=== PATIENT | female | born 1955 | race Caucasian/White ===

== ENCOUNTER → 2020-07-02 08:18 | Outpatient (BNVA) | payer OTHER, SELFPAY | PROVIDERS: PCP Internal Medicine; Referring Provider Internal Medicine; Visit Provider Orthopaedic Surgery | DX: R26.81 Unsteadiness on feet (principal); R53.1 Weakness; M23.91 Unspecified internal derangement of right knee | CPT/HCPCS: 99214 ==

== ENCOUNTER 2020-07-06 12:00 | Outpatient (RCR) | payer OTHER, SELFPAY ==
--- NOTE | 2020-07-06 12:49 | MHC.PT.DC ---
[facility] [place] Office [place] Office [place] Office [address] Tim Sharpe [address] [phone] F: [phone] F: [phone] F: [phone] F: [phone] Physical Therapy Discharge Report Diagnosis: Internal derangement of R knee Date of Surgery: NA Date of Evaluation: 06/09/20 Date of Discharge: 07/06/20 Treatments to Date: 8 Cancellations to Date: 0 No Shows to Date: 0 Discharge Status: Achieved Goals Independent with HEP Discharge Summary: 07/06/20- Pt arrived without her walker today. Per pt she has been walking around without her walker. She only gets nervous if someone bumps into her. She was continued with B LE strengthening exercises. She had no knee pain today. She however stated she had low back pain yesterday. She has been performing lumbar stabs and this has been helping her with the pain.She has been walking without an AD however continues to demonstrate toe heel pattern. When cued to perform heel toe pattern pt gets very unsteady. Unsure if pt has had this gait pattern prior to the onset of knee pain. Her toe heel gait pattern does not coincide with muscle strength assessment. Pt was initially sent her for knee pain and is currently pain free. She has achieved all goals set for her. Pt has h/o chronic back pain and has occasional flare ups however she is able to manage her pain with exercises. Pt d/c from therapy today and was advised to continue performing all her HEPs. Electronically signed by: Emily Moreland DPT Please sign and return to therapist. Thank you for your referral.
== END 2020-07-06 12:49 | disposition other institution (70) ==
LOC: HO.PT 12:00
PROVIDERS: PCP Internal Medicine; Visit Provider Orthopaedic Surgery
DX: M23.91 Unspecified internal derangement of right knee (principal)
CPT/HCPCS: 97110; 97140; 97530

== ENCOUNTER → 2020-08-19 10:10 | Outpatient (BNVA) | payer OTHER, SELFPAY | PROVIDERS: PCP Internal Medicine; Visit Provider Anesthesiology | DX: M47.817 Spondylosis without myelopathy or radiculopathy, lumbosacral region (principal) | CPT/HCPCS: 99202 ==

== ENCOUNTER → 2020-09-22 08:44 | Outpatient (BNVA) | payer OTHER, SELFPAY | PROVIDERS: PCP Internal Medicine; Visit Provider Internal Medicine Pulmonary Disease | DX: J44.9 Chronic obstructive pulmonary disease, unspecified (principal); J20.9 Acute bronchitis, unspecified; Z91.09 Other allergy status, other than to drugs and biological substances; Z87.891 Personal history of nicotine dependence | CPT/HCPCS: 99212 ==

== ENCOUNTER 2020-10-20 07:03 | Outpatient (REF) | payer OTHER, SELFPAY ==
--- NOTE | ~2020-10-20 | FL_ITS ---
EXAMINATION: XR FLUOROSCOPY WITH IMAGES CLINICAL INFORMATION: Spondylosis without myelopathy or radiculopathy lumbar sacral region. COMPARISON: None. TECHNIQUE: Fluoroscopy performed by Mariluz Shah NP. Fluoroscopy time: 0.9 minutes. DAP: 6 Gycm2. Images: 6. FINDINGS: Images demonstrate needle placement and contrast injection adjacent to the bilateral lateral L3, L4 and L5 vertebral bodies near the neuroforamen. FL/FL guidance in treatment room IMPRESSION: Fluoroscopy guidance for spinal injection.
== END 2020-10-20 07:04 | disposition home or self-care (01) ==
LOC: HO.RADIR 07:03
PROVIDERS: Visit Provider Anesthesiology
DX: M47.817 Spondylosis without myelopathy or radiculopathy, lumbosacral region (principal)
CPT/HCPCS: 64493; 64494; Q9967

== ENCOUNTER → 2020-10-29 11:32 | Outpatient (BNVA) | payer OTHER, SELFPAY | PROVIDERS: PCP Internal Medicine; Visit Provider Anesthesiology ==

== ENCOUNTER → 2020-11-11 14:59 | Outpatient (BNVA) | payer OTHER, SELFPAY | PROVIDERS: PCP Internal Medicine; Visit Provider Anesthesiology ==

== ENCOUNTER 2020-12-15 06:13 | Outpatient (REF) | payer OTHER, SELFPAY ==
--- NOTE | ~2020-12-15 | FL_ITS ---
EXAMINATION: Intraoperative fluoroscopy CLINICAL INFORMATION: Spondylosis COMPARISON: Intraoperative fluoroscopy October 20, 2020 TECHNIQUE: Intraoperative fluoroscopy was provided for use by Dr. Shah. A total of 3 images were saved to PACS. A radiologist was not present during imaging. Today's dictation is only for administrative purposes to document intraoperative fluoroscopic usage. TOTAL FLUOROSCOPIC TIME: 0.9 minutes FL/FL guidance in treatment room FINDINGS~\^^ Intraoperative fluoroscopy provided for use by Dr. Shah. Please see operative note for detailed findings.
== END 2020-12-15 06:14 | disposition home or self-care (01) ==
LOC: HO.RADIR 06:13
PROVIDERS: Visit Provider Anesthesiology
DX: M47.817 Spondylosis without myelopathy or radiculopathy, lumbosacral region (principal); M54.16 Radiculopathy, lumbar region; M23.91 Unspecified internal derangement of right knee; R53.1 Weakness
CPT/HCPCS: 64635; 64636; J3300

== ENCOUNTER → 2021-01-20 13:11 | Outpatient (BNVA) | payer OTHER, SELFPAY | PROVIDERS: PCP Internal Medicine; Visit Provider Anesthesiology | DX: M47.817 Spondylosis without myelopathy or radiculopathy, lumbosacral region (principal); M17.11 Unilateral primary osteoarthritis, right knee; S83.206A Unspecified tear of unspecified meniscus, current injury, right knee, initial encounter | CPT/HCPCS: 99212 ==

== ENCOUNTER → 2021-01-26 08:40 | Outpatient (BNVA) | payer OTHER, SELFPAY | PROVIDERS: PCP Internal Medicine; Visit Provider Internal Medicine Pulmonary Disease | DX: J44.9 Chronic obstructive pulmonary disease, unspecified (principal); Z91.09 Other allergy status, other than to drugs and biological substances | CPT/HCPCS: 99212 ==

== ENCOUNTER 2021-03-02 06:29 | Outpatient (REF) | payer OTHER, SELFPAY ==
--- NOTE | ~2021-03-02 | FL_ITS ---
EXAMINATION: XR FLUOROSCOPY WITH IMAGES CLINICAL INFORMATION: Right knee primary osteoarthritis. COMPARISON: None. TECHNIQUE: Fluoroscopy performed by Mariluz Shah NP. Fluoroscopy time: 0.1 minutes DAP: 1.52 Gycm2 Images: 2 FINDINGS: There are needles positioned, lateral and medial cortex distal femur and proximal medial tibial cortex for pain management. The joint space is maintained normal. FL/FL guidance in treatment room IMPRESSION: Fluoroscopy guidance was provided to Mariluz Shah for pain management.
== END 2021-03-02 06:30 | disposition home or self-care (01) ==
LOC: HO.RADIR 06:29
PROVIDERS: Visit Provider Anesthesiology
DX: M17.11 Unilateral primary osteoarthritis, right knee (principal); S83.206A Unspecified tear of unspecified meniscus, current injury, right knee, initial encounter; M47.817 Spondylosis without myelopathy or radiculopathy, lumbosacral region
CPT/HCPCS: 64454

== ENCOUNTER → 2021-03-08 09:54 | Outpatient (BNVA) | payer OTHER, SELFPAY | PROVIDERS: PCP Internal Medicine; Visit Provider Anesthesiology ==

== ENCOUNTER → 2021-08-26 10:52 | Outpatient (BNVA) | payer OTHER, SELFPAY | PROVIDERS: PCP Internal Medicine; Visit Provider Internal Medicine Pulmonary Disease | DX: J44.9 Chronic obstructive pulmonary disease, unspecified (principal); Z91.09 Other allergy status, other than to drugs and biological substances | CPT/HCPCS: 99212 ==

== ENCOUNTER 2021-10-19 09:01 | Outpatient (REF) | payer OTHER, SELFPAY ==
--- NOTE | ~2021-10-19 | MM_ITS ---
EXAMINATION: MM SCREENING DIGITAL BREAST TOMOSYNTHESIS, BILATERAL CLINICAL INFORMATION: Screening. Asymptomatic. The lifetime risk of breast cancer based on the Tyrer-Cuzick Model is 17%. COMPARISON: Outside mammography: 02/18/2021, 08/09/2019 TECHNIQUE: Digital breast tomosynthesis is performed in both the craniocaudal and mediolateral oblique views along with computer-aided detection (CAD). Synthesized 2D images are generated from the tomosynthesis. FINDINGS: There are scattered areas of fibroglandular density (ACR BI-RADS breast composition Category b). There are no significant masses, abnormal calcifications, or other abnormalities. There are scattered bilateral minor parenchymal asymmetries similar to prior studies outside exams. There are some shifting fibroglandular densities from year to year related to positioning and compression. No developing density. The axilla and skin contours are unremarkable. MM/MM tomosynthesis screening BI IMPRESSION: No significant changes from prior outside exams. ASSESSMENT: BI-RADS 2: Benign RECOMMENDATION: Routine annual mammography screening. This patient's information was entered into a reminder system with a target due date for their next mammogram.
== END 2021-10-19 09:02 | disposition home or self-care (01) ==
LOC: HO.MAMMO 09:01
PROVIDERS: PCP Internal Medicine; Visit Provider Internal Medicine
DX: Z12.31 Encounter for screening mammogram for malignant neoplasm of breast (principal)
CPT/HCPCS: 77063; 77067

== ENCOUNTER 2021-11-18 07:31 | Outpatient (REF) | payer OTHER, SELFPAY ==
--- NOTE | ~2021-11-18 | CT_ITS ---
EXAMINATION: CT CHEST SCREENING CLINICAL INFORMATION: Smoking history COMPARISON: Previous chest CT April 2020 TECHNIQUE: Multidetector volumetric CT imaging of the chest is performed without contrast using low dose technique. Additional 2D coronal and sagittal reformatted images and axial 3D maximum intensity projection (MIP) images are generated on the CT workstation. This CT examination was performed using dose optimization techniques as appropriate, variously including the following: *Automated exposure control *Adjustment of mA and/or kV according to patient size (this includes techniques or standardized protocols for targeted exams where dose is matched to indication/reason for exam; i.e. extremities or head) *Use of iterative reconstruction technique DLP: 65 mGy-cm FINDINGS: LUNGS: The small bilateral pulmonary nodules are stable. Largest pulmonary nodule measures 4 mm. No new pulmonary nodule is seen. There is mild scarring or subsegmental atelectasis in the posterior right upper lobe. There is a small cyst in the left upper lobe. No endobronchial or endotracheal lesion is seen. MEDIASTINUM: The mediastinum is normal. PLEURA: There is no pleural effusion. No pleural mass or thickening. AXILLA: No adenopathy. UPPER ABDOMEN: Unremarkable OSSEOUS STRUCTURES: There are old left posterior rib fractures. CT/CT lung screening IMPRESSION: Stable small pulmonary nodules or micronodules. ASSESSMENT: Lung-RADS category 2: Benign RECOMMENDATION: Annual low-dose chest CT follow-up recommended.
== END 2021-11-18 07:32 | disposition home or self-care (01) ==
LOC: HO.CT 07:31
PROVIDERS: Visit Provider Physician Assistant Medical
DX: Z87.891 Personal history of nicotine dependence (principal)
CPT/HCPCS: 71271

== ENCOUNTER → 2021-12-28 10:09 | Outpatient (BNVA) | payer OTHER, SELFPAY | PROVIDERS: PCP Internal Medicine; Visit Provider Internal Medicine Pulmonary Disease | DX: J44.9 Chronic obstructive pulmonary disease, unspecified (principal); Z91.09 Other allergy status, other than to drugs and biological substances | CPT/HCPCS: 99212 ==

== ENCOUNTER → 2022-05-09 09:20 | Outpatient (BNVA) | payer OTHER, SELFPAY | PROVIDERS: PCP Internal Medicine; Visit Provider Internal Medicine Pulmonary Disease | DX: J44.9 Chronic obstructive pulmonary disease, unspecified (principal); Z91.09 Other allergy status, other than to drugs and biological substances; Z87.891 Personal history of nicotine dependence; Z79.899 Other long term (current) drug therapy | CPT/HCPCS: 99212 ==

== ENCOUNTER 2022-05-20 09:48 | Outpatient (REF) | payer OTHER, SELFPAY ==
[2022-05-20 10:04] LABS: MANUAL DIFF FLAG NO
[2022-05-20 10:51] LABS: Basophils Percent Auto 0.5 % (0-2); Eosinophils Absolute Auto 0.1 X10*3/uL (0.0-0.4); Eosinophils Percent Auto 1.6 % (0-4); Hematocrit 45.5 % (37.0-47.0); Hemoglobin 14.6 g/dl (12.0-16.0); Imm Gran Abs Auto 0.03 X10*3/uL (0.00-0.03); Imm Gran Pct Auto 0.3 % (0.0-0.4); Lymphocytes Percent Auto 22.5 % (20-40); Mean Corpuscular HGB Conc 32.1 g/dl (31.0-35.0); Mean Corpuscular Hemoglobin 30.2 pg (27.0-33.0); Mean Corpuscular Volume 94.2 fL (80.0-98.0); Mean Platelet Volume 11.2 fL (9.4-12.3); Monocytes Absolute Auto 0.7 X10*3/uL (0.1-1.2); Monocytes Percent Auto 7.5 % (2-11); Neutrophils Percent Auto 67.6 % (45-73); Platelet Count 286 X10*3/uL (160-400); Red Blood Count 4.83 X10*6/uL (4.20-5.50); Red Cell Distribution Width 13.4 % (11.0-16.0); White Blood Count 8.8 X10*3/uL (4.8-10.8)
[2022-05-20 11:38] LABS: Alanine Aminotransferase 44 U/L (0-31); Albumin Level 4.2 g/dL (3.5-5.0); Alkaline Phosphatase 104 U/L (39-117); Anion Gap 18 (12-20); Aspartate Amino Transferase 31 U/L (5-31); Bilirubin Total 0.4 mg/dL (0.0-1.0); Blood Urea Nitrogen 21 mg/dL (9-16); Carbon Dioxide 24 mmol/L (22-29); Chloride 100 mmol/L (96-108); Cholesterol 235 mg/dL; Estimated Glomerular Filt Rate 56; Glucose Fasting 109 mg/dL (60-99); HDL Cholesterol 50 mg/dL; LDL Cholesterol Calculated 157 mg/dl; Potassium 5.5 mmol/L (3.3-5.1); Sodium 136 mmol/L (135-145); Total Protein 6.7 g/dL (6.5-8.0); Triglycerides 140 mg/dL
[2022-05-20 11:39] LABS: Thyroid Stimulating Hormone 1.03 uIU/mL (0.32-4.0)
== END 2022-05-20 09:49 | disposition home or self-care (01) ==
LOC: HO.LAB 09:48
PROVIDERS: PCP Internal Medicine; Visit Provider Internal Medicine Pulmonary Disease
DX: Z00.00 Encounter for general adult medical examination without abnormal findings (principal); E03.9 Hypothyroidism, unspecified; E11.9 Type 2 diabetes mellitus without complications
CPT/HCPCS: 36415; 80053; 80061; 84443; 85025

== ENCOUNTER → 2022-06-07 14:18 | Outpatient (BNVA) | payer OTHER, SELFPAY | PROVIDERS: PCP Internal Medicine; Visit Provider Internal Medicine Pulmonary Disease | DX: J45.909 Unspecified asthma, uncomplicated (principal); Z71.89 Other specified counseling | CPT/HCPCS: 99211 ==

== ENCOUNTER 2022-08-19 10:16 | Outpatient (REF) | payer OTHER, SELFPAY ==
[2022-08-19 11:23] LABS: Influenza A PCR NEGATIVE (Negative); Influenza B PCR NEGATIVE (Negative); Resp Syncy Virus RNA Qual PCR NEGATIVE (Negative); SARS COV2 PCR INHOUSE POSITIVE (Negative)
== END 2022-08-19 10:17 | disposition home or self-care (01) ==
LOC: HO.LAB 10:16
PROVIDERS: Internal Medicine Pulmonary Disease; Visit Provider Internal Medicine
DX: Z20.822 Contact with and (suspected) exposure to COVID-19 (principal); R05.9 Cough, unspecified
CPT/HCPCS: 0241U

== ENCOUNTER 2022-11-01 09:26 | Outpatient (REF) | payer OTHER, SELFPAY ==
--- NOTE | ~2022-11-01 | MM_ITS ---
EXAMINATION: MM SCREENING DIGITAL BREAST TOMOSYNTHESIS, BILATERAL CLINICAL INFORMATION: Screening. Asymptomatic. The lifetime risk of breast cancer based on the Tyrer-Cuzick Model is 13.6%. COMPARISON: Mammography: 10/19/2021 and studies dating back to 01/21/2019. TECHNIQUE: Digital breast tomosynthesis is performed in both the craniocaudal and mediolateral oblique views along with computer-aided detection (CAD). Synthesized 2D images are generated from the tomosynthesis. FINDINGS: There are scattered areas of fibroglandular density (ACR BI-RADS breast composition Category b). There is a stable parenchymal pattern of the left breast. Within the medial aspect of the right breast, there is an increasing density measuring approximately 1.2 x 0.9 cm in size lying approximately 5.5 cm from the nipple. Spot compression film in craniocaudal projection and rolled craniocaudal views are recommended. No definite correlate is seen and mediolateral oblique projection. MM/MM tomosynthesis screening BI IMPRESSION: Right breast density for further evaluation as described. ASSESSMENT: BI-RADS 0: Incomplete - Need Additional Imaging Evaluation RECOMMENDATION: 1. Additional views of the right breast. 2. Targeted ultrasound if warranted after review of the additional views. 3. Radiology department staff will contact the patient for additional imaging. This patient's information was entered into a reminder system with a target due date for their next mammogram.
== END 2022-11-01 09:27 | disposition home or self-care (01) ==
LOC: HO.MAMMO 09:26
PROVIDERS: PCP Internal Medicine; Visit Provider Internal Medicine
DX: Z12.31 Encounter for screening mammogram for malignant neoplasm of breast (principal)
CPT/HCPCS: 77063; 77067

== ENCOUNTER 2022-11-07 09:21 | Outpatient (REF) | payer OTHER, SELFPAY ==
--- NOTE | ~2022-11-07 | MM_ITS ---
EXAMINATION: MM DIAGNOSTIC DIGITAL BREAST TOMOSYNTHESIS, RIGHT CLINICAL INFORMATION: Recall from screening for asymmetric density mid medial right breast on CC view, possibly summation artifact. Family history breast cancer. TC score 14%. COMPARISON: Mammography: 11/01/2022, 10/19/2021; outside mammography 02/18/2021, 03/12/2020, 08/15/2019, 08/09/2019 ([facility]). TECHNIQUE: Digital breast tomosynthesis is performed. 2D images are generated from the tomosynthesis. The following views are obtained: Rolled CC x2, spot CC x2 FINDINGS: There are scattered areas of fibroglandular density (ACR BI-RADS breast composition Category b). There are scattered minor parenchymal asymmetries similar to prior exams. The additional views show no developing density or interval mass or architectural abnormality. No significant changes. Results are discussed with the patient at time of visit. MM/MM tomosynthesis added views R IMPRESSION: Additional views show no significant changes from prior studies. ASSESSMENT: BI-RADS 2: Benign RECOMMENDATION: Routine annual mammography screening. This patient's information was entered into a reminder system with a target due date for their next mammogram.
== END 2022-11-07 09:22 | disposition home or self-care (01) ==
LOC: HO.MAMMO 09:21
PROVIDERS: Visit Provider Internal Medicine
DX: R92.2 Inconclusive mammogram (principal)
CPT/HCPCS: 77061; 77065

== ENCOUNTER → 2022-12-06 13:12 | Outpatient (BNVA) | payer OTHER, SELFPAY | PROVIDERS: PCP Internal Medicine; Visit Provider Internal Medicine Pulmonary Disease | DX: J44.9 Chronic obstructive pulmonary disease, unspecified (principal); Z91.09 Other allergy status, other than to drugs and biological substances | CPT/HCPCS: 99212 ==

== ENCOUNTER 2023-04-15 09:27 | Outpatient (AMB) | payer OTHER, SELFPAY ==
--- NOTE | 2023-04-15 09:30 | AM.OFFWIN_ITS ---
Intake Vital Signs 04/15/23 09:35 BP 122/72 Blood Pressure Location Lt brachial Position Sitting Pulse 85 Pulse Source Pulse Oximeter Temp 98.8 F Temp Source Oral Pulse Oximetry (%) 97 Oxygen Delivery Method Room Air Intake Visit Reasons: Bi knee pain & swollen Intake Note: Pt is here today c/o bilateral knee pain and swollen x4mo.on and off Patient Tobacco Use Status: Never used Tobacco Allergies amoxicillin [AMOXICILLIN] Allergy (Intermediate, Verified 04/15/23 10:01) RASH cefaclor [From CECLOR] Allergy (Intermediate, Verified 04/15/23 10:01) RASH tolmetin [From TOLECTIN] Allergy (Intermediate, Verified 04/15/23 10:01) RASH Sulfa (Sulfonamide Antibiotics) Allergy (Unknown, Verified 04/15/23 10:) hives Medication List - Last Reconciled 04/15/23 by Catina Alonso CNP albuterol sulfate 90 mcg/actuation inhalation citalopram 40 mg PO DAILY Dupixent Pen (dupilumab) 300 mg (2 mL) subcut Q2W NS esomeprazole magnesium 40 mg PO DAILY HPI HPI Comments History of Present Illness Details 67-year-old female presents today for complaint of bilateral knee pain x4-6 months. Past medical history significant for torn meniscus right knee, and osteoarthritis of right knee. Patient reports progressive worsening pain of right knee, and new onset left knee pain with increased swelling over the last 4-6 months. Pain worse with weight bearing, and going upstairs, occasional knee's give out. Previously she was seeing Orthopedics for right knee pain, Dr. Rondon, last visit in June,. She does endorse taking acetaminophen and Ibuprofen for pain w/ little to no relief. She denies trauma, or injury associated w/ knee pain, denies fever, chills, CP, SOB, abdominal pain, changes in bowels or bladder. [facility] Medical History Asthma Asthma-COPD overlap syndrome Gait disturbance History of ectopic History of gangrene Internal derangement of right knee Leg weakness Lumbar radiculopathy Morbidly obese Osteoarthritis of right knee Right knee meniscal tear Spondylosis of lumbosacral spine without myelopathy Surgical History History of appendectomy History of colonoscopy History of repair of hiatal hernia History of tonsillectomy Family History Father Mini stroke Vascular dementia Mother Breast cancer Sister Breast cancer Brother No problems noted. Brother No problems noted. Brother No problems noted. Sister No problems noted. Sister No problems noted. Sister No problems noted. 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 Cognitive needs: No Hearing needs: No Vision needs: No Review of Systems Const All systems reviewed & are unremarkable except as noted in HPI and below Physical Exam Vital Signs: Last Vital Signs Temp 98.8 F 04/15/23 09:35 Pulse 85 04/15/23 09:35 BP 122/72 04/15/23 09:35 Pulse Ox 97 04/15/23 09:35 Oxygen Delivery Method Room Air 04/15/23 09:35 Const General: healthy appearing and no acute distress Nutritional Appearance: overweight Orientation/consciousness: patient oriented x3 Limitations: no limitations HEENT Head: Yes normocephalic and Yes atraumatic Ears: hearing grossly normal bilaterally Chest Chest palpation & inspection: normal inspection of the chest Resp Effort & Inspection: normal respiratory effort, no cough, no respiratory distress and not tachypneic Auscultation: clear to auscultation bilaterally Cardio Rate: regular rate Rhythm: regular rhythm Heart sounds: S1 normal heart sound present and S2 normal heart sound present Peripheral pulses: Peripheral pulses 2+ throughout GI Palpation (GI): Soft to palpation and nontender Auscultation: normal bowel sounds General: Yes no CVA tenderness Back/Spine/Pelvis Back: no CVA tenderness Skin General skin exam: no rashes or lesions noted and turgor normal Neuro General: patient oriented x3 and moves all extremities Extrem Right upper extremity: normal to inspection and normal capillary refill; no cyanosis and no edema Left upper extremity: normal to inspection and normal capillary refill; no cyanosis and no edema Right lower extremity: knee Details: tenderness and abnormal ROM Details: pain with active ROM during and pain with passive ROM during; no swelling, no crepitus and no unusual warmth Left lower extremity: knee Details: tenderness, swelling Location: of the patella, abnormal ROM Details: pain with active ROM and pain with passive ROM and knee ligament exam normal; no crepitus and no unusual warmth Psych Appearance: well kempt Mental Status: mental status grossly normal Speech and movement: Normal speech and movement present Affect: normal affect Attitude: cooperative Assessment & Plan Assessment & Plan (1) Osteoarthritis of patellofemoral joints of both knees: Code(s): M17.0 - Bilateral primary osteoarthritis of knee Plan: 67-year-old female presents today for complaint of chronic bilateral knee pain with progression Bilateral knee x-ray reveal osteoarthritis, previous right meniscus tear. Will send referral for orthopedic for Dr. Obregon who was previously involved in her care. Will provide short 5 day RX of prednisone 20 mg po bid for inflammation and pain; will also send Rx for diclofenac gel to apply to bilateral knee pain. Encouraged to follow up w/ PCP for possible referral to pain clinic, or physical therapy. Will return to office for worsening pain Orders: Referrals Orthopedics Referral M17.0 - Bilateral primary osteoarthritis of knee Medications: New prednisone 20 mg PO DAILY 5 tabs 0RF G89.29 - Other chronic pain, M17.0 - Bilateral primary osteoarthritis of knee, M25.561 - Pain in right knee, M25.562 - Pain in left knee diclofenac sodium 1% (Arthritis Pain (diclofenac)) apply to single knee, ankle, foot; for foot includes sole/toes/top of foot 4 grams topical QID 100 grams 0RF M17.0 - Bilateral primary osteoarthritis of knee diclofenac sodium 1% (Arthritis Pain (diclofenac)) apply to single knee, ankle, foot; for foot includes sole/toes/top of foot 4 grams topical QID 100 grams 0RF M17.0 - Bilateral primary osteoarthritis of knee prednisone 20 mg PO BID 10 tabs 0RF G89.29 - Other chronic pain, M17.0 - Bilateral primary osteoarthritis of knee, M25.561 - Pain in right knee, M25.562 - Pain in left knee Coding Level of Care Code Est Pt Level 4 (45319) Diagnoses Osteoarthritis of patellofemoral joints of both knees M17.0
[2023-04-15 09:35] VITALS: BP 122/72; PULSE 85; TEMP 37.1; O2SAT 97
== END 2023-04-15 10:48 | disposition home or self-care (01) ==
PROVIDERS: PCP Internal Medicine; Visit Provider Nurse Practitioner Acute Care
DX: M17.0 Bilateral primary osteoarthritis of knee (principal)
CPT/HCPCS: 99051; 99214

== ENCOUNTER 2023-04-15 10:15 | Outpatient (REF) | payer OTHER, SELFPAY ==
--- NOTE | ~2023-04-15 | XR_ITS ---
EXAMINATION: XR KNEE, RIGHT CLINICAL INFORMATION: Right knee pain. COMPARISON: None available. TECHNIQUE: Four views of the right knee. FINDINGS: No fracture or joint effusion. Alignment is anatomic. Joint spaces are maintained. No abnormal soft tissue calcification. XR/XR knee RT 4V IMPRESSION: Unremarkable right knee.
--- NOTE | ~2023-04-15 | XR_ITS ---
EXAMINATION: XR KNEE, LEFT CLINICAL INFORMATION: Left knee pain. COMPARISON: None available. TECHNIQUE: Four views of the left knee. FINDINGS: No fracture or joint effusion. Alignment is anatomic. Joint spaces are maintained. No abnormal soft tissue calcification. XR/XR knee LT 4V IMPRESSION: Unremarkable left knee.
== END 2023-04-15 10:16 | disposition home or self-care (01) ==
LOC: HO.HMGCX 10:15
PROVIDERS: PCP Internal Medicine; Visit Provider Nurse Practitioner Acute Care
DX: M25.561 Pain in right knee (principal); M25.562 Pain in left knee; G89.29 Other chronic pain
CPT/HCPCS: 73564

== ENCOUNTER 2023-06-22 12:30 | Outpatient (AMB) | payer OTHER, SELFPAY ==
--- NOTE | 2023-06-22 12:37 | A.OFFVIS_ITS ---
Intake Intake Visit Reasons: ov- Bilateral primary osteoarthritis of knee Intake Note: Kaley is a 67 year old female who presents today for a follow up of her bilateral knee OA, Last injection was done 05/25/2020 in the right knee. Patient reports that she is having pain in the left glute and radiates down the left leg. Injections in the past were not helpful Allergies amoxicillin [AMOXICILLIN] Allergy (Intermediate, Verified 04/15/23 10:01) RASH cefaclor [From CECLOR] Allergy (Intermediate, Verified 04/15/23 10:01) RASH tolmetin [From TOLECTIN] Allergy (Intermediate, Verified 04/15/23 10:01) RASH Sulfa (Sulfonamide Antibiotics) Allergy (Unknown, Verified 04/15/23 10:01) hives HPI ov- Bilateral primary osteoarthritis of knee HPI Details Kaley is a 67 year old woman who presents primarily with complaints of LBP. She complains of pain in her left buttocks which radiates down the posterior thigh and into her knee. She also complains of right knee pain, and has been seen for a meniscus tear in the past Concerning her right knee she says she has pain with daily activity, and at night. She is unable to lay on her right side without pain and has to sleep with a pillow between her legs. She says stairs are very difficult for her and she has pain with prolonged standing. She also reports feeling unsteady on her feet at times. She has known LBP and has been seen by Pain Management in the past. She reports feeling burning in her leg at times, and reports having previous procedures performed on her LB. [facility] Medical History Asthma Asthma-COPD overlap syndrome Gait disturbance History of ectopic History of gangrene Internal derangement of right knee Leg weakness Lumbar radiculopathy Morbidly obese Osteoarthritis of right knee Right knee meniscal tear Spondylosis of lumbosacral spine without myelopathy Surgical History History of appendectomy History of colonoscopy History of repair of hiatal hernia History of tonsillectomy Family History Father Mini stroke Vascular dementia Mother Breast cancer Sister Breast cancer Brother No problems noted. Brother No problems noted. Brother No problems noted. Sister No problems noted. Sister No problems noted. Sister No problems noted. 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 Cognitive needs: No Hearing needs: No Vision needs: No Review of Systems Const All systems reviewed & are unremarkable except as noted in HPI and below Physical Exam Const General: no acute distress, alert and awake Orientation/consciousness: patient oriented x3 HEENT Head: Yes normocephalic and Yes atraumatic Eyes EOM: EOMs intact bilaterally Resp Effort & Inspection: normal respiratory effort and able to speak in complete sentences Cardio Jugular venous distension: no JVD Skin General skin exam: turgor normal Rashes: no rashes Neuro General: patient oriented x3 Extrem Other: Left Leg: neg Stinchfield and neg impringement Right Knee: TTP over pes bursas Otherwsie unremarkable exam Psych Appearance: grossly normal Affect: normal affect Attitude: cooperative Office Procedures Joint Injection/Drain Joint Injection/Drain Details: Injected 1 mL of Decadron and 3 mL 1% lidocaine and 3 mL of 0.25% Marcaine. Site was prepped using aseptic technique. Patient tolerated the procedure well. Primary Site: right knee (pes bursa) Approach Used: anterolateral Coding 75531 - Large joint Procedure code (CPT) selection complete Results Reviewed Results Reviewed: 06/22/23 12:45 BUPivacaine MPF 0.25 % [Sensorcaine-MPF 0.25% 10 ML] 10 ml .ROUTE .STK-MED ONE Lidocaine HCl 2 % MPF [Xylocaine 2 % MPF] 5 ml .ROUTE .STK-MED ONE dexAMETHasone sod phosphate [Decadron] 4 mg .ROUTE .STK-MED ONE I personally reviewed relevant radiographs. Assessment & Plan Assessment & Plan (1) Spondylosis of lumbosacral spine without myelopathy: Code(s): M47.817 - Spondylosis without myelopathy or radiculopathy, lumbosacral region Plan: This is a 67 year old woman with symptoms of Sciatica. She has burning pain in her left gluteal which radiates down her posterior thigh and into her knee. She denies any numbness or tingling. I referred her to Dr. Mejia in Pain Management to discuss this. (2) Pes anserinus bursitis of right knee: Code(s): M70.51 - Other bursitis of knee, right knee Plan: Right pes anserine bursitis. Pain in her right knee with daily activity, worse with using stairs or at night when lying on her side. She has a hx of falls and feels unsteady with ambulation. I recommend NSAIDs and ice. I injected her pes anserine bursa today, which she tolerated well. She can follow up prn. She was given a note for jury duty with restrictions due to her difficulty using stairs. (3) Lumbar radiculopathy: Code(s): M54.16 - Radiculopathy, lumbar region Plan Scribed for Joey Obregon MD by Edwin Carter, coroner/medical examiner, on 06/22/23 at 12:50 PM, EST. Orders: Referrals Pain Management Referral M54.16 - Radiculopathy, lumbar region Coding Level of Care Code Est Pt Level 4 (54332) Diagnoses Spondylosis of lumbosacral spine without myelopathy M47.817 Pes anserinus bursitis of right knee M70.51 Lumbar radiculopathy M54.16 CPT Codes Coding - 68549 Large joint: 05128 - Large joint ([id number])
== END 2023-06-22 13:07 | disposition home or self-care (01) ==
PROVIDERS: PCP Internal Medicine; Visit Provider Orthopaedic Surgery
DX: M70.51 Other bursitis of knee, right knee (principal); M47.817 Spondylosis without myelopathy or radiculopathy, lumbosacral region; M54.16 Radiculopathy, lumbar region
CPT/HCPCS: 20610; 99214

== ENCOUNTER → 2023-06-22 12:30 | Outpatient (BNVA) | payer OTHER, SELFPAY | PROVIDERS: PCP Internal Medicine; Visit Provider Orthopaedic Surgery | DX: M70.51 Other bursitis of knee, right knee (principal); M47.817 Spondylosis without myelopathy or radiculopathy, lumbosacral region; M54.16 Radiculopathy, lumbar region | CPT/HCPCS: 20610; 99212; J1100 ==

== ENCOUNTER 2023-07-06 10:32 | Outpatient (AMB) | payer OTHER, SELFPAY ==
--- NOTE | 2023-07-06 10:43 | A.OFFVIS_ITS ---
Intake Vital Signs 07/06/23 10:54 Height 5 ft 1 in Weight 202 lb 4 oz BMI 38.2 BP 131/66 Blood Pressure Location Lt brachial Position Sitting Respiration 80 H Pulse 80 Pulse Source Pulse Oximeter Pulse Oximetry (%) 98 Oxygen Delivery Method Room Air Intake Visit Reasons: Radiculopathy, Lumbar Region/Confirmed Allergies amoxicillin [AMOXICILLIN] Allergy (Intermediate, Verified 07/06/23 10:41) RASH cefaclor [From CECLOR] Allergy (Intermediate, Verified 07/06/23 10:41) RASH tolmetin [From TOLECTIN] Allergy (Intermediate, Verified 07/06/23 10:41) RASH Sulfa (Sulfonamide Antibiotics) Allergy (Unknown, Verified 07/06/23 10:41) hives HPI HPI Comments History of Present Illness Details Kaley presents back to the office today for follow up lower back pain with radiation down left leg. Patient reports she has been suffering with this for a couple years but recently developed pain down the left leg. The pain down her left leg started after she had increased her activity while moving to a new apartment. She reports pain posteriorly starting in the buttocks and radiating down the left leg into the thigh. At times the pain will go down to the ankle. She denies shooting, tingling, numbness or pins/needles. She states the pain is worse with standing and when using stairs. She has not been to PT for many years. Currently taking naproxyn as needed for the pain with some improvement. Pain today is rated as 5/10, aching, cramping and throbbing. Pain is negatively impacting patients general activity, sleep, walking and standing. She has received injections in the past with L3 L4 DR L5 RFA that resulted in about 8 months of pain relief. Her pain at that time did not radiate down the left leg. She denies red flag symptoms including new loss of bowel, bladder or saddle a nesthesia. Prior: Kaley is on the phone today to discuss the results of right diagnostic genicular nerve block. She reported 24 hours of complete pain relief 100% no pain. She reported some discomfort on the needle insertion sites but her regular chronic knee pain was gone. She is very reluctant to go for knee replacement. She was offered 2 options radiofrequency ablation of the right genicular nerves. Versus peripheral nerve stimulation. She somehow became very concerned about psychological evaluation in the conjunction of peripheral nerve stimulation. She decided to go for cooled radiofrequency ablation. I will schedule her procedure accordingly. She does need sedation for this procedure. prior: History of knee pain and axial lower back pain. She is under care for the knee pain with Dr. Obregon. She was diagnosed with marginal meniscal tear. She was also complaining on lower back pain. On diagnostic medial branch block she reported 100% pain relief for 24 hours after the injection. She reported better mobility for this 24 hours better social interactions for this 24 hours better activity of daily living. I performed L3-L4 dorsal ramus L5 bilateral radiofrequency ablation she reports great pain relief for her back pain with minor aches on the left side. On the background of reduced lower back pain she complains more on pain in the knee. She has marginal meniscal tear. She was not recommended to have surgery. She had extensive physical therapy. [facility] Medical History Asthma Asthma-COPD overlap syndrome Gait disturbance History of ectopic History of gangrene Internal derangement of right knee Leg weakness Lumbar radiculopathy Morbidly obese Osteoarthritis of right knee Right knee meniscal tear Spondylosis of lumbosacral spine without myelopathy Surgical History History of appendectomy History of colonoscopy History of repair of hiatal hernia History of tonsillectomy Family History Father Mini stroke Vascular dementia Mother Breast cancer Sister Breast cancer Brother No problems noted. Brother No problems noted. Brother No problems noted. Sister No problems noted. Sister No problems noted. Sister No problems noted. 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 Answers questions appropriately. Fully engaged in examination. Skin: warm, dry, intact HEENT: Normocephalic. Hearing intact. Cardiac: External chest normal in appearance. Respiratory: No cough, audible wheezing or stridor. Abdomen: without gross distension. Neurological: Oriented to person, place, time and situation. Thought process intact. Psychiatric: Appropriate mood and affect. Good judgment and insight. Back/Spine/Pelvis Other: Lumbar exam: Able to stand on bilateral tiptoes and bilateral heels. Able to transition from sit to stand unassisted. Ambulates with bilaterally normal heel strike and toe off Visual inspection without gross abnormality Tender to palpation over PSIS, left worse than right Nontender to palpation over midline lumbar vertebrae ROM: limited secondary to pain with extension to 10 degrees. flexion to 60 degrees Strength: 5/5 BLE Sensation: intact and symmetric BLE DTR: intact and symmetric SLR negative Thigh thrust positive bilaterally Gaenslens positive bilaterally Shonna postive bilaterally Assessment & Plan Assessment & Plan (1) Sacroiliac joint dysfunction of both sides: Code(s): M53.3 - Sacrococcygeal disorders, not elsewhere classified (2) Spondylosis of lumbosacral spine without myelopathy: Code(s): M47.817 - Spondylosis without myelopathy or radiculopathy, lumbosacral region Sivakumar Roche is a very pleasant 67 year old female who presented to the office today for evaluation and management of her chronic lower back pain. History, physical exam and provocative testing consistent with bilateral sacroiliac joint dysfunction and lumbar spondylosis. Order placed for PT eval and treat Cyclobenzaprine 5 mg p.o. b.i.d. as needed for muscle spasm. Patient instructed on cautions for use. Discussed options for treatment including diagnostic interventional testing, epidural steroid injections, peripheral nerve stimulation with Sprint, RFA and more permanent neuromodulation. Patient will follow up here after completion of several weeks of physical therapy. If pain is unchanged will plan for fluoroscopy guided diagnostic bilateral sacroiliac joint injections with local anesthetic. All questions and concerns have been answered and patient agrees with the plan. Follow up after injections and sooner if needed. Orders: Orders PT Evaluation and Treatment Today M53.3 - Sacrococcygeal disorders, not elsewhere classified, M54.16 - Radiculopathy, lumbar region Medications: New cyclobenzaprine may cause drowsiness, no driving while taking this medication. Do not combine with alcohol or other [employer]ING [employer] depressants 5 mg PO BID PRN 30 tabs 0RF muscle spasm Coding Level of Care Code Est Pt Level 4 (37083) Diagnoses Sacroiliac joint dysfunction of both sides M53.3 Spondylosis of lumbosacral spine without myelopathy M47.817
[2023-07-06 10:54] VITALS: BP 131/66; PULSE 80; RESP 80; O2SAT 98; BMI 38.2
== END 2023-07-06 11:25 | disposition home or self-care (01) ==
PROVIDERS: PCP Internal Medicine; Referring Provider Orthopaedic Surgery; Visit Provider Registered Nurse Emergency
DX: M53.3 Sacrococcygeal disorders, not elsewhere classified (principal); M47.817 Spondylosis without myelopathy or radiculopathy, lumbosacral region
CPT/HCPCS: 99214

== ENCOUNTER → 2023-07-06 10:32 | Outpatient (BNVA) | payer OTHER, SELFPAY | PROVIDERS: PCP Internal Medicine; Referring Provider Orthopaedic Surgery; Visit Provider Registered Nurse Emergency | DX: M47.817 Spondylosis without myelopathy or radiculopathy, lumbosacral region (principal); M53.3 Sacrococcygeal disorders, not elsewhere classified | CPT/HCPCS: 99212 ==

== ENCOUNTER 2023-08-02 08:20 | Outpatient (REF) | payer OTHER, SELFPAY ==
--- NOTE | ~2023-08-02 | CT_ITS ---
EXAMINATION: CT CHEST SCREENING CLINICAL INFORMATION: Former smoker, quit 3 years ago, 1 pack per day smoking history COMPARISON: 11/18/2021 and 04/29/2024. TECHNIQUE: Multidetector volumetric CT imaging of the chest is performed without contrast using low dose technique. Additional 2D coronal and sagittal reformatted images and axial 3D maximum intensity projection (MIP) images are generated on the CT workstation. This CT examination was performed using dose optimization techniques as appropriate, variously including the following: *Automated exposure control *Adjustment of mA and/or kV according to patient size (this includes techniques or standardized protocols for targeted exams where dose is matched to indication/reason for exam; i.e. extremities or head) *Use of iterative reconstruction technique DLP: 67 mGy-cm FINDINGS: LAMP SHADE SEWER: Elevated right hemidiaphragm. LUNGS: Trachea and bronchi are patent. Mild centrilobular emphysema. Scattered atelectasis. Stable 2 mm right upper lobe nodule, 6:155 and 3 mm left upper lobe nodule, 6:305. MEDIASTINUM: No thyroid pathology. Small hiatal hernia. No pathologic mediastinal lymphadenopathy. Heart size within normal limits. No pericardial effusion. Nonaneurysmal aorta with atherosclerotic calcifications. Nonenlarged pulmonary arteries. CORONARY ARTERY CALCIFICATION: None visualized on this study. PLEURA: There is no pleural effusion. No pleural mass or thickening. AXILLA: No lymphadenopathy. UPPER ABDOMEN: Unremarkable OSSEOUS STRUCTURES: Multiple old left rib fractures. Mild kyphosis. Mild mid thoracic vertebral body compression deformities. No suspicious osseous lesions. CT/CT lung screening IMPRESSION: Stable pulmonary nodules, none larger than 3 mm ASSESSMENT: Lung-RADS category 2: Benign RECOMMENDATION: Routine annual low-dose CT screening in 12 months.
== END 2023-08-02 08:21 | disposition home or self-care (01) ==
LOC: HO.CT 08:20
PROVIDERS: PCP Internal Medicine; Visit Provider Physician Assistant Medical
DX: Z12.2 Encounter for screening for malignant neoplasm of respiratory organs (principal); Z87.891 Personal history of nicotine dependence
CPT/HCPCS: 71271

== ENCOUNTER 2023-08-11 09:11 | Outpatient (AMB) | payer OTHER, SELFPAY ==
[2023-08-11 09:24] VITALS: BP 122/64; PULSE 85; O2SAT 96; BMI 37.9
--- NOTE | 2023-08-11 09:24 | MHC.OFFVIS ---
Intake Vital Signs 08/11/23 09:24 Height 5 ft 1 in Weight 200 lb 9.93 oz BMI 37.9 BP 122/64 Blood Pressure Location Rt brachial Position Sitting Pulse 85 Pulse Source Doppler Pulse Oximetry (%) 96 Oxygen Delivery Method Room Air Intake Visit Reasons: copd Allergies amoxicillin [AMOXICILLIN] Allergy (Intermediate, Verified 07/06/23 10:41) RASH cefaclor [From CECLOR] Allergy (Intermediate, Verified 07/06/23 10:41) RASH tolmetin [From TOLECTIN] Allergy (Intermediate, Verified 07/06/23 10:41) RASH Sulfa (Sulfonamide Antibiotics) Allergy (Unknown, Verified 07/06/23 10:41) hives HPI copd HPI Details 68-year-old lady, former approximately 30 pack-year smoker, quit 2014 followed for severe persistent asthma/COPD overlap syndrome and environmental allergies.? She has been using Dupixent with excellent control of her symptoms. She rarely requires to use her albuterol MDI or Spiriva. She denies any recent exacerbations. [facility] Medical History Asthma Asthma-COPD overlap syndrome Gait disturbance History of ectopic History of gangrene Internal derangement of right knee Leg weakness Lumbar radiculopathy Morbidly obese Osteoarthritis of right knee Right knee meniscal tear Spondylosis of lumbosacral spine without myelopathy Surgical History History of appendectomy History of colonoscopy History of repair of hiatal hernia History of tonsillectomy Family History Father Mini stroke Vascular dementia Mother Breast cancer Sister Breast cancer Brother No problems noted. Brother No problems noted. Brother No problems noted. Sister No problems noted. Sister No problems noted. Sister No problems noted. 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 Cognitive needs: No Hearing needs: No Vision needs: No Review of Systems Const Denies daytime sleepiness, Denies excessive sweating, Denies fatigue, Denies fever(s), Denies lethargy, Denies malaise, Denies night sweats, Denies snoring and Denies weight loss Eyes Denies blurry vision and Denies itchy eyes ENT Denies nasal congestion, Denies post nasal drip, Denies sinus pain, Denies sinus pressure and Denies other ( Thrush) Card Denies chest pain, Denies pedal edema, Denies dyspnea, Denies orthopnea and Denies paroxysmal nocturnal dyspnea Resp Denies cough, Denies hemoptysis, Denies excessive phlegm production, Denies dyspnea, Denies snoring and Denies wheezing GI Denies abdominal pain and Denies heartburn Musc Denies myalgias, Denies arthralgias and Denies joint swelling Skin/Breast Denies rash Neuro Denies memory loss and Denies seizure-like activity Psych Denies abnormal sleep pattern, Denies anxiety and Denies memory loss Endo Denies excessive sweating, Denies fatigue and Denies heat intolerance Abhishek/Lymph Denies easy bruising Aller/Immun Denies itchy eyes, Denies seasonal rhinorrhea and Denies wheezing Physical Exam Vital Signs: Last Vital Signs Pulse 85 08/11/23 09:24 BP 122/64 08/11/23 09:24 Pulse Ox 96 08/11/23 09:24 Oxygen Delivery Method Room Air 08/11/23 09:24 BMI result Body Mass Index 37.9 Const General: no acute distress and alert Nutritional Appearance: not obese Orientation/consciousness: Other orientation findings ( oriented) HEENT Head: Yes atraumatic Eyes General: appearance normal, both eyes and all related structures Sclerae: sclerae normal EOM: EOMs intact bilaterally Neck Neck: Yes supple Lymphatic: no lymphadenopathy noted Resp Effort & Inspection: normal respiratory effort and no use of accessory muscles Auscultation: clear to auscultation bilaterally Cardio Rate: regular rate Rhythm: regular rhythm Heart sounds: no gallops, no murmurs and no rubs Skin General skin exam: other ( warm) Extrem General: No clubbing, No cyanosis and No edema Assessment & Plan Assessment & Plan (1) Asthma-COPD overlap syndrome: Code(s): J44.9 - Chronic obstructive pulmonary disease, unspecified Plan: Well controlled on Dupixent, Spiriva, and albuterol MDI. Continue current regimen. (2) Environmental allergies: Code(s): Z91.09 - Other allergy status, other than to drugs and biological substances Plan: Well controlled on Dupixent. Continue current regimen. Coding Level of Care Code Est Pt Level 4 (14986) Diagnoses Asthma-COPD overlap syndrome J44.9 Environmental allergies Z91.09
== END 2023-08-11 09:39 | disposition home or self-care (01) ==
PROVIDERS: PCP Internal Medicine; Visit Provider Internal Medicine Pulmonary Disease
DX: J44.9 Chronic obstructive pulmonary disease, unspecified (principal); Z91.09 Other allergy status, other than to drugs and biological substances
CPT/HCPCS: 99214

== ENCOUNTER → 2023-08-11 09:11 | Outpatient (BNVA) | payer OTHER, SELFPAY | PROVIDERS: PCP Internal Medicine; Visit Provider Internal Medicine Pulmonary Disease | DX: J44.9 Chronic obstructive pulmonary disease, unspecified (principal); Z91.09 Other allergy status, other than to drugs and biological substances | CPT/HCPCS: 99212 ==

== ENCOUNTER 2023-08-28 10:00 | Outpatient (RCR) | payer OTHER, SELFPAY ==
--- NOTE | 2023-07-27 13:53 | MHC.PT.EP ---
[facility] [place] Office [place] Office [place] Office [address] Tim Sharpe [address] [phone] F: [phone] F: [phone] F: [phone] F: [phone] Physical Therapy Plan of Care Date of Evaluation: 07/27/23 Date of Surgery: N/A Diagnosis: sciatica left side (RL) Assessment: pt is a 67 y/o female presenting to physical therapy w/ referring diagnosis of low back pain radiating down right leg. Impairments include pain, decreased range of motion, decreased strength, impaired functional mobility, impaired postural awareness, and altered ambulation mechanics. pt is a good candidate for skilled PT due to age, potential remediation of impairments, typical disease/condition progression and prognosis, comorbidities, and motivation. pt would benefit from skilled PT intervention to provide a tailored strengthening and stretching exercise program, functional training, gait training, postural re-training, neuromuscular re-education, modalities as needed for pain, equipment safety demonstration. Frequency and Duration: The patient will be seen 2x/wk for 4 wks Short Term Goals: pt will be I w/ HEP to promote self-management of condition. pt will demo proper sitting w/ lumbar roll to promote neutral spine w/ seated ADLs. Nursing Home Goals: pt will improve B quad strength by at least 1 MMT grade to promote ease in stair navigation. pt will report a statistically significant improvement in self-reported outcome measure, Selene, to promote return to PLOF. Treatment Plan: Modalities to reduce pain, spasms and effusion. Manual therapy to restore motion and function. Therapeutic exercise to improve strength and flexibility. Neuromuscular re-education for posture and balance. Therapeutic activities to return to functional activities of daily living. Electronically signed by: Nancy Dalton PT, DPT Please sign and return to therapist. Thank you for your referral.
--- NOTE | 2023-08-28 13:39 | MHC.PT.DC ---
[facility] [place] Office [place] Office [place] Office [address] Tim Sharpe [address] [phone] F: [phone] F: [phone] F: [phone] F: [phone] Physical Therapy Discharge Report Diagnosis: sciatica left side (RL) Date of Surgery: N/A Date of Evaluation: 07/27/23 Date of Discharge: 08/28/23 Treatments to Date: 8 Cancellations to Date: 1 No Shows to Date: 0 Discharge Status: Improved Function Independent with HEP Discharge Summary: Per treatment note written on 08/28/23: Kaley arrived stating her R shoulder is sore from sleeping wrong. She however reports of feeling good in B LE. She has completed 8 PT visits and has made significant improvements. She is independent with all her HEP as well. She is therefore being d/c from PT today. I reviewed all exercises with her. No adverse response noted to any exercise. Electronically signed by: Nancy Dalton PT, DPT Please sign and return to therapist. Thank you for your referral.
== END 2023-08-28 13:39 | disposition home or self-care (01) ==
LOC: HO.PT 10:00
PROVIDERS: PCP Internal Medicine; Visit Provider Registered Nurse Emergency
DX: M53.3 Sacrococcygeal disorders, not elsewhere classified (principal); M54.16 Radiculopathy, lumbar region
CPT/HCPCS: 97110; 97140; 97162

== ENCOUNTER 2023-10-25 09:32 | Outpatient (REF) | payer OTHER, SELFPAY ==
--- NOTE | ~2023-10-25 | XR_ITS ---
EXAMINATION: XR CHEST CLINICAL INFORMATION: Cough COMPARISON: 12/05/2018 TECHNIQUE: 2 views of the chest were obtained. FINDINGS: There is questionable right upper lobe nodule projecting over posterior aspect of ribs #7, not seen on the prior study. Cardiomediastinal silhouette is normal. There is no pleural effusion. Osseous structures unremarkable. XR/XR chest 2V IMPRESSION: Questionable right upper lobe nodule new since previous study, correlate with CT scan.
== END 2023-10-25 09:33 | disposition home or self-care (01) ==
LOC: HO.XRAY 09:32
PROVIDERS: PCP Internal Medicine; Visit Provider Nurse Practitioner Family
DX: J44.89 Other specified chronic obstructive pulmonary disease (principal); Z91.09 Other allergy status, other than to drugs and biological substances; Z87.891 Personal history of nicotine dependence; Z79.899 Other long term (current) drug therapy
CPT/HCPCS: 71046; 99212

== ENCOUNTER 2023-10-25 09:32 | Outpatient (AMB) | payer OTHER, SELFPAY ==
[2023-10-25 09:40] VITALS: BP 126/72; PULSE 85; O2SAT 98; BMI 36.8
--- NOTE | 2023-10-25 09:40 | A.OFFVIS_ITS ---
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 Required: No Color Maker Formulator: Color Maker Formulator offered & declined Accompanied by: Self / Same As Patient Allergies amoxicillin [AMOXICILLIN] Allergy (Intermediate, Verified 10/25/23 09:44) RASH cefaclor [From CECLOR] Allergy (Intermediate, Verified 10/25/23 09:44) RASH tolmetin [From TOLECTIN] Allergy (Intermediate, Verified 10/25/23 09:44) RASH Sulfa (Sulfonamide Antibiotics) Allergy (Unknown, Verified 10/25/23 09:44) hives Medication List - Last Reconciled 10/25/23 by Wanda Panchal LPN acetaminophen (Tylenol) 650 mg PO QID PRN albuterol sulfate 90 mcg/actuation 2 puffs inhalation Q4-6H PRN citalopram 40 mg PO DAILY cyclobenzaprine 5 mg PO BID PRN Dupixent Pen (dupilumab) 300 mg (2 mL) subcut Q2W NS esomeprazole magnesium 40 mg PO DAILY ibuprofen 600 mg PO Q8H PRN sennosides (senna) 8.6 mg PO BID PRN HPI Cough, congestion x 1 month HPI Details Kaley is a pleasant 68 year old female, former approximately 30 pack- year smoker, quit 2014 followed for severe persistent asthma/COPD overlap syndrome and environmental allergies.? She has been using Dupixent with excellent control of her symptoms. She was previously prescribed albuterol MDI or Spiriva but rarely uses. Today she presents for an acute visit. She reports ongoing symptoms of productive cough, initially clear, and increased dyspnea for the past month. She denies wheezing, fever or chills. She did report her was sick with a strep infection, however she tested negative for strep as well as COVID and influenza. She was seen at urgent care on 10/02, prescribed doxycycline and reported minimal improvement. Over the last 3-4 days reports increased sputum production and now yellow to green in color as well as chest congestion. She has used her nebulizer and albuterol with relief, however does not use frequently as she develops tremors. [facility] Medical History Asthma Asthma-COPD overlap syndrome Gait disturbance History of ectopic History of gangrene Internal derangement of right knee Leg weakness Lumbar radiculopathy Morbidly obese Osteoarthritis of right knee Right knee meniscal tear Spondylosis of lumbosacral spine without myelopathy Surgical History History of appendectomy History of colonoscopy History of repair of hiatal hernia History of tonsillectomy Family History Father Mini stroke Vascular dementia Mother Breast cancer Sister Breast cancer Brother No problems noted. Brother No problems noted. Brother No problems noted. Sister No problems noted. Sister No problems noted. Sister No problems noted. 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 Cognitive needs: No Hearing needs: No Vision needs: No Review of Systems Const Denies excessive sweating, Denies fever(s), Denies headache(s) and Denies night sweats Eyes Denies dry eyes, Denies irritation and Denies itchy eyes ENT Reports Normal hearing present, Denies headache(s), Denies nasal congestion, Denies post nasal drip and Denies sore throat Card Denies chest pain, Denies chest pain at rest, Denies chest pain with activity, Denies claudication, Denies leg edema, Reports dyspnea on exertion, Denies orthopnea and Denies paroxysmal nocturnal dyspnea Resp Reports cough, Denies excessive phlegm production, Denies pain on inspiration, Denies pain with cough, Reports dyspnea on exertion, Denies stridor and Denies wheezing Musc Denies myalgias Neuro Reports Normal hearing present and Denies headache(s) Endo Denies excessive sweating Abhishek/Lymph Denies lymphadenopathy Aller/Immun Denies itchy eyes, Denies seasonal rhinorrhea and Denies wheezing Physical Exam Vital Signs: Last Vital Signs Pulse 85 10/25/23 09:40 BP 126/72 10/25/23 09:40 Pulse Ox 98 10/25/23 09:40 Oxygen Delivery Method Room Air 10/25/23 09:40 BMI result Body Mass Index 36.8 Const General: cooperative, healthy appearing, comfortable, no acute distress, well developed and alert Nutritional Appearance: obese Orientation/consciousness: patient oriented x3 Limitations: no limitations HEENT Head: Yes normal to inspection, Yes normocephalic and Yes atraumatic Ears: hearing grossly normal bilaterally and external ears normal Eyes General: appearance normal, both eyes and all related structures Eyelids: Yes eyelids normal Sclerae: sclerae normal EOM: EOMs intact bilaterally Neck Neck: Yes normal visual inspection and Yes no lymphadenopathy Lymphatic: no lymphadenopathy noted Chest Chest palpation & inspection: normal inspection of the chest Resp Effort & Inspection: normal respiratory effort, able to speak in complete sentences, no audible wheezes, Actively coughing Quality: wet, no stridor, not tachypneic, no tripod positioning and no use of accessory muscles Auscultation: rhonchi and wheezes (faint) expiratory wheezes Cardio Jugular venous distension: no JVD Rate: regular rate Rhythm: regular rhythm Skin Other: warm, dry General skin exam: no rashes or lesions noted Neuro General: patient oriented x3 Cranial nerves: Yes Normal hearing present Cognition (Neuro): normal cognition Gait exam (Neuro): Normal gait present Extrem General: Yes normal to inspection, Yes capillary refill normal, Yes no clubbing, cyanosis or edema and Yes no pedal edema Psych Appearance: grossly normal and well kempt Speech and movement: Normal speech and movement present and Clear speech present Affect: normal affect Attitude: cooperative Thought process: Normal thought process present Thought content: Normal thought content present Insight: Good insight present (Psych) Judgement: Good judgement present (Psych) Assessment & Plan Assessment & Plan (1) Asthma-COPD overlap syndrome: Code(s): J44.9 - Chronic obstructive pulmonary disease, unspecified (2) Environmental allergies: Code(s): Z91.09 - Other allergy status, other than to drugs and biological substances Plan Kaley presents with worsening productive cough for the past month despite doxycyline. Since patient with symptoms for 1 month, will send for CXR. Will treat bronchitic symptoms with levaquin, she reports allergies to amoxicillin and sulfa.She is aware if symptoms do not improve to call the office and if worsen seek emergent care. All questions were answered and patient is in agreement of plan. Will follow up with Dr. Turner for regularly scheduled appointment. Orders: Orders XR chest 2V Today R05.9 - Cough, unspecified Medications: New levofloxacin 750 mg PO DAILY 7 tabs 0RF prednisone 40 mg (2 x 20 mg) PO DAILY 10 tabs 0RF Refilled tiotropium bromide 2.5 mcg/actuation (Spiriva Respimat) 2 puffs PO DAILY 30 days 12 grams 3RF Coding Level of Care Code Est Pt Level 3 (88843) Diagnoses Asthma-COPD overlap syndrome J44.9 Environmental allergies Z91.09
== END 2023-10-25 10:20 | disposition home or self-care (01) ==
PROVIDERS: PCP Internal Medicine; Visit Provider Nurse Practitioner Family
DX: J44.9 Chronic obstructive pulmonary disease, unspecified (principal); Z91.09 Other allergy status, other than to drugs and biological substances
CPT/HCPCS: 99213

== ENCOUNTER 2023-11-07 09:13 | Outpatient (REF) | payer OTHER, SELFPAY | END 2023-11-07 09:14 | disposition home or self-care (01) | LOC: HO.MAMMO 09:13 | PROVIDERS: PCP Internal Medicine; Visit Provider Internal Medicine | DX: Z12.31 Encounter for screening mammogram for malignant neoplasm of breast (principal) | CPT/HCPCS: 77063; 77067 ==

== ENCOUNTER → 2023-11-07 09:30 | Outpatient (BNV) | payer OTHER, SELFPAY | PROVIDERS: PCP Internal Medicine; Visit Provider Radiology Diagnostic Radiology | DX: Z12.31 Encounter for screening mammogram for malignant neoplasm of breast (principal) | CPT/HCPCS: 77063; 77067 ==

== ENCOUNTER 2023-12-20 09:29 | Outpatient (REF) | payer OTHER, SELFPAY ==
--- NOTE | ~2023-12-20 | CT_ITS ---
EXAMINATION: CT CHEST WITHOUT CONTRAST CLINICAL INFORMATION: Follow-up pulmonary nodule COMPARISON: CT scan of chest on 08/02/2023 TECHNIQUE: Multidetector volumetric CT imaging of the chest was done. Axial MIP volume rendering provided. Sagittal and coronal reformatted images were obtained. This CT examination was performed using dose optimization techniques as appropriate, variously including the following: *Automated exposure control *Adjustment of mA and/or kV according to patient size (this includes techniques or standardized protocols for targeted exams where dose is matched to indication/reason for exam; i.e. extremities or head) *Use of iterative reconstruction technique DLP: 145.05 mGy-cm FINDINGS: LUNGS: The visualized lung parenchyma is clear. Stable 2.5 mm calcified granuloma is seen at the medial pleural border of right upper lobe apical segment, series 7 image #98. Stable 4.2 mm calcified granuloma is seen at the lateral pleural border of left lingular lobe superior segment, series 7 image #253. -Nodule #1 (Series 7, image 164): 2.9 mm solid nodule, posterior border of right upper lobe posterior segment, previously 3 mm. PLEURA: No pleural effusion or pneumothorax is seen. PERICARDIUM: No pericardial effusion is seen. MEDIASTINUM AND [place]: Inadequate evaluation of the mediastinal and hilar lymph nodes due to absence of IV contrast filling the surrounding blood vessels. TRACHEOBRONCHIAL TREE: Trachea and bilateral mainstem bronchi are patent. THORACIC AORTA: The thoracic aorta is normal in size and smoothly patent. CORONARY ARTERY CALCIFICATIONS: None PULMONARY ARTERIES: The main pulmonary arteries appear to be normal in size. CHEST WALL AND LOWER NECK: The subcutaneous and muscular chest wall are intact with no focal lesion. No abnormal mass lesion could be seen in the visualized lower neck. 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 No focal bone lesion diagnostic of metastatic disease could be seen in the thorax. VISUALIZED UPPER ABDOMEN: Bilateral adrenal glands are not enlarged. CT/CT chest wo IV con IMPRESSION: 1. Stable calcified granulomas in the right upper lobe and left lingular lobe. 2. Unchanged right upper lobe posterior segment micronodule, stable since earlier CT scan of chest on 03/08/2019. 3. 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 According to the UPDATED 2017 Fleischner Society recommendations, the advised follow-up imaging for nodules <6mm in the upper lobes is not necessarily required in low-risk patients. In high-risk patients with a nodule in the upper lobe and/or demonstrating suspicious morphology, an optional CT follow-up at 12 months may be obtained. If stable at 12 months, no further follow-up is recommended. The right upper lobe micronodule has been stable for almost 5 years. Fleischner guidelines were followed.
== END 2023-12-20 09:30 | disposition home or self-care (01) ==
LOC: HO.CT 09:29
PROVIDERS: PCP Internal Medicine; Visit Provider Nurse Practitioner Family
DX: R91.1 Solitary pulmonary nodule (principal)
CPT/HCPCS: 71250

== ENCOUNTER 2024-02-16 09:06 | Outpatient (AMB) | payer OTHER, SELFPAY ==
[2024-02-16 09:11] VITALS: BP 112/67; PULSE 80; O2SAT 96; BMI 36.4
--- NOTE | 2024-02-16 09:11 | MHC.OFFVIS ---
Vital Signs 02/16/24 09:11 Height 5 ft 1 in Weight 192 lb 14.472 oz BMI 36.4 BP 112/67 Blood Pressure Location Rt brachial Position Sitting Pulse 80 Pulse Source Doppler Pulse Oximetry (%) 96 Oxygen Delivery Method Room Air Intake Visit Reasons: copd Allergies amoxicillin [AMOXICILLIN] Allergy (Intermediate, Verified 02/16/24 09:16) RASH cefaclor [From CECLOR] Allergy (Intermediate, Verified 02/16/24 09:16) RASH tolmetin [From TOLECTIN] Allergy (Intermediate, Verified 02/16/24 09:16) RASH Sulfa (Sulfonamide Antibiotics) Allergy (Unknown, Verified 02/16/24 09:16) hives HPI HPI copd: Details: 68-year-old lady, former approximately 30 pack-year smoker, quit 2014 followed for severe persistent asthma/COPD overlap syndrome and environmental allergies.? She has been using Dupixent with excellent control of her symptoms. She rarely requires to use her albuterol MDI or Spiriva. She denies any recent exacerbations. Her follow-up CT scan from December of 2023 showed no worrisome pulmonary nodules. [facility] Medical History Asthma Asthma-COPD overlap syndrome Gait disturbance History of ectopic History of gangrene Internal derangement of right knee Leg weakness Lumbar radiculopathy Morbidly obese Osteoarthritis of right knee Right knee meniscal tear Spondylosis of lumbosacral spine without myelopathy Surgical History History of appendectomy History of colonoscopy History of repair of hiatal hernia History of tonsillectomy Family History Father Mini stroke Vascular dementia Mother Breast cancer Sister Breast cancer Brother No problems noted. Brother No problems noted. Brother No problems noted. Sister No problems noted. Sister No problems noted. Sister No problems noted. 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 Cognitive needs: No Hearing needs: No Vision needs: No Review of Systems Const Denies daytime sleepiness, Denies excessive sweating, Denies fatigue, Denies fever(s), Denies lethargy, Denies malaise, Denies night sweats, Denies snoring and Denies weight loss Eyes Denies blurry vision and Denies itchy eyes ENT Denies nasal congestion, Denies post nasal drip, Denies sinus pain, Denies sinus pressure and Denies other ( Thrush) Card Denies chest pain, Denies pedal edema, Denies dyspnea, Denies orthopnea and Denies paroxysmal nocturnal dyspnea Resp Denies cough, Denies hemoptysis, Denies excessive phlegm production, Denies dyspnea, Denies snoring and Denies wheezing GI Denies abdominal pain and Denies heartburn Musc Denies myalgias, Denies arthralgias and Denies joint swelling Skin/Breast Denies rash Neuro Denies memory loss and Denies seizure-like activity Psych Denies abnormal sleep pattern, Denies anxiety and Denies memory loss Endo Denies excessive sweating, Denies fatigue and Denies heat intolerance Abhishek/Lymph Denies easy bruising Aller/Immun Denies itchy eyes, Denies seasonal rhinorrhea and Denies wheezing Physical Exam Vital Signs: Last Vital Signs Pulse 80 02/16/24 09:11 BP 112/67 02/16/24 09:11 Pulse Ox 96 02/16/24 09:11 Oxygen Delivery Method Room Air 02/16/24 09:11 BMI result Body Mass Index 36.4 Const General: no acute distress and alert Nutritional Appearance: obese Orientation/consciousness: Other orientation findings ( oriented) HEENT Head: Yes atraumatic Eyes General: appearance normal, both eyes and all related structures Sclerae: sclerae normal EOM: EOMs intact bilaterally Neck Neck: Yes supple Lymphatic: no lymphadenopathy noted Resp Effort & Inspection: normal respiratory effort and no use of accessory muscles Auscultation: clear to auscultation bilaterally Cardio Rate: regular rate Rhythm: regular rhythm Heart sounds: no gallops, no murmurs and no rubs Skin General skin exam: other ( warm) Extrem General: No clubbing, No cyanosis and No edema Assessment & Plan Assessment & Plan (1) Asthma-COPD overlap syndrome: Code(s): Nova44.9 - Chronic obstructive pulmonary disease, unspecified Category: Medical Plan: well controlled on current regimen of Dupixent, Spiriva, and albuterol MDI. Continue current regimen. (2) Environmental allergies: Code(s): Z91.09 - Other allergy status, other than to drugs and biological substances Category: Medical Plan: Well controlled on Dupixent. Continue current regimen. (3) Personal history of nicotine dependence: Code(s): Z87.891 - Personal history of nicotine dependence Category: Medical Plan: Results of CT chest from December of 2023 reviewed, no worrisome pulmonary nodules. Continue yearly screening, next in December of 2024. Ordered. Orders: Orders CT lung screening 12/17/23 Z87.891 - Personal history of nicotine dependence Coding Level of Care Code Est Pt Level 4 (51574) Diagnoses Asthma-COPD overlap syndrome J44.9 Environmental allergies Z91.09 Personal history of nicotine dependence Z87.891
== END 2024-02-16 09:27 | disposition home or self-care (01) ==
PROVIDERS: PCP Internal Medicine; Visit Provider Internal Medicine Pulmonary Disease
DX: J44.9 Chronic obstructive pulmonary disease, unspecified (principal); Z91.09 Other allergy status, other than to drugs and biological substances; Z87.891 Personal history of nicotine dependence
CPT/HCPCS: 99214

== ENCOUNTER → 2024-02-16 09:06 | Outpatient (BNVA) | payer OTHER, SELFPAY | PROVIDERS: PCP Internal Medicine; Visit Provider Internal Medicine Pulmonary Disease | DX: J44.9 Chronic obstructive pulmonary disease, unspecified (principal); Z91.09 Other allergy status, other than to drugs and biological substances; Z87.891 Personal history of nicotine dependence | CPT/HCPCS: 99212 ==

== ENCOUNTER 2024-08-06 12:37 | Outpatient (REF) | payer OTHER, SELFPAY | END 2024-08-06 12:38 | disposition home or self-care (01) | LOC: HO.CT 12:37 | PROVIDERS: PCP Internal Medicine; Visit Provider Internal Medicine Pulmonary Disease | DX: Z12.2 Encounter for screening for malignant neoplasm of respiratory organs (principal); Z87.891 Personal history of nicotine dependence | CPT/HCPCS: 71271 ==

== ENCOUNTER → 2024-08-06 12:39 | Outpatient (BNV) | payer OTHER, SELFPAY | PROVIDERS: PCP Internal Medicine; Visit Provider Radiology Diagnostic Radiology | DX: Z87.891 Personal history of nicotine dependence (principal) | CPT/HCPCS: 71271 ==

== ENCOUNTER 2024-08-22 09:16 | Outpatient (AMB) | payer OTHER, SELFPAY ==
[2024-08-22 09:25] VITALS: BP 108/62; PULSE 81; O2SAT 96; BMI 36.1
--- NOTE | 2024-08-22 09:25 | A.OFFVIS_ITS ---
Vital Signs 08/22/24 09:25 Height 5 ft 1 in Weight 191 lb BMI 36.1 BP 108/62 Blood Pressure Location Rt brachial Position Sitting Pulse 81 Pulse Source Doppler Pulse Oximetry (%) 96 Oxygen Delivery Method Room Air Intake Visit Reasons: COPD Allergies amoxicillin [AMOXICILLIN] Allergy (Intermediate, Verified 08/22/24 09:27) RASH cefaclor [From CECLOR] Allergy (Intermediate, Verified 08/22/24 09:27) RASH tolmetin [From TOLECTIN] Allergy (Intermediate, Verified 08/22/24 09:27) RASH Sulfa (Sulfonamide Antibiotics) Allergy (Unknown, Verified 08/22/24 09:27) hives HPI HPI COPD: Details: 69-year-old lady, former approximately 30 pack-year smoker, quit 2014 followed for severe persistent asthma/COPD overlap syndrome and environmental allergies.? She has been using Dupixent with excellent control of her symptoms. She rarely requires to use her albuterol MDI or Spiriva. She denies any recent exacerbations. She denies recent exacerbations. She does have mild nonproductive seasonal cough. [facility] Medical History Asthma Asthma-COPD overlap syndrome Gait disturbance History of ectopic History of gangrene Internal derangement of right knee Leg weakness Lumbar radiculopathy Morbidly obese Osteoarthritis of right knee Right knee meniscal tear Spondylosis of lumbosacral spine without myelopathy Surgical History History of appendectomy History of colonoscopy History of repair of hiatal hernia History of tonsillectomy Family History Father Mini stroke Vascular dementia Mother Breast cancer Sister Breast cancer Brother No problems noted. Brother No problems noted. Brother No problems noted. Sister No problems noted. Sister No problems noted. Sister No problems noted. 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 Cognitive needs: No Hearing needs: No Vision needs: No Review of Systems Const Denies daytime sleepiness, Denies excessive sweating, Denies fatigue, Denies fever(s), Denies lethargy, Denies malaise, Denies night sweats, Denies snoring and Denies weight loss Eyes Denies blurry vision and Denies itchy eyes ENT Denies nasal congestion, Denies post nasal drip, Denies sinus pain, Denies sinus pressure and Denies other ( Thrush) Card Denies chest pain, Denies pedal edema, Denies dyspnea, Denies orthopnea and Denies paroxysmal nocturnal dyspnea Resp Denies cough, Denies hemoptysis, Denies excessive phlegm production, Denies dyspnea, Denies snoring and Denies wheezing GI Denies abdominal pain and Denies heartburn Musc Denies myalgias, Denies arthralgias and Denies joint swelling Skin/Breast Denies rash Neuro Denies memory loss and Denies seizure-like activity Psych Denies abnormal sleep pattern, Denies anxiety and Denies memory loss Endo Denies excessive sweating, Denies fatigue and Denies heat intolerance Abhishek/Lymph Denies easy bruising Aller/Immun Denies itchy eyes, Denies seasonal rhinorrhea and Denies wheezing Physical Exam Vital Signs: Last Vital Signs Pulse 81 08/22/24 09:25 BP 108/62 08/22/24 09:25 Pulse Ox 96 08/22/24 09:25 Oxygen Delivery Method Room Air 08/22/24 09:25 BMI result Body Mass Index 36.1 Const General: no acute distress and alert Nutritional Appearance: not obese Orientation/consciousness: Other orientation findings ( oriented) HEENT Head: Yes atraumatic Eyes General: appearance normal, both eyes and all related structures Sclerae: sclerae normal EOM: EOMs intact bilaterally Neck Neck: Yes supple Lymphatic: no lymphadenopathy noted Resp Effort & Inspection: normal respiratory effort and no use of accessory muscles Auscultation: clear to auscultation bilaterally Cardio Rate: regular rate Rhythm: regular rhythm Heart sounds: no gallops, no murmurs and no rubs Skin General skin exam: other ( warm) Extrem General: No clubbing, No cyanosis and No edema Assessment & Plan Assessment & Plan (1) Asthma-COPD overlap syndrome: Code(s): J44.9 - Chronic obstructive pulmonary disease, unspecified Category: Medical Plan: Well controlled on Dupixent and albuterol MDI. Continue current regimen. (2) Environmental allergies: Code(s): Z91.09 - Other allergy status, other than to drugs and biological substances Category: Medical Plan: Well controlled on Dupixent. Continue current regimen. (3) Personal history of nicotine dependence: Code(s): Z87.891 - Personal history of nicotine dependence Category: Medical Plan: Lung cancer screening CT chest is pending. Orders: Orders CT lung screening 07/23/25 Z87.891 - Personal history of nicotine dependence Coding Level of Care Code Est Pt Level 4 (96536) Diagnoses Asthma-COPD overlap syndrome J44.9 Environmental allergies Z91.09 Personal history of nicotine dependence Z87.891
== END 2024-08-22 09:39 | disposition home or self-care (01) ==
PROVIDERS: PCP Internal Medicine; Visit Provider Internal Medicine Pulmonary Disease
DX: J44.9 Chronic obstructive pulmonary disease, unspecified (principal); Z91.09 Other allergy status, other than to drugs and biological substances; Z87.891 Personal history of nicotine dependence
CPT/HCPCS: 99214

== ENCOUNTER → 2024-08-22 09:16 | Outpatient (BNVA) | payer OTHER, SELFPAY | PROVIDERS: PCP Internal Medicine; Visit Provider Internal Medicine Pulmonary Disease | DX: J44.9 Chronic obstructive pulmonary disease, unspecified (principal); Z91.09 Other allergy status, other than to drugs and biological substances; Z87.891 Personal history of nicotine dependence | CPT/HCPCS: 99212 ==

== ENCOUNTER 2024-11-12 09:04 | Outpatient (REF) | payer OTHER, SELFPAY ==
--- NOTE | ~2024-11-12 | MM_ITS ---
EXAMINATION: MM SCREENING DIGITAL BREAST TOMOSYNTHESIS, BILATERAL CLINICAL INFORMATION: Screening. Asymptomatic. COMPARISON: Mammography: Comparison is made with available priors TECHNIQUE: Digital breast mammography with tomosynthesis is performed in both the craniocaudal and mediolateral oblique views along with computer-aided detection (CAD). FINDINGS: The breasts are heterogeneously dense, which may obscure small masses (ACR BI-RADS breast composition Category c). Right: Developing focal asymmetry upper outer breast posterior depth. No suspicious calcifications or other abnormal findings. Focal asymmetry lower inner breast middle depth. Left: There are no significant masses, abnormal calcifications, or other abnormalities. MM/MM tomosynthesis screening BI IMPRESSION: Additional imaging is recommended ASSESSMENT: BI-RADS BI-RADS 0 - Incomplete: Needs additional Imaging. RECOMMENDATION: 1. Additional views of the right breast. 2. Targeted ultrasound if warranted after review of the additional views. 3. Radiology department staff will contact the patient for additional imaging. Additional Imaging required This examination should not preclude the clinical evaluation of a suspicious palpable abnormality. This patient's information was entered into a reminder system with a target due date for their next mammogram. Electronically signed by: Carrie Landis DO 11/14/2024 11:39 AM MARY
--- OUTSIDE RECORDS SUMMARY | 2024-11-12 10:01 | XMS_ITS | Continuity of Care Document ---
Author Name [facility] Organization [facility] Care Team Providers Care Assembler Unit Name Role Phone 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 It does not include entries that were removed or entered in error. 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 Nov 15, 1999 Entered By: SABINE BURTON MD Comment: since late 1998, pigmented-> green, carroll, blackNov 15, 1999 Entered By: SABINE BURTON MD Comment: normal prolactin DOROTHY HYPERLIPIDEMIA NEC/NOS Active Condition DOROTHY Infertility, Female Active Condition Nov 15, 1999 Entered By: SABINE BURTON MD Comment: History of ectopic x 2M1999 Entered By: SABINE BURTON MD Comment: salpingectomy, tubal reconstructive surg DOROTHY Ingrown toenail Active Condition [place] [facility] Rectal Bleeding Active Condition Nov 15, 1999 Entered By: SABINE BURTON MD Comment: GI consult pendingNov 25, 2002 Entered By: LURDES ANTHONY RN Comment: consult for flex-sig pending DOROTHY Allergies, Adverse Reactions, Alerts Combined list of allergies from Department of Defense and Veterans Affairs facilities. It does not include entries that were removed or entered in error. Substance Category Reaction Severity Reaction type Status Date Reported Comments Source AMOXICILLIN Propensity to adverse reactions to drug (finding) active 11/15/1999 [facility] CECLOR Propensity to adverse reactions to drug (finding) active 11/15/1999 [facility] TOLECTIN Propensity to adverse reactions to drug (finding) active 11/15/1999 [facility] Immunizations Combined list of available immunizations from the Department of Defense and Veterans Affairs facilities. Immunization Series Date Given Administered By Site Reaction Lot Number CVX Code Drug Public Relations Specialist Status Comments Source PNEUMOCOCCAL, UNSPECIFIED FORMULATION 2001 109 complet ed Site: Right Deltoid [facility] FLU,3 YRS (HISTORICAL) 2000 88 complet ed [facility] Social History Combined list of available smoking, tobacco, and other social history from Department of Defense and Veterans Affairs facilities. Social History Type Response Date Comment Sourc e Tobacco smoking status GAIS HISTORY OF SMOKING 05/21/2002 quit mid 1980s [place] History of tobacco use QUIT TOBACCO USE > 7 YEARS AGO 11/20/2001 quit 1985 [place] History of tobacco use NON-TOBACCO USER 05/03/2001 QUIT 1985 [place] History of tobacco use HISTORY OF SMOKING 11/29/2000 QUIT APPROXIMATELY 1 5-20 YEARS AGO [place] This section is an empty social history section. DoD
== END 2024-11-12 09:05 | disposition home or self-care (01) ==
LOC: HO.MAMMO 09:04
PROVIDERS: PCP Internal Medicine; Visit Provider Internal Medicine
DX: Z12.31 Encounter for screening mammogram for malignant neoplasm of breast (principal)
CPT/HCPCS: 77063; 77067

== ENCOUNTER → 2024-11-12 09:30 | Outpatient (BNV) | payer OTHER, SELFPAY | PROVIDERS: PCP Internal Medicine; Visit Provider Internal Medicine | DX: Z12.31 Encounter for screening mammogram for malignant neoplasm of breast (principal) | CPT/HCPCS: 77063; 77067 ==

== ENCOUNTER 2024-12-11 10:44 | Outpatient (REF) | payer OTHER, SELFPAY ==
--- NOTE | ~2024-12-11 | US_ITS ---
EXAMINATION: MM DIAGNOSTIC DIGITAL BREAST TOMOSYNTHESIS, RIGHT Limited right breast ultrasound. CLINICAL INFORMATION: Call back from screening for 2 focal asymmetries in the right breast. COMPARISON: Mammography: Priors on PACS. TECHNIQUE: Digital breast tomosynthesis is performed in both the craniocaudal and mediolateral oblique views along with computer-aided detection (CAD). Synthesized 2D images are generated from the tomosynthesis. FINDINGS: The breasts are heterogeneously dense, which may obscure small masses (ACR BI-RADS breast composition Category c). There is a developing focal asymmetry in the upper outer breast posterior depth which persists on additional imaging projections. There is a developing focal asymmetry in the lower inner breast middle depth which persists on additional imaging projections. No suspicious calcifications or other abnormal findings. Targeted color Doppler ultrasound at 11:00 8 cm from nipple demonstrates a hypoechoic irregular taller than wide solid mass measuring 5 x 5 x 5 mm which correlates with the upper outer breast focal asymmetry on mammography. Targeted color Doppler ultrasound scanning from 3-8 o'clock demonstrates normal fibronodular breast tissue there is an area at 6:00 3 cm from the nipple of multiple simple to minimally complicated adjacent cysts with intervening normal breast tissue is a possible correlate for the focal asymmetry in the lower inner breast. US/US breast RT limited mamm only IMPRESSION: 1. Developing focal asymmetry in the upper-outer breast with a ultrasound correlate solid mass at 11:00 8 cm from the nipple. Recommend ultrasound-guided core needle biopsy at this time. The findings and recommendations were discussed with the patient the procedure will be scheduled. 2. Developing focal asymmetry in the lower inner breast with questionable correlate on ultrasound area of multiple simple to minimally complicated adjacent cysts with normal intervening breast tissue at 6:00 3 cm from nipple. Management for this area will be pending biopsy of the above mass to include at least a six-month follow-up mammogram and ultrasound. ASSESSMENT: BI-RADS BI-RADS 4 - Suspicious finding RECOMMENDATION: Biopsy recommended Results were provided to the patient at time of visit by the technologist. This patient's information was entered into a reminder system with a target due date for their next mammogram. Electronically signed by: Carrie Landis DO 12/11/2024 12:40 PM EDT
--- OUTSIDE RECORDS SUMMARY | 2024-12-11 12:48 | XMS_ITS | Continuity of Care Document ---
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 Nov 15, 1999 Entered By: SABINE BURTON MD Comment: since late 1998, pigmented-> green, carroll, blackNov 15, 1999 Entered By: SABINE BRUTON MD Comment: normal prolactin DOROTHY HYPERLIPIDEMIA NEC/NOS [...] adverse reactions to drug (finding) active 11/15/1999 [facility] CECLOR Propensity to adverse reactions to drug (finding) active 11/15/1999 [facility] TOLECTIN Propensity to adverse reactions to drug (finding) active 11/15/1999 [facility] Immunizations Combined list of available immunizations from the Department of Defense and Veterans Affairs facilities. 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 Social History Type Response Date Comment Sourc e Tobacco smoking status MEIS HISTORY OF SMOKING 05/21/2002 quit mid 1980s [place] History of tobacco use QUIT TOBACCO USE > 7 YEARS AGO 11/20/2001 quit 1985 [place] History of tobacco use NON-TOBACCO USER 05/03/2001 QUIT 1985 [place] History of tobacco use HISTORY OF SMOKING 11/29/2000 QUIT APPROXIMATELY 1 5-20 YEARS AGO [place]
== END 2024-12-11 10:45 | disposition home or self-care (01) ==
LOC: HO.MAMMO 10:44
PROVIDERS: PCP Internal Medicine; Visit Provider Internal Medicine
DX: R92.8 Other abnormal and inconclusive findings on diagnostic imaging of breast (principal)
CPT/HCPCS: 76642; 77061; 77065

== ENCOUNTER → 2024-12-11 11:00 | Outpatient (BNV) | payer OTHER, SELFPAY | PROVIDERS: PCP Internal Medicine; Visit Provider Internal Medicine | DX: R92.8 Other abnormal and inconclusive findings on diagnostic imaging of breast (principal) | CPT/HCPCS: 76642; 77061; 77065 ==

== ENCOUNTER 2025-01-15 08:02 | Outpatient (AMB) | payer OTHER, SELFPAY ==
--- OUTSIDE RECORDS SUMMARY | 2025-01-15 08:08 | XMS_ITS | Continuity of Care Document ---
Author Name [facility] Organization [facility] Care Team Providers Care Binder Stripper Machine Name Role Phone [facility] Unavailable Unavailable Problems Combined list of problems [...] Comment: Mo diagnosed in her 60s, age 71Mar 1999 Entered By: SABINE BURTON MD Comment: [facility] 09/15/99 [employer] Entered By: SABINE BURTON MD [...] adverse reactions to drug (finding) active 11/15/1999 [facility] CECLOR Propensity to adverse reactions to drug (finding) active 11/15/1999 [facility] TOLECTIN Propensity to adverse reactions to drug (finding) active 11/15/1999 [facility] Immunizations Combined list of available immunizations from the Department of Defense and Veterans Affairs facilities. 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 Social History Type Response Date Comment Sourc e Tobacco smoking status NDIS HISTORY OF SMOKING 05/21/2002 quit mid 1980s [place] History of tobacco use QUIT TOBACCO USE > 7 YEARS AGO 11/20/2001 quit 1985 [place] History of tobacco use NON-TOBACCO USER 05/03/2001 QUIT 1985 [place] History of tobacco use HISTORY OF SMOKING 11/29/2000 QUIT APPROXIMATELY 1 5-20 YEARS AGO [place] This section is an empty social history section. DoD
--- NOTE | 2025-01-15 08:19 | A.OFFVIS_ITS ---
Vital Signs 01/15/25 08:29 Height 5 ft 1 in Weight 196 lb BMI 37.0 BP 121/59 L Blood Pressure Location Rt brachial Position Sitting Pulse 66 Intake Visit Reasons: Lt B usbx 11 o'clock Intake Note: Patient here Rt br US guided bx 11o'clock mass. Patient c/o: sometimes feels lump and pain on Rt br. Reports mother, maternal aunt and sister w/ hx of breast CA. RT US and Mammogram: 12-11-2024 Computer Networking Instructor Adjunct Required: No Accompanied by: Self / Same As Patient Allergies amoxicillin [AMOXICILLIN] Allergy (Intermediate, Verified 01/15/25 08:26) RASH cefaclor [From CECLOR] Allergy (Intermediate, Verified 01/15/25 08:26) RASH tolmetin [From TOLECTIN] Allergy (Intermediate, Verified 01/15/25 08:26) RASH Sulfa (Sulfonamide Antibiotics) Allergy (Unknown, Verified 01/15/25 08:26) hives Medication List - Last Reconciled 01/15/25 by Jake Weiss MD acetaminophen (Tylenol) 650 mg PO QID PRN albuterol sulfate 90 mcg/actuation 2 puffs inhalation Q4-6H PRN citalopram 40 mg PO DAILY cyclobenzaprine 5 mg PO BID PRN Dupixent Pen (dupilumab) 300 mg (2 mL) subcut Q2W NS esomeprazole magnesium 40 mg PO DAILY ibuprofen 600 mg PO Q8H PRN sennosides (senna) 8.6 mg PO BID PRN tiotropium bromide 2.5 mcg/actuation (Spiriva Respimat) 2 puffs PO DAILY 30 days HPI HPI Lt B usbx 11 o'clock: Details: 69-year-old female 69 year female referred for a right breast mass appeared she had undergone screening mammogram last month showing a developing focal asymmetry in the lower inner breast. She therefore had he had ultrasound showing this 5 x 5 x 5 mm solid mass, irregular, at the 11 o'clock position of the right breast. There was another area at the 6 o'clock position with complicated adjacent cysts An ultrasound biopsy was recommended for the mass at 11 o'clock position. It was recommended to wait for the results of this biopsy prior to deciding on management of this lesion at the 6 o'clock position The patient denies any palpable mass Her menarche was at the age of 11. She had 2 pregnancies but she says these were both tubal. She never had any uterine therefore. She says that her 1st tubal was in her 20s She had menopause in her mid 40s She does describe. She says her mother had breast cancer in her 60s. A sister had breast cancer in her 50s. She says her sister had genetic testing which was negative for mutations. She says she used to smoke heavily but quit many years ago. [facility] Medical History (Updated 01/15/25 @ 08:54 by Jake Weiss MD) Family history of breast cancer Breast mass, right Left breast mass Morbidly obese Osteoarthritis of right knee Right knee meniscal tear Spondylosis of lumbosacral spine without myelopathy Asthma Internal derangement of right knee Asthma-COPD overlap syndrome Gait disturbance Leg weakness Lumbar radiculopathy History of gangrene History of ectopic Surgical History History of repair of hiatal hernia History of colonoscopy History of appendectomy History of tonsillectomy Family History (Updated 01/15/25 @ 08:31 by WAGNER Cazares) Father Mini stroke Vascular dementia Mother Breast cancer Sister Breast cancer Brother No problems noted. Brother No problems noted. Brother No problems noted. Sister No problems noted. Sister No problems noted. Sister No problems noted. 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 Cognitive needs: No Hearing needs: No Vision needs: No Review of Systems Const Denies chills and Denies fever(s) Card Denies chest pain, Denies dyspnea and Reports dyspnea on exertion Resp Denies cough, Denies dyspnea and Reports dyspnea on exertion GI Denies hematochezia and Denies change in bowel habits Denies hematuria Musc Denies back pain and Denies limited range of motion Neuro Denies focal weakness and Denies convulsions Psych Denies depression and Denies mood swings Physical Exam Vital Signs: Last Vital Signs Pulse 66 01/15/25 08:29 BP 121/59 L 01/15/25 08:29 BMI result Body Mass Index 37.0 Const Other: Morbidly obese General: comfortable and no acute distress Orientation/consciousness: patient oriented x3 Neck Neck: Yes no lymphadenopathy Chest Other: Large pendulous breasts, no palpable breast masses, no axillary lymphadenopathy, no nipple or skin changes Resp Auscultation: clear to auscultation bilaterally Cardio Rhythm: regular rhythm GI Palpation (GI): Soft to palpation, nontender and no guarding Neuro General: patient oriented x3 Assessment & Plan Assessment & Plan (1) Breast mass, right: Code(s): N63.10 - Unspecified lump in the right breast, unspecified quadrant Category: Medical Plan: She has this right breast mass at the 11 o'clock position as described above. An ultrasound biopsy had been recommended. I explained to her the technique of this procedure. I will see her again in the office next week to discuss the path report Had another area with focal asymmetry at the 3 o'clock position. As per the radiologist, further management of this will depend on this report for the lesion at the 11 o'clock position. (2) Family history of breast cancer: Code(s): Z80.3 - Family history of malignant neoplasm of breast Category: Medical Plan: She has multiple family members breast cancer. She says that her maternal grandmother, her mother as well as a sister all had breast cancers. She we will qualify for genetic testing and I offered this to her. I explained to her the implications of this test to herself and her family She says she is inserted so we will schedule her for genetic counseling and genetic testing in the office. Orders: Orders US breast ndl core biopsy RT 01/14/25 N63.10 - Unspecified lump in the right breast, unspecified quadrant Coding Level of Care Code New Pt Level 4 (37973) Diagnoses Breast mass, right N63.10 Family history of breast cancer Z80.3
[2025-01-15 08:29] VITALS: BP 121/59; PULSE 66; BMI 37.0
== END 2025-01-15 09:00 | disposition home or self-care (01) ==
LOC: HO.HGS 08:03
PROVIDERS: PCP Internal Medicine; Visit Provider Surgery
DX: N63.10 Unspecified lump in the right breast, unspecified quadrant (principal); Z80.3 Family history of malignant neoplasm of breast
CPT/HCPCS: 99204

== ENCOUNTER → 2025-01-15 09:00 | Outpatient (BNV) | payer OTHER, SELFPAY | PROVIDERS: PCP Internal Medicine; Visit Provider Internal Medicine | DX: N63.11 Unspecified lump in the right breast, upper outer quadrant (principal) | CPT/HCPCS: 19083; 77065 ==

== ENCOUNTER 2025-01-15 09:01 | Outpatient (REF) | payer OTHER, SELFPAY ==
--- NOTE | ~2025-01-15 | MM_ITS ---
PROCEDURE: ULTRASOUND-GUIDED RIGHT BREAST BIOPSY CLINICAL INFORMATION: Solid mass at 11:00 in the right breast. Patient also has a recommendation for a six-month follow-up right breast mammogram and ultrasound. COMPARISON: Priors on PACS. TECHNIQUE: The details of the procedure, as well as the risks, benefits, and alternatives to the procedure were explained to the patient in detail and all of her questions were answered, after which, written informed consent was obtained. PROCEDURE: Prior to the procedure, sonography revealed a solid mass at 11:00 8 cm from the nipple. A time-out was performed, the lesion intended for biopsy was targeted and the skin of the right breast was then prepped and draped in the usual sterile fashion. Using sonographic guidance, sterile technique, and 1% lidocaine without epinephrine for local anesthesia, a total of 6 cores were obtained through the targeted area with a 14-gauge biopsy device. At the completion of tissue sampling, a single butterfly metallic clip was deposited at the biopsy site. An appropriate sample was obtained. The postprocedure 2-view direct digital mammogram reveals satisfactory positioning of the biopsy clip. The patient tolerated the procedure well and, after assuring adequate hemostasis, was discharged in good condition after reviewing postbiopsy breast care instructions. Final pathology results are pending. MM/MM tomosynthesis diagnostic RT IMPRESSION: 1. Uncomplicated sonographically-guided core biopsy of the right breast. The 2-view direct digital postprocedure mammogram reveals satisfactory positioning of the biopsy clip. 2. Final pathology results are pending. A separate report with final recommendations will be issued once these results are made available. Electronically signed by: Carrie Landis DO 01/15/2025 11:37 AM EDT
--- OUTSIDE RECORDS SUMMARY | 2025-01-15 09:29 | XMS_ITS | Continuity of Care Document ---
Author Name [facility] Organization [facility] Care Team Providers Care String Laster Name Role Phone [facility] Unavailable Unavailable Problems Combined list of problems [...] By: SABINE BURTON MD Comment: [facility] 09/[facility] [employer] Entered By: SABINE BURTON MD [...] adverse reactions to drug (finding) active 11/15/1999 [facility] CECLOR Propensity to adverse reactions to drug (finding) active 11/15/1999 [facility] TOLECTIN Propensity to adverse reactions to drug (finding) active 11/15/1999 [facility] Immunizations Combined list of available immunizations from the Department of Defense and Veterans Affairs facilities. Immunization Series Date Given Administered By Site Reaction Lot Number CVX Code Drug Shooting Gallery Operator Status Comments Source PNEUMOCOCCAL, UNSPECIFIED FORMULATION 2001 109 complet ed Site: Right Deltoid [facility] FLU,3 YRS (HISTORICAL) 2000 88 complet ed [facility] Social History Combined list of available smoking, tobacco, and other social history from Department of Defense and Veterans Affairs facilities. Social History Type Response Date Comment Sourc e Tobacco smoking status PAIS HISTORY OF SMOKING 05/21/2002 quit mid 1980s [place] History of tobacco use QUIT TOBACCO USE > 7 YEARS AGO 11/20/2001 quit 1985 [place] History of tobacco use NON-TOBACCO USER 05/03/2001 QUIT 1985 [place] History of tobacco use HISTORY OF SMOKING 11/29/2000 QUIT APPROXIMATELY 1 5-20 YEARS AGO [place] This section is an empty social history section. DoD
[2025-01-15] MEDS: Sodium Bicarbonate 8.4% 50 MEQ/50 ML VIAL SUBCUT (10:08)
[2025-01-15] MEDS: Lidocaine HCl 1 % 20 ML VIAL 9 ML SUBCUT (10:09)
== END 2025-01-15 09:02 | disposition home or self-care (01) ==
LOC: HO.MAMMO 09:01
PROVIDERS: PCP Internal Medicine; Visit Provider Surgery
DX: N63.11 Unspecified lump in the right breast, upper outer quadrant (principal); D05.11 Intraductal carcinoma in situ of right breast; N64.89 Other specified disorders of breast; Z80.3 Family history of malignant neoplasm of breast
CPT/HCPCS: 19083; 77061; 77065; 88305; 88341; 88342; 88360; 99202; A4648; J2003

== ENCOUNTER 2025-01-22 14:23 | Outpatient (AMB) | payer OTHER, SELFPAY ==
--- NOTE | 2025-01-22 14:27 | MHC.OFFVIS ---
Vital Signs 01/22/25 14:35 Height 5 ft 1 in Weight 194 lb BMI 36.7 BP 165/70 H Blood Pressure Location Lt brachial Position Sitting Pulse 74 Intake Visit Reasons: s/p Lt B usbx 11 o'clock Intake Note: Patient is seen in office for ultrasound biopsy results, left breast mass. 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 Accompanied by: Self / Same As Patient Allergies amoxicillin [AMOXICILLIN] Allergy (Intermediate, Verified 01/22/25 14:35) RASH cefaclor [From CECLOR] Allergy (Intermediate, Verified 01/22/25 14:35) RASH tolmetin [From TOLECTIN] Allergy (Intermediate, Verified 01/22/25 14:35) RASH Sulfa (Sulfonamide Antibiotics) Allergy (Unknown, Verified 01/22/25 14:35) hives Medication List - Last Reconciled 01/22/25 by Jake Weiss MD acetaminophen (Tylenol) 650 mg PO QID PRN albuterol sulfate 90 mcg/actuation 2 puffs inhalation Q4-6H PRN citalopram 40 mg PO DAILY cyclobenzaprine 5 mg PO BID PRN Dupixent Pen (dupilumab) 300 mg (2 mL) subcut Q2W NS esomeprazole magnesium 40 mg PO DAILY ibuprofen 600 mg PO Q8H PRN sennosides (senna) 8.6 mg PO BID PRN tiotropium bromide 2.5 mcg/actuation (Spiriva Respimat) 2 puffs PO DAILY 30 days HPI HPI s/p Lt B usbx 11 o'clock: Details: She had an ultrasound biopsy of a right breast mass last January 15, 2025. She says she tolerated procedure well. She says she did not develop any hematoma in the area. [facility] Medical History Family history of breast cancer Breast mass, right Left breast mass Morbidly obese Osteoarthritis of right knee Right knee meniscal tear Spondylosis of lumbosacral spine without myelopathy Asthma Internal derangement of right knee Asthma-COPD overlap syndrome Gait disturbance Leg weakness Lumbar radiculopathy History of gangrene History of ectopic Surgical History History of repair of hiatal hernia History of colonoscopy History of appendectomy History of tonsillectomy Family History Father Mini stroke Vascular dementia Mother Breast cancer Sister Breast cancer Brother No problems noted. Brother No problems noted. Brother No problems noted. Sister No problems noted. Sister No problems noted. Sister No problems noted. 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 Cognitive needs: No Hearing needs: No Vision needs: No Review of Systems Const Denies chills and Denies fever(s) Card Denies chest pain, Denies dyspnea and Denies dyspnea on exertion Resp Denies cough, Denies dyspnea and Denies dyspnea on exertion GI Denies hematochezia and Denies change in bowel habits Denies hematuria Musc Denies back pain and Denies limited range of motion Neuro Denies focal weakness and Denies convulsions Psych Denies depression and Denies mood swings Physical Exam Vital Signs: Last Vital Signs Pulse 74 01/22/25 14:35 BP 165/70 H 01/22/25 14:35 BMI result Body Mass Index 36.7 Const General: comfortable and no acute distress Chest Other: Large pendulous breasts, no hematoma on the biopsy site on the right Resp Effort & Inspection: normal respiratory effort Assessment & Plan Assessment & Plan (1) Breast mass, right: Code(s): N63.10 - Unspecified lump in the right breast, unspecified quadrant Category: Medical Plan: Unfortunately, her biopsy of the lesion at the 11:00 position of the right breast shows an invasive ductal carcinoma, ERPR negative, HER2 negative. She therefore has a triple negative tumor. There was another area on the inferior aspect of the right breast that she feels should be biopsied. This will be done as a stereotactic biopsy. I have ordered this for the patient and I will see her in the office after the biopsy is done for the 2nd lesion. I had a long discussion with the patient and her Vinay with regards to the above. Her Vinay is undergoing meant with a an oncologist in [place] for his polycythemia and they stated that they would like to be referred to the same oncology practice down the line for Kaley. Orders: Orders MM stereotactic biopsy RT Today N63.10 - Unspecified lump in the right breast, unspecified quadrant Coding Level of Care Code Est Pt Level 3 (53934) Diagnoses Breast mass, right N63.10
--- OUTSIDE RECORDS SUMMARY | 2025-01-22 14:28 | XMS_ITS | Continuity of Care Document ---
Author Name [facility] Organization [facility] Care Team Providers Care Cigarette Lighter Repairer Name Role Phone [facility] Unavailable Unavailable Problems Combined list of problems [...] By: SABINE BURTON MD Comment: [facility] 09/15/99 [employer] Entered By: SABINE BURTON MD [...] adverse reactions to drug (finding) active 11/15/1999 [facility] CECLOR Propensity to adverse reactions to drug (finding) active 11/15/1999 [facility] TOLECTIN Propensity to adverse reactions to drug (finding) active 11/15/1999 [facility] Immunizations Combined list of available immunizations from the Department of Defense and Veterans Affairs facilities. Immunization Series Date Given Administered By Site Reaction Lot Number CVX Code Drug Guardian Family Member Status Comments Source PNEUMOCOCCAL, UNSPECIFIED FORMULATION 2001 109 complet ed Site: Right Deltoid [facility] FLU,3 YRS (HISTORICAL) 2000 88 complet ed [facility] Social History Combined list of available smoking, tobacco, and other social history from Department of Defense and Veterans Affairs facilities. Social History Type Response Date Comment Sourc e Tobacco smoking status PRIS HISTORY OF SMOKING 05/21/2002 quit mid 1980s [place] History of tobacco use QUIT TOBACCO USE > 7 YEARS AGO 11/20/2001 quit 1985 [place] History of tobacco use NON-TOBACCO USER 05/03/2001 QUIT 1985 [place] History of tobacco use HISTORY OF SMOKING 11/29/2000 QUIT APPROXIMATELY 1 5-20 YEARS AGO [place] This section is an empty social history section. DoD
[2025-01-22 14:35] VITALS: BP 165/70; PULSE 74; BMI 36.7
== END 2025-01-22 15:07 | disposition home or self-care (01) ==
LOC: HO.HGS 14:23
PROVIDERS: PCP Internal Medicine; Visit Provider Surgery
DX: N63.10 Unspecified lump in the right breast, unspecified quadrant (principal)
CPT/HCPCS: 99213

== ENCOUNTER → 2025-01-22 14:23 | Outpatient (BNVA) | payer OTHER, SELFPAY | PROVIDERS: PCP Internal Medicine; Visit Provider Surgery | DX: C50.411 Malignant neoplasm of upper-outer quadrant of right female breast (principal); Z17.1 Estrogen receptor negative status [ER-]; Z17.32 Human epidermal growth factor receptor 2 negative status | CPT/HCPCS: 99212 ==

== ENCOUNTER 2025-01-29 08:44 | Outpatient (REF) | payer OTHER, SELFPAY ==
--- NOTE | ~2025-01-29 | US_ITS ---
EXAMINATION: US DIAGNOSTIC ULTRASOUND BREAST, BILATERAL CLINICAL INFORMATION: Patient describes bilateral reddish brownish-black nipple discharge.. Recently diagnosed right breast invasive ductal carcinoma. COMPARISON: Comparison is made with relevant prior imaging. TECHNIQUE: Ultrasound of the breast is performed with real-time jiménez scale imaging and color Doppler. FINDINGS: Targeted color Doppler ultrasound scanning bilateral retroareolar regions demonstrates normal fibroglandular breast tissue. There is no sonographic abnormality. There is no focal suspicious finding. There is no solid mass, architectural abnormality, duct ectasia, or edema in the soft tissue planes. Results are discussed with the patient at time of visit. US/US breast BI limited mamm only IMPRESSION: No sonographic abnormality bilateral retroareolar regions to account for the patient's bilateral nipple discharge reddish brownish-black. Recent mammography in the retroareolar regions was without abnormality. Recommend breast MRI for further evaluation. Breast MRI needs to be ordered by the patient's providing clinician. ASSESSMENT: BI-RADS 1: Negative RECOMMENDATION: breast surgical consultation for excision and further management known right breast malignancy. Recommend breast MRI for bilateral bloody nipple discharge. This patient's information was entered into a reminder system with a target due date for their next mammogram. Electronically signed by: Carrie Landis DO 01/29/2025 11:30 AM EDT
--- NOTE | ~2025-01-29 | MM_ITS ---
EXAMINATION: STEREOTACTICALLY-GUIDED RIGHT BREAST BIOPSY CLINICAL INFORMATION: Recent biopsy proven invasive ductal carcinoma and ductal carcinoma in situ of the right breast. Here for stereotactic core needle biopsy of a focal asymmetry which was developing in the lower inner right breast. Additionally to the patient describes bilateral ground glass and blood-tinged retroareolar nipple discharge. Ultrasound performed today bilateral retroareolar regions was benign therefore breast MRI should be considered for further evaluation. COMPARISON: Priors on PACS. INFORMED CONSENT: After the details of the procedure, as well as the risks (including, but not limited to, bleeding, hematoma formation, and infection), benefits and alternatives (including doing nothing, short-interval follow up, and surgery) to the procedure were explained to the patient in detail and all of her questions were answered, informed written consent was obtained. TECHNIQUE/FINDINGS: A timeout was performed. The lesion intended for biopsy was identified stereotactically and targeted. The skin of the right breast was then cleansed with sterile solution. Using stereotactic guidance, aseptic technique, and 1% lidocaine with and without epinephrine for local anesthesia, a total of 12 cores were obtained through the targeted area with a 9-gauge vacuum-assisted Eviva core biopsy device from a inferior approach. At the completion of tissue sampling, a single top hat-shaped metallic clip was deposited at the biopsy site. Adequate sampling was achieved. The postprocedure 2-view direct digital mammogram reveals satisfactory positioning of the biopsy clip. The patient tolerated the procedure well and, after assuring adequate hemostasis, was discharged in good condition after reviewing postbiopsy breast care instructions. Final pathology results are pending. MM/MM stereotactic biopsy RT IMPRESSION: 1. Uncomplicated stereotactically-guided core biopsy of the right breast. The 2-view direct digital postprocedure mammogram reveals satisfactory positioning of the biopsy clip. 2. Final pathology results are pending. A separate report with final recommendations will be issued once these results are made available. Electronically signed by: Carrie Landis DO 01/29/2025 11:30 AM EDT
--- OUTSIDE RECORDS SUMMARY | 2025-01-29 09:59 | XMS_ITS | Continuity of Care Document ---
Author Name [facility] Organization [facility] Care Team Providers Care Eye Care Professional Name Role Phone [facility] Unavailable Unavailable Problems Combined list of problems [...] By: SABINE BURTON MD Comment: [facility] [email or web address] Entered By: SABINE BURTON MD Comment: [...] adverse reactions to drug (finding) active 11/15/1999 [facility] CECLOR Propensity to adverse reactions to drug (finding) active 11/15/1999 [facility] TOLECTIN Propensity to adverse reactions to drug (finding) active 11/15/1999 [facility] Immunizations Combined list of available immunizations from the Department of Defense and Veterans Affairs facilities. Immunization Series Date Given Administered By Site Reaction Lot Number CVX Code Drug Personal Counselor Status Comments Source PNEUMOCOCCAL, UNSPECIFIED FORMULATION 2001 109 complet ed Site: Right Deltoid [facility] FLU,3 YRS (HISTORICAL) 2000 88 complet ed [facility] Social History Combined list of available smoking, tobacco, and other social history from Department of Defense and Veterans Affairs facilities. Social History Type Response Date Comment Sourc e Tobacco smoking status [facility] HISTORY OF SMOKING 05/21/2002 quit mid 1980s [place] History of tobacco use QUIT TOBACCO USE > 7 YEARS AGO 11/20/2001 quit 1985 [place] History of tobacco use NON-TOBACCO USER 05/03/2001 QUIT 1985 [place] History of tobacco use HISTORY OF SMOKING 11/29/2000 QUIT APPROXIMATELY 1 5-20 YEARS AGO [place] This section is an empty social history section. DoD
[2025-01-29] MEDS: Sodium Bicarbonate 8.4% 50 MEQ/50 ML VIAL SUBCUT (10:24)
[2025-01-29] MEDS: Lidocaine HCl 1 % 20 ML VIAL 5 ML SUBCUT (10:25)
[2025-01-29] MEDS: Lidocaine HCl 1%/Epi 1:100,000 10 ML VIAL 12 ML SUBCUT (10:27)
== END 2025-01-29 08:45 | disposition home or self-care (01) ==
LOC: HO.MAMMO 08:44
PROVIDERS: PCP Internal Medicine; Visit Provider Surgery
DX: N64.52 Nipple discharge (principal); C50.311 Malignant neoplasm of lower-inner quadrant of right female breast
CPT/HCPCS: 19081; 76642; 88305; 99211; A4648; J2003; J2004

== ENCOUNTER → 2025-01-29 09:00 | Outpatient (BNV) | payer OTHER, SELFPAY | PROVIDERS: PCP Internal Medicine; Visit Provider Internal Medicine | DX: N63.11 Unspecified lump in the right breast, upper outer quadrant (principal); N64.52 Nipple discharge | CPT/HCPCS: 19081; 76642; 77065 ==

== ENCOUNTER 2025-02-13 08:23 | Outpatient (AMB) | payer OTHER, SELFPAY ==
--- NOTE | 2025-02-13 08:25 | A.OFFVIS_ITS ---
Vital Signs 02/13/25 08:26 Height 5 ft 1 in Weight 197 lb BMI 37.2 BP 134/66 Blood Pressure Location Rt brachial Position Sitting Pulse 81 Intake Visit Reasons: s/p Lt B usbx 11 o'clock Intake Note: Patient here s/p Lt br us bx 11o'clock. Reports bx site healing well. Patient c/o: no concerns. Reports bx site healing well. 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 She had undergone screening mammogram last December, showing a developing focal asymmetry in the lower inner breast. She had an ultrasound showing this 5 x 5 x 5 mm solid mass, irregular, at the 11 o'clock position of the right breast. There was another area at the 6 o'clock position with complicated adjacent cysts. Ultrasound biopsy of this mass at the 11 o'clock position of the right breast showed an invasive ductal carcinoma. A stereotactic biopsy was done for the the mass on the inferior aspect of the breast. This showed usual ductal hyperplasia and benign findings. She is therefore here to discuss management of the new diagnosis of invasive ductal carcinoma at the 11 o'clock position. Her menarche was at the age of 11. She had 2 pregnancies but she says these were both tubal. She never had any uterine therefore. She says that her 1st tubal was in her 20s She had menopause in her mid 40s She says her mother had breast cancer in her 60s. A sister had breast cancer in her 50s. She says her sister had genetic testing which was negative for mutations. She says she used to smoke heavily but quit many years ago. [facility] Medical History Breast cancer, right Family history of breast cancer Breast mass, right Left breast mass Morbidly obese Osteoarthritis of right knee Right knee meniscal tear Spondylosis of lumbosacral spine without myelopathy Asthma Internal derangement of right knee Asthma-COPD overlap syndrome Gait disturbance Leg weakness Lumbar radiculopathy History of gangrene History of ectopic Surgical History History of repair of hiatal hernia History of colonoscopy History of appendectomy History of tonsillectomy Family History Father Mini stroke Vascular dementia Mother Breast cancer Sister Breast cancer Brother No problems noted. Brother No problems noted. Brother No problems noted. Sister No problems noted. Sister No problems noted. Sister No problems noted. 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 Cognitive needs: No Hearing needs: No Vision needs: No Review of Systems Const Denies chills and Denies fever(s) Card Denies chest pain, Denies dyspnea and Denies dyspnea on exertion Resp Denies cough, Denies dyspnea and Denies dyspnea on exertion GI Denies hematochezia and Denies change in bowel habits Denies hematuria Musc Denies back pain and Denies limited range of motion Neuro Denies focal weakness and Denies convulsions Psych Denies depression and Denies mood swings Physical Exam Vital Signs: Last Vital Signs Pulse 81 02/13/25 08:26 BP 134/66 02/13/25 08:26 BMI result Body Mass Index 37.2 Const General: comfortable and no acute distress Nutritional Appearance: obese Orientation/consciousness: patient oriented x3 Neck Neck: Yes no lymphadenopathy Chest Other: Biopsy sites without any hematoma Palpable breast masses, no axillary lymphadenopathy Resp Auscultation: clear to auscultation bilaterally Cardio Rhythm: regular rhythm GI Palpation (GI): Soft to palpation, nontender and no guarding Neuro General: patient oriented x3 Assessment & Plan Assessment & Plan (1) Breast cancer, right: Code(s): C50.911 - Malignant neoplasm of unspecified site of right female breast Category: Medical Plan: The mass at the 11 o'clock position he had an invasive ductal carcinoma, triple negative for ER/IL and HER2. Her 2nd biopsy of the right breast did not show any suggestion of a malignancy. I therefore reviewed with her the options for now with regards to her invasive ductal cancer on the right breast. I explained the option of proceeding with lumpectomy, sentinel biopsy and Hologic localizer. This will be followed by radiation to complete treatment. The other option is to proceed with mastectomy sentinel biopsy. I explained the advantages/disadvantages each procedure She states that she would like to proceed with breast conservation therapy. I will therefore schedule her for lumpectomy of the right breast, with the Hologic localizer, and sentinel biopsy. She is scheduled to see her oncologist as well for her triple negative invasive ductal cancer of the right breast. She has appointment with Dr. Waller in [place]. I have discussed the plan with Dr. Landis of Radiology. Orders: Orders NM sentinel node w imaging 02/13/25 C50.911 - Malignant neoplasm of unspecified site of right female breast Coding Level of Care Code Est Pt Level 4 (13161) Diagnoses Breast cancer, right C50.911
[2025-02-13 08:26] VITALS: BP 134/66; PULSE 81; BMI 37.2
--- OUTSIDE RECORDS SUMMARY | 2025-02-13 08:38 | XMS_ITS | Patient Health Record ---
Author Organization [facility] Address [address] [place] [address] Care Team Providers Care Vaccine Key Customer Leader Name Role Phone Georges Chen MD Primary Care Provider Idalia Dubois MD, Yamil Unavailable Allergies Allergen (clinical drug ingredient) Drug/Non Drug Allergy documented on EMR Reaction Allergy Type Onset Date Status cefaclor CECHLOR (uncoded) Unknown Allergy Ac tive tolmetin TOLECTIN (uncoded) Unknown Allergy A ctive amoxicillin Amoxicillin Unknown Drug Allergy Act naun Reason For Referral No Information Medications Medication SIG (Take, Route, Frequency, Duration) Notes Start Date End Date Status Advair Diskus *Please review a nd pick correct strength-formulation from Medispan options. If intended option is not shown, discontinue and re-order from Quick Search* Active CeleXA *Please review a nd pick correct strength-formulation from Medispan options. If intended option is not shown, discontinue and re-order from Quick Search* Active Essential One Daily Multivit *Please review and pick correct strength-formulation from Medispan options. If intended option is not shown, discontinue and re-order from Quick Search* Active Vitamin E *Please review a nd pick correct strength-formulation from Medispan options. If intended option is not shown, discontinue and re-order from Quick Search* Active Calcium-Vitamin D *Please review and pick correct strength-formulation from Medispan options. If intended option is not shown, discontinue and re-order from Quick Search* Active Problems Problem Type SNOMED Code ICD Code Onset Dates Problem Status W/U Status Risk Notes Problem [id number] Vertigo (R42) Active confirmed Problem [id number] Asymmetrical sensorineural hearing loss (H90.5) Active confirmed Plan Of Treatment No Information Insurance Providers Payer Name Payer Address Payer Phone Subscriber Number Group Number Insured Name Patient Relationship to Insured Coverage Start Date Coverage End Date [facility] Plan [address] [place] [address] [id number] Kaley Moreira Self - patient is the insured Medical (General) History Medical History History ICD Code asthma depression Surgical History Surgery Date(Month/Year) 2 tubal pregnacies
== END 2025-02-13 08:44 | disposition home or self-care (01) ==
LOC: HO.HGS 08:24
PROVIDERS: PCP Internal Medicine; Visit Provider Surgery
DX: C50.911 Malignant neoplasm of unspecified site of right female breast (principal)
CPT/HCPCS: 99214

== ENCOUNTER → 2025-02-13 08:23 | Outpatient (BNVA) | payer OTHER, SELFPAY | PROVIDERS: PCP Internal Medicine; Visit Provider Surgery | DX: C50.411 Malignant neoplasm of upper-outer quadrant of right female breast (principal); N60.01 Solitary cyst of right breast | CPT/HCPCS: 99212 ==

== ENCOUNTER 2025-02-17 13:53 | Outpatient (AMB) | payer OTHER, SELFPAY ==
--- NOTE | 2025-02-17 14:16 | MHC.OFFVIS ---
Vital Signs 02/17/25 14:17 Height 5 ft 1 in Weight 191 lb BMI 36.1 BP 124/66 Blood Pressure Location Rt brachial Position Sitting Pulse 74 Pulse Source Pulse Oximeter Pulse Oximetry (%) 98 Oxygen Delivery Method Room Air Intake Visit Reasons: clearance surgery 03/04 Allergies amoxicillin [AMOXICILLIN] Allergy (Intermediate, Verified 02/13/25 08:25) RASH cefaclor [From CECLOR] Allergy (Intermediate, Verified 02/13/25 08:25) RASH tolmetin [From TOLECTIN] Allergy (Intermediate, Verified 02/13/25 08:25) RASH Sulfa (Sulfonamide Antibiotics) Allergy (Unknown, Verified 02/13/25 08:25) hives HPI HPI clearance surgery 03/04 : Details: 69-year-old lady, former approximately 30 pack-year smoker, quit 2014 followed for severe persistent asthma/COPD overlap syndrome and environmental allergies.? She has been using Dupixent with excellent control of her symptoms. She rarely requires to use her albuterol MDI or Spiriva. She denies any recent exacerbations. Patient is scheduled for breast lumpectomy under general anesthesia. [facility], LAT[facility] Medical History (Updated 02/17/25 @ 14:55 by Zeeshan Turner MD) Breast cancer, right Family history of breast cancer Breast mass, right Left breast mass Morbidly obese Osteoarthritis of right knee Right knee meniscal tear Spondylosis of lumbosacral spine without myelopathy Asthma Internal derangement of right knee Asthma-COPD overlap syndrome Gait disturbance Leg weakness Lumbar radiculopathy History of gangrene History of ectopic Surgical History History of repair of hiatal hernia History of colonoscopy History of appendectomy History of tonsillectomy Family History Father Mini stroke Vascular dementia Mother Breast cancer Sister Breast cancer Brother No problems noted. Brother No problems noted. Brother No problems noted. Sister No problems noted. Sister No problems noted. Sister No problems noted. 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 Cognitive needs: No Hearing needs: No Vision needs: No Review of Systems Const Denies daytime sleepiness, Denies excessive sweating, Denies fatigue, Denies fever(s), Denies lethargy, Denies malaise, Denies night sweats, Denies snoring and Denies weight loss Eyes Denies blurry vision and Denies itchy eyes ENT Denies nasal congestion, Denies post nasal drip, Denies sinus pain, Denies sinus pressure and Denies other ( Thrush) Card Denies chest pain, Denies pedal edema, Denies dyspnea, Denies orthopnea and Denies paroxysmal nocturnal dyspnea Resp Denies cough, Denies hemoptysis, Denies excessive phlegm production, Denies dyspnea, Denies snoring and Denies wheezing GI Denies abdominal pain and Denies heartburn Musc Denies myalgias, Denies arthralgias and Denies joint swelling Skin/Breast Denies rash Neuro Denies memory loss and Denies seizure-like activity Psych Denies abnormal sleep pattern, Denies anxiety and Denies memory loss Endo Denies excessive sweating, Denies fatigue and Denies heat intolerance Abhishek/Lymph Denies easy bruising Aller/Immun Denies itchy eyes, Denies seasonal rhinorrhea and Denies wheezing Physical Exam Vital Signs: Last Vital Signs Pulse 74 02/17/25 14:17 BP 124/66 02/17/25 14:17 Pulse Ox 98 02/17/25 14:17 Oxygen Delivery Method Room Air 02/17/25 14:17 BMI result Body Mass Index 36.1 Const General: no acute distress and alert Nutritional Appearance: not obese Orientation/consciousness: Other orientation findings ( oriented) HEENT Head: Yes atraumatic Eyes General: appearance normal, both eyes and all related structures Sclerae: sclerae normal EOM: EOMs intact bilaterally Neck Neck: Yes supple Lymphatic: no lymphadenopathy noted Resp Effort & Inspection: normal respiratory effort and no use of accessory muscles Auscultation: clear to auscultation bilaterally Cardio Rate: regular rate Rhythm: regular rhythm Heart sounds: no gallops, no murmurs and no rubs Skin General skin exam: other ( warm) Extrem General: No clubbing, No cyanosis and No edema Assessment & Plan Assessment & Plan (1) Asthma: Code(s): J45.909 - Unspecified asthma, uncomplicated Category: Medical Plan: Well controlled on current regimen of Dupixent, albuterol MDI, and Spiriva. Continue current regimen. (2) Environmental allergies: Code(s): Z91.09 - Other allergy status, other than to drugs and biological substances Category: Medical Plan: Well controlled on Dupixent. Continue current regimen. (3) Pulmonary hypertension, pre-operative cardiovascular examination: Code(s): Z01.810 - Encounter for preprocedural cardiovascular examination; I27.20 - Pulmonary hypertension, unspecified Category: Medical Plan: At this time patient is at low risk for pulmonary perioperative complications for the proposed lumpectomy and axillary dissection under general anesthesia. Coding Level of Care Code Est Pt Level 4 (62496) Complex EM visit Add On G2211 Diagnoses Asthma J45.909 Environmental allergies Z91.09 Pulmonary hypertension, pre-operative cardiovascular examination Z01.810; I27.20
[2025-02-17 14:17] VITALS: BP 124/66; PULSE 74; O2SAT 98; BMI 36.1
--- OUTSIDE RECORDS SUMMARY | 2025-02-17 15:47 | XMS_ITS | Patient Health Record ---
Author Organization [facility] Address [address] [place] [address] Care Team Providers Care Cash Grain Grower Name Role Phone Georges Chen MD Primary [...] Problem Status W/U Status Risk Notes Problem [id number] Vertigo (R42) Active confirmed Problem [id number] Asymmetrical sensorineural hearing loss (H90.5) Active confirmed Plan Of Treatment No Information Insurance Providers Payer Name Payer Address Payer Phone Subscriber Number Group Number Insured Name Patient Relationship to Insured Coverage Start Date Coverage End Date [facility] Plan [address] [place] [address] [id number] Kaley Moreira Self - patient is the insured Medical (General) History Medical History History ICD Code asthma depression Surgical History Surgery Date(Month/Year) 2 tubal pregnacies
== END 2025-02-17 14:44 | disposition home or self-care (01) ==
LOC: HO.HPS 13:54
PROVIDERS: PCP Internal Medicine; Visit Provider Internal Medicine Pulmonary Disease
DX: J45.909 Unspecified asthma, uncomplicated (principal); Z91.09 Other allergy status, other than to drugs and biological substances; Z01.810 Encounter for preprocedural cardiovascular examination; I27.20 Pulmonary hypertension, unspecified
CPT/HCPCS: 99214

== ENCOUNTER → 2025-02-17 13:53 | Outpatient (BNVA) | payer OTHER, SELFPAY | PROVIDERS: PCP Internal Medicine; Visit Provider Internal Medicine Pulmonary Disease | DX: Z01.810 Encounter for preprocedural cardiovascular examination (principal); I27.20 Pulmonary hypertension, unspecified; J45.50 Severe persistent asthma, uncomplicated; J44.89 Other specified chronic obstructive pulmonary disease; Z91.09 Other allergy status, other than to drugs and biological substances | CPT/HCPCS: 99212 ==

== ENCOUNTER 2025-02-19 07:29 | Outpatient (REF) | payer OTHER, SELFPAY ==
--- NOTE | ~2025-02-19 | US_ITS ---
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 COMPARISON: Priors on PACS. TECHNIQUE NEEDLE LOC: Proper informed consent is obtained from the patient after discussion of the procedure, potential risks and complications, and alternatives including declining the procedure today. Patient was given an opportunity for questions. The patient appeared to understand. The patient consented to the procedure and signed the consent form. GUIDANCE: Ultrasound. APPROACH: Lateral. TARGET: 11:00 mass on ultrasound.. ANESTHESIA: carbonated Lidocaine. LOCALIZATION SYSTEM: [employer] LOCallizer Wire-Free Guidance System with 12g needle applicator. RADIOFREQUENCY TAG: ID # [id number] RF Tag ID confirmed with LOCalizer Guidance System prior to placement. The skin is prepped and local anesthesia administered. The needle is positioned and RFID tag deployed. Final images demonstrate the LOCalizer RF tag to reside adjacent to the marker clip and within the mass. The patient tolerated the procedure well and had no immediate complications. Dressing placed and home instructions reviewed. US/US Breast RF Tag Device Right IMPRESSION: -Status post right breast RFID localization. Electronically signed by: Carrie Landis DO 02/19/2025 09:51 AM EDT
--- NOTE | ~2025-02-19 | MM_ITS ---
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 COMPARISON: Priors on PACS. TECHNIQUE NEEDLE LOC: Proper informed consent is obtained from the patient after discussion of the procedure, potential risks and complications, and alternatives including declining the procedure today. Patient was given an opportunity for questions. The patient appeared to understand. The patient consented to the procedure and signed the consent form. GUIDANCE: Ultrasound. APPROACH: Lateral. TARGET: 11:00 mass on ultrasound.. ANESTHESIA: carbonated Lidocaine. LOCALIZATION SYSTEM: [employer] LOCallizer Wire-Free Guidance System with 12g needle applicator. RADIOFREQUENCY TAG: ID # [id number] RF Tag ID confirmed with LOCalizer Guidance System prior to placement. The skin is prepped and local anesthesia administered. The needle is positioned and RFID tag deployed. Final images demonstrate the LOCalizer RF tag to reside adjacent to the marker clip and within the mass. The patient tolerated the procedure well and had no immediate complications. Dressing placed and home instructions reviewed. MM/MM diagnostic mammo unilat RT IMPRESSION: -Status post right breast RFID localization. Electronically signed by: Carrie Landis DO 02/19/2025 09:51 AM EDT
--- OUTSIDE RECORDS SUMMARY | 2025-02-19 07:31 | XMS_ITS | Patient Health Record ---
Author Organization [facility] Address [address] [place] [address] Care Team Providers Care Senior Php Software Developer Name Role Phone Georges Chen MD Primary [...] Problem Status W/U Status Risk Notes Problem [id number] Vertigo (R42) Active confirmed Problem [id number] Asymmetrical sensorineural hearing loss (H90.5) Active confirmed Plan Of Treatment No Information Insurance Providers Payer Name Payer Address Payer Phone Subscriber Number Group Number Insured Name Patient Relationship to Insured Coverage Start Date Coverage End Date [facility] Plan [address] [place] [address] [id number] Kaley Moreira Self - patient is the insured Medical (General) History Medical History History ICD Code asthma depression Surgical History Surgery Date(Month/Year) 2 tubal pregnacies
[2025-02-19] MEDS: Lidocaine HCl 1 % 20 ML VIAL 8 ML SUBCUT (08:42)
[2025-02-19] MEDS: Sodium Bicarbonate 8.4% 50 MEQ/50 ML VIAL SUBCUT (08:43)
== END 2025-02-19 07:30 | disposition home or self-care (01) ==
LOC: HO.MAMMO 07:29
PROVIDERS: PCP Internal Medicine; Visit Provider Surgery
DX: Z85.3 Personal history of malignant neoplasm of breast (principal)
CPT/HCPCS: 19285; 77062; 77065; J2003

== ENCOUNTER → 2025-02-19 08:00 | Outpatient (BNV) | payer OTHER, SELFPAY | PROVIDERS: PCP Internal Medicine; Visit Provider Internal Medicine | DX: C50.411 Malignant neoplasm of upper-outer quadrant of right female breast (principal) | CPT/HCPCS: 19285; 77065 ==

== ENCOUNTER 2025-03-04 06:48 | Day surgery (SDC) | payer OTHER, SELFPAY ==
[2025-02-28 13:07] VITALS: BMI 37.2
--- NOTE | 2025-03-03 10:02 | P.CONAN_ITS ---
Documented by User: Antoinette Crocker NP 03/03/25 10:05 HPI - Anesthesia Eval Consult details Narrative: 69yo F for Right Breast Lumpectomy w/LOCalizer, [place] Node Biopsy Pulmo optimized. [place] [facility] [place] - well controlled and rare albuterol per 02/2025 office eval [facility] Active Problems Active Problems: All Active Problems Pulmonary hypertension, pre-operative cardiovascular examination (Acute) Breast cancer, right (Acute) Family history of breast cancer (Acute) Breast mass, right (Acute) Left breast mass (Acute) Personal history of nicotine dependence (Acute) Pulmonary nodule (Acute) Sacroiliac joint dysfunction of both sides (Acute) Pes anserinus bursitis of right knee (Acute) Osteoarthritis of patellofemoral joints of both knees (Acute) Bilateral chronic knee pain (Acute) Cough (Acute) Morbidly obese (Acute) Depression with anxiety (Acute) Physical exam (Acute) Osteoarthritis of right knee (Acute) Right knee meniscal tear (Acute) Acute bronchitis (Acute) Environmental allergies (Acute) Asthma-COPD overlap syndrome (Acute) Spondylosis of lumbosacral spine without myelopathy (Acute) Asthma (Acute) Gait disturbance (Acute) Leg weakness (Acute) Lumbar radiculopathy (Acute) Past Medical History Medical History Breast cancer, right Family history of breast cancer Breast mass, right Left breast mass Morbidly obese Osteoarthritis of right knee Right knee meniscal tear Spondylosis of lumbosacral spine without myelopathy Asthma Internal derangement of right knee Asthma-COPD overlap syndrome Gait disturbance Leg weakness Lumbar radiculopathy History of gangrene History of ectopic Family History Family History Father Mini stroke Vascular dementia Mother Breast cancer Sister Breast cancer Brother No problems noted. Brother No problems noted. Brother No problems noted. Sister No problems noted. Sister No problems noted. Sister No problems noted. Family/Other Breast cancer Maternal Aunt Breast cancer Surgical History Surgical History History of repair of hiatal hernia History of colonoscopy History of appendectomy History of tonsillectomy Social History Social History Housing: House Are you a primary health care legal assistant to a significant other at home: No Do you presently have visiting nurse or other home services: No Alcohol intake: current Alcohol intake frequency: 0-2 drinks per day Patient Tobacco Use Status: Former Tobacco user Tobacco use type: Cigarette e-Cigarette/Vaping Use: Never Used Second Hand Smoke Exposure: No Use of substances other than those prescribed or required for medical reasons: No Have you been hit, kicked, punched, or otherwise hurt by someone within the past year? 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 Cognitive needs: No Hearing needs: No Vision needs: No Meds Allergies Allergy/AdvReac Type Severity Reaction Status Date / Time amoxicillin (AMOXICILLIN) Allergy Intermediate RASH Verified 03/04/25 07:49 cefaclor (From CECLOR) Allergy Intermediate RASH Verified 03/04/25 07:49 Sulfa (Sulfonamide Allergy Intermediate hives Verified 03/04/25 07:49 Antibiotics) tolmetin (From TOLECTIN) Allergy Intermediate RASH Verified 03/04/25 07:49 Home Medications ?Medication ?Instructions ?Recorded ?Confirmed ?Last Taken ?Type acetaminophen 325 mg tablet 650 mg PO QID PRN Pain 09/0202/28/25 Unknown History (Tylenol) ibuprofen 600 mg tablet 600 mg PO Q8H PRN Pain 06/2202/28/25 Unknown History albuterol sulfate 90 mcg/actuation 2 puff inhalation Q 4-6H PRN 10/25/23 02/28/25 Unknown History aerosol inhaler Shortness Of Breath Or [place] ing melatonin 10 mg tablet 10 mg PO BEDTIME PRN Sleep 0 03/04/25 03/04/25 Unknown History Exam Height,Weight and Vital Signs: Height 5 ft 1 in Weight 89.358 kg Assessment and Plan Assessment Anesthesia Assessment: Chart Reviewed Documented by User: Kenny Kemp MD 03/04/25 11:18 [facility] Past Medical History Medical History Breast cancer, right Family history of breast cancer Breast mass, right Left breast mass Morbidly obese Osteoarthritis of right knee Right knee meniscal tear Spondylosis of lumbosacral spine without myelopathy Asthma Internal derangement of right knee Asthma-COPD overlap syndrome Gait disturbance Leg weakness Lumbar radiculopathy History of gangrene History of ectopic Functional capacity: independent ambulation Family History Family History Father Mini stroke Vascular dementia Mother Breast cancer Sister Breast cancer Brother No problems noted. Brother No problems noted. Brother No problems noted. Sister No problems noted. Sister No problems noted. Sister No problems noted. Family/Other Breast cancer Maternal Aunt Breast cancer Family history of problems with anesthesia: No Surgical History Surgical History History of repair of hiatal hernia History of colonoscopy History of appendectomy History of tonsillectomy History of Problems with Anesthesia: No Social History Social History Housing: House Are you a primary health care legal assistant to a significant other at home: No Do you presently have visiting nurse or other home services: No Alcohol intake: current Alcohol intake frequency: 0-2 drinks per day Patient Tobacco Use Status: Former Tobacco user Tobacco use type: Cigarette e-Cigarette/Vaping Use: Never Used Second Hand Smoke Exposure: No Use of substances other than those prescribed or required for medical reasons: No Have you been hit, kicked, punched, or otherwise hurt by someone within the past year? 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 Cognitive needs: No Hearing needs: No Vision needs: No Meds Allergies Allergy/AdvReac Type Severity Reaction Status Date / Time amoxicillin (AMOXICILLIN) Allergy Intermediate RASH Verified 03/04/25 07:49 cefaclor (From CECLOR) Allergy Intermediate RASH Verified 03/04/25 07:49 Sulfa (Sulfonamide Allergy Intermediate hives Verified 03/04/25 07:49 Antibiotics) tolmetin (From TOLECTIN) Allergy Intermediate RASH Verified 03/04/25 07:49 Home Medications ?Medication ?Instructions ?Recorded ?Confirmed ?Last Taken ?Type acetaminophen 325 mg tablet 650 mg PO QID PRN Pain 09/0202/28/25 Unknown History (Tylenol) ibuprofen 600 mg tablet 600 mg PO Q8H PRN Pain 06/2202/28/25 Unknown History albuterol sulfate 90 mcg/actuation 2 puff inhalation Q 4-6H PRN 10/25/23 02/28/25 Unknown History aerosol inhaler Shortness Of Breath Or [place]ez ing melatonin 10 mg tablet 10 mg PO BEDTIME PRN Sleep 0 03/04/25 03/04/25 Unknown History Exam Exam Date and Time: 03/04/2025 Airway TM Dist: >3cm Neck ROM: Full Loose/Missing/Broken Teeth: No Heart: rrr Lungs: cta Other: normal orientation Assessment and Plan Final Anesthetic Review Family History of Problems with Anesthesia: No History of Problems with Anesthesia: No Final Preanesthetic Review: No Changes in Pt Med Stat, Meds/Allgs Chart Reviewed, Consent Obtained/Reviewed and Anes Risks/Benef Reviewed Patient Risk: Low Procedure Risk: Low Anesthetic Plan Anesthetic Plan: GA Disposition: Standard PACU
[2025-03-04] VITALS (7 sets, daily range): BP systolic 108–155; BP diastolic 58–76; PULSE 70–77; RESP 12–18; TEMP 36.1–36.9; O2SAT 95–100; BMI 36.7
--- NOTE | ~2025-03-04 | MM_ITS ---
Single right breast specimen radiograph demonstrates the tag and marker clip within the specimen. Electronically signed by: Carrie Landis DO 03/04/2025 01:23 PM EDT
--- NOTE | ~2025-03-04 | NM_ITS ---
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 For sentinel node. COMPARISON: Recent priors including RF localization 02/19/2025. TECHNIQUE: Right breast lymphoscintigraphy injection was performed . Approximately 0.5 mCi of technetium 99m lymphoseek and 0.8 mL of saline was divided into 4 aliquots of approximately 0.125 mCi, and injected in 4 quadrants around the right breast areola intradermally at 12:00, 3:00, 6:00, and 9:00. Immediate images and delayed images were obtained in AP, oblique and lateral views 5 minutes later. FINDINGS: There is isotope activity in four-quadrant around right breast areola following injection. There are at least 2 areas of isotope activity along the right mid axilla suggestive of multiple lymph nodes. NM/NM sentinel node w imaging IMPRESSION: At least 2 small lymph nodes seen in right mid axilla on right breast lymphoscintigraphy. Thank you for the courtesy of your referral. Electronically signed by: Finn Turner MD 03/04/2025 09:38 AM EDT
[2025-03-04] MEDS: Lidocaine 4 % Cream KIT 1 APPL TOPICAL (07:24)
[2025-03-04] MEDS: Lactated Ringers 1,000 ML 100 ML IVCONT (07:42)
--- NOTE | 2025-03-04 10:50 | MHC.SHP ---
Pre-Procedural Eval Section A - 24 Hr Update-Section A only Date of Service: 03/04/25 The patient is an INPATIENT: No Changes since office visit: No Cold of Flu in the past 2 weeks, No New Medical Problems, No Changes in Medication and No Patient answered all questions The patient has been examined within 24 hours of the surgical procedure. The History & Physical has been completed within 30 days and I have reviewed it.: Yes Section B - Complete if H&P > 30 days Chief Complaint: Unspecified lump in the right breast, unspecified Allergies: Allergies Allergy/AdvReac Type Severity Reaction Status Date / Time amoxicillin (AMOXICILLIN) Allergy Intermediate RASH Verified 03/04/25 07:49 cefaclor (From CECLOR) Allergy Intermediate RASH Verified 03/04/25 07:49 Sulfa (Sulfonamide Allergy Intermediate hives Verified 03/04/25 07:49 Antibiotics) tolmetin (From TOLECTIN) Allergy Intermediate RASH Verified 03/04/25 07:49 Plan I have reviewed the history and physical and performed a pertinent physical examination on my patient. No changes have occurred unless specified. Time Spent With Patient Time: Total time managing care of this patient today ____ minutes.
--- NOTE | 2025-03-04 12:55 | P.OP_ITS ---
Operative Note Operative Note Date of Service: 03/04/25 Narrative: Preop diagnosis: Invasive ductal carcinoma right breast Postop diagnosis: The same Procedure: Right breast lumpectomy with Hologic localizer and sentinel node biopsy Surgeon: Jake Weiss MD business banking sales assistant: WARD Lewis The patient is a 69-year-old female with a recent diagnosis of invasive ductal carcinoma right breast. She understood the technique of lumpectomy with the Hologic localizer and sentinel node biopsy. She was aware of the risks, benefits, and alternatives. The patient had undergone sentinel node mapping earlier and I had reviewed the edges. She was brought to the operating room. She was placed supine under general anesthesia via laryngeal mask airway with the right arm abducted to expose the axilla. The right breast and axilla were prepped and draped in the usual sterile fashion. A surgical time-out was done. The patient received cefazolin 2 g IV preoperatively. We identified the area on the skin at the 11 o'clock position closed this to the RFID tag using the Hologic localizer. I infiltrated this area with lidocaine 1% and made an incision using blade 15. This carried down through the full- thickness of the skin and subcutaneous fat. We dissected through the breast tissue periodically used the [employer] localizer to direct our dissection around the area of the RF ID tag. I used the Hidalgo scissors to dissect breast tissue surrounding this RF ID tag, periodically using the localizer to orient our dissection. Eventually, we are able to do circumferential dissection of the lump and this was sent as specimen. Immediate re-ray in the OR showed that the lumpectomy specimen contained both the RF ID tag and the biopsy clip. We irrigated and served for hemostasis. Once hemostasis was confirmed, I proceeded to apply moist packing into the area We changed the set up of instruments and gloves. We then proceeded to do our sentinel node biopsy. Using the gamma probe, I identified the area with the highest counts in the axilla. I made a short incision using blade 15. I carried the incision with the full-thickness of the skin and subcutaneous fat. I divided through the fascia of the axilla entered the axillary fat pad. I then used the gamma probe to identify lymph nodes We were able to identify and removed 3 sentinel nodes. [place] node 1 had a count of 49. [place] node 2 had a count of 218. [place] node 3 had a count of 1050. We made sure we had good hemostasis. We irrigated. Rescanning of the axilla did not reveal any other elevated counts I therefore irrigated. We closed the deep layers with Polysorb 3-0 simple inte rrupted sutures. At this point, we received a phone call from the pathologist confirming that the lesion appeared to be within the lumpectomy site and that the margins appeared to be clear We ensured hemostasis in the lumpectomy site. We therefore reapposed the deep tissue and subcutaneous layer of the right breast incision with Polysorb 3-0 simple interrupted sutures. Both skin incisions were closed with Polysorb 4-0 subcuticular running sutures. All incisions were infiltrated with Marcaine 0.5% for postop analgesia. Dressings were applied. The procedure was completed The patient tolerated the procedure well. There were no immediate complications. Initial and final counts of sponges and instruments were correct. Estimated blood loss was about 50 cc The patient is extubated without difficulty and transferred to the recovery room with stable vital signs. Breast [place] Node Biopsy Substrate(s) used for sentinel node biopsy in the non-neoadjuvant setting: Radiotracer All colored nodes or non-colored nodes present at the end of a dye filled lymphatic channel were removed, if dye was used as the substrate for localization: N/A All significantly radioactive nodes were removed, if radionuclide was used as the substrate for localization: Yes All palpably suspicious nodes were removed, if present: N/A If clips were placed in pathology-involved nodes, those nodes were identified and removed: N/A Procedure performed with curative intent?: Yes General Surg. - Synoptic Notes Breast [place] Node Biopsy Substrate(s) used for sentinel node biopsy in the non-neoadjuvant setting: Radiotracer All colored nodes or non-colored nodes present at the end of a dye filled lymphatic channel were removed, if dye was used as the substrate for localization: N/A All significantly radioactive nodes were removed, if radionuclide was used as the substrate for localization: Yes All palpably suspicious nodes were removed, if present: N/A If clips were placed in pathology-involved nodes, those nodes were identified and removed: N/A Procedure performed with curative intent?: Yes
== END 2025-03-04 14:23 | disposition home or self-care (01) ==
PROVIDERS: PCP Internal Medicine; Visit Provider Surgery
PROC: (CPT 19301; principal; 2025-03-04 11:10)
PROC: (CPT 19301; 2025-03-04 11:10)
DX: C50.411 Malignant neoplasm of upper-outer quadrant of right female breast (principal); Z80.3 Family history of malignant neoplasm of breast; Z17.1 Estrogen receptor negative status [ER-]; Z17.22 Progesterone receptor negative status; Z17.32 Human epidermal growth factor receptor 2 negative status; N60.02 Solitary cyst of left breast; J44.9 Chronic obstructive pulmonary disease, unspecified; J45.50 Severe persistent asthma, uncomplicated; I27.20 Pulmonary hypertension, unspecified; R26.9 Unspecified abnormalities of gait and mobility; M47.817 Spondylosis without myelopathy or radiculopathy, lumbosacral region; E66.01 Morbid (severe) obesity due to excess calories; Z68.37 Body mass index [BMI] 37.0-37.9, adult; Z79.51 Long term (current) use of inhaled steroids; Z79.1 Long term (current) use of non-steroidal anti-inflammatories (NSAID); Z79.899 Other long term (current) drug therapy; Z88.1 Allergy status to other antibiotic agents; Z88.2 Allergy status to sulfonamides; Z91.09 Other allergy status, other than to drugs and biological substances; Z98.890 Other specified postprocedural states; Z87.891 Personal history of nicotine dependence
CPT/HCPCS: 19301; 38525; 38900; 78195; 88307; 88341; 88342; A9520; J0690; J1171; J2003; J2704; J2795; J3010

== ENCOUNTER → 2025-03-04 06:48 | Outpatient (BNV) | payer OTHER, SELFPAY | PROVIDERS: PCP Internal Medicine; Visit Provider Surgery | DX: C50.911 Malignant neoplasm of unspecified site of right female breast (principal) | CPT/HCPCS: 19301; 38525; 38900 ==

== ENCOUNTER → 2025-03-04 07:39 | Outpatient (BNV) | payer OTHER, SELFPAY | PROVIDERS: PCP Internal Medicine; Visit Provider Radiology Diagnostic Radiology | DX: D05.11 Intraductal carcinoma in situ of right breast (principal) | CPT/HCPCS: 78195 ==

== ENCOUNTER 2025-03-20 14:16 | Outpatient (AMB) | payer OTHER, SELFPAY ==
--- OUTSIDE RECORDS SUMMARY | 2025-03-20 14:28 | XMS_ITS | Continuity of Care Document ---
Author Name [facility] Organization [facility] Care Team Providers Care Platform Attendant Name Role Phone [facility] Unavailable Unavailable Problems Combined list of problems [...] By: SABINE BURTON MD Comment: Mammogram 09/15/99 [facility] 1999 Entered By: SABNIE BURTON MD Comment: several anechoic cysts R [...] adverse reactions to drug (finding) active 11/15/1999 [facility] CECLOR Propensity to adverse reactions to drug (finding) active 11/15/1999 [facility] TOLECTIN Propensity to adverse reactions to drug (finding) active 11/15/1999 [facility] Immunizations Combined list of available immunizations from the Department of Defense and Veterans Affairs facilities. Immunization Series Date Given Administered By Site Reaction Lot Number CVX Code Drug Senior Benefits Manager Status Comments Source PNEUMOCOCCAL, UNSPECIFIED FORMULATION 2001 109 complet ed Site: Right Deltoid [facility] FLU,3 YRS (HISTORICAL) 2000 88 complet ed [facility] Social History Combined list of available smoking, tobacco, and other social history from Department of Defense and Veterans Affairs facilities. Social History Type Response Date Comment Sourc e Tobacco smoking status TNIS HISTORY OF SMOKING 05/21/2002 quit mid 1980s [place] History of tobacco use QUIT TOBACCO USE > 7 YEARS AGO 11/20/2001 quit 1985 [place] History of tobacco use NON-TOBACCO USER 05/03/2001 QUIT 1985 [place] History of tobacco use HISTORY OF SMOKING 11/29/2000 QUIT APPROXIMATELY 1 5-20 YEARS AGO [place] This section is an empty social history section. [facility]
--- OUTSIDE RECORDS SUMMARY | 2025-03-20 14:30 | XMS_ITS | Patient Health Record ---
Author Organization [facility] Address [address] [place] [address] Care Team Providers Care Used Equipment Sales Representative Name Role Phone Georges Chen MD Primary [...] Problem Status W/U Status Risk Notes Problem [id number] Vertigo (R42) Active confirmed Problem [id number] Asymmetrical sensorineural hearing loss (H90.5) Active confirmed Plan Of Treatment No Information Insurance Providers Payer Name Payer Address Payer Phone Subscriber Number Group Number Insured Name Patient Relationship to Insured Coverage Start Date Coverage End Date [facility] Plan [address] [place] [address] [id number] Kaley Moreira Self - patient is the insured Medical (General) History Medical History History ICD Code asthma depression Surgical History Surgery Date(Month/Year) 2 tubal pregnacies
--- NOTE | 2025-03-20 14:31 | MHC.OFFVIS ---
Vital Signs 03/20/25 14:36 Weight 196 lb BP 120/56 L Blood Pressure Location Rt brachial Position Sitting Pulse 76 Intake Visit Reasons: p/o breast lumpectomy Intake Note: Patient here s/p right breast lumpectomy with Hologic localizer and sentinel node biopsy. Patient c/o: reports some steri strips still in place. Denies pain, inflammation, oozing. Surgery: 03-04-2025 Marketing Analytics Manager Required: No Accompanied by: Spouse Allergies amoxicillin (AMOXICILLIN) Allergy (Intermediate, Verified 03/20/25 14:36) RASH cefaclor (From CECLOR) Allergy (Intermediate, Verified 03/20/25 14:36) RASH Sulfa (Sulfonamide Antibiotics) Allergy (Intermediate, Verified 03/20/25 14:36) hives tolmetin (From TOLECTIN) Allergy (Intermediate, Verified 03/20/25 14:36) RASH HPI HPI p/o breast lumpectomy: Details: She underwent lumpectomy of the right breast along with sentinel biopsy last 03/04/2025. She tolerated procedure well. She currently denies significant complaints and feels well overall. She denies any problems with the incisions. [facility] Medical History (Updated 03/20/25 @ 15:15 by Jake Weiss MD) Invasive ductal carcinoma of breast Breast cancer, right Family history of breast cancer Breast mass, right Left breast mass Morbidly obese Osteoarthritis of right knee Right knee meniscal tear Spondylosis of lumbosacral spine without myelopathy Asthma Internal derangement of right knee Asthma-COPD overlap syndrome Gait disturbance Leg weakness Lumbar radiculopathy History of gangrene History of ectopic Surgical History History of lumpectomy of right breast History of repair of hiatal hernia History of colonoscopy History of appendectomy History of tonsillectomy Family History Father Mini stroke Vascular dementia Mother Breast cancer Sister Breast cancer Brother No problems noted. Brother No problems noted. Brother No problems noted. Sister No problems noted. Sister No problems noted. Sister No problems noted. 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 Cognitive needs: No Hearing needs: No Vision needs: No Review of Systems Const Denies chills and Denies fever(s) Card Denies chest pain at rest Resp Denies cough GI Denies abdominal pain Physical Exam Vital Signs: Last Vital Signs Pulse 76 03/20/25 14:36 BP 120/56 L 03/20/25 14:36 Const General: comfortable and no acute distress Chest Other: Right breast lumpectomy site and sentinel biopsy site are both well healed, not infected, no hematoma Assessment & Plan Assessment & Plan (1) Invasive ductal carcinoma of breast: Code(s): C50.919 - Malignant neoplasm of unspecified site of unspecified female breast Category: Medical Plan: She is status post lumpectomy and sentinel biopsy of the right breast. Her final path report shows an invasive ductal carcinoma, grade 3, 12 mm in diameter, with margins free of tumor. There were 5 sentinel nodes in 3 specimens which were negative for metastatic carcinoma. She therefore has clinical T1 N0 invasive ductal carcinoma. She is triple negative for receptors. She will therefore benefit from adjuvant chemotherapy. She is following Dr. Barakat of [facility] for medical oncology. She will also need breast radiation. I told her we will see her again in the office in about a month to see how she is doing. I will make certain that her oncologist gets a copy of her path report. Coding Level of Care Code Global (38374) Diagnoses Invasive ductal carcinoma of breast C50.919
[2025-03-20 14:36] VITALS: BP 120/56; PULSE 76
== END 2025-03-20 14:58 | disposition home or self-care (01) ==
LOC: HO.HGS 14:17
PROVIDERS: PCP Internal Medicine; Visit Provider Surgery
DX: C50.919 Malignant neoplasm of unspecified site of unspecified female breast (principal)
CPT/HCPCS: 99024

== ENCOUNTER → 2025-03-20 14:16 | Outpatient (BNVA) | payer OTHER, SELFPAY | PROVIDERS: PCP Internal Medicine; Visit Provider Surgery | DX: Z48.3 Aftercare following surgery for neoplasm (principal); C50.911 Malignant neoplasm of unspecified site of right female breast; Z98.890 Other specified postprocedural states | CPT/HCPCS: 99212 ==

== ENCOUNTER 2025-04-28 09:53 | Outpatient (AMB) | payer OTHER, SELFPAY ==
--- NOTE | 2025-04-28 10:00 | A.OFFVIS_ITS ---
Vital Signs 04/28/25 10:04 Weight 194 lb BP 134/63 Blood Pressure Location Rt brachial Position Sitting Pulse 66 Intake Visit Reasons: 1mth s/p breast lumpectomy Intake Note: Patient here s/p 1mo right breast lumpectomy and sentinel node biopsy. Patient c/o: no concerns. Reports incision healed well. Denies pain, oozing, itch. Imaging Analyst Required: No Accompanied by: spouse Vinay Allergies amoxicillin (AMOXICILLIN) Allergy (Intermediate, Verified 04/28/25 10:06) RASH cefaclor (From CECLOR) Allergy (Intermediate, Verified 04/28/25 10:06) RASH Sulfa (Sulfonamide Antibiotics) Allergy (Intermediate, Verified 04/28/25 10:06) hives tolmetin (From TOLECTIN) Allergy (Intermediate, Verified 04/28/25 10:06) RASH HPI HPI 1mth s/p breast lumpectomy: Details: She is status post lumpectomy and sentinel biopsy of the right breast last February,.. Her final path report shows an invasive ductal carcinoma, grade 3, 12 mm in diameter, with margins free of tumor. There were 5 sentinel nodes in 3 specimens which were negative for metastatic carcinoma. She therefore has clinical T1 N0 invasive ductal carcinoma. She is triple negative for receptors. She was therefore started and chemotherapy by her oncologist, Dr. Davidson in [place] . She says she is tolerating this so far. [facility] Medical History Invasive ductal carcinoma of breast Breast cancer, right Family history of breast cancer Breast mass, right Left breast mass Morbidly obese Osteoarthritis of right knee Right knee meniscal tear Spondylosis of lumbosacral spine without myelopathy Asthma Internal derangement of right knee Asthma-COPD overlap syndrome Gait disturbance Leg weakness Lumbar radiculopathy History of gangrene History of ectopic Surgical History History of lumpectomy of right breast History of repair of hiatal hernia History of colonoscopy History of appendectomy History of tonsillectomy Family History Father Mini stroke Vascular dementia Mother Breast cancer Sister Breast cancer Brother No problems noted. Brother No problems noted. Brother No problems noted. Sister No problems noted. Sister No problems noted. Sister No problems noted. 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 Cognitive needs: No Hearing needs: No Vision needs: No Review of Systems Const Denies chills and Denies fever(s) Card Denies chest pain, Denies dyspnea and Reports dyspnea on exertion Resp Denies cough, Denies dyspnea and Reports dyspnea on exertion GI Denies hematochezia and Denies change in bowel habits Denies hematuria Musc Denies back pain and Denies limited range of motion Neuro Denies focal weakness and Denies convulsions Psych Denies depression and Denies mood swings Physical Exam Vital Signs: Last Vital Signs Pulse 66 04/28/25 10:04 BP 134/63 04/28/25 10:04 Const Other: Morbidly obese General: comfortable and no acute distress Chest Other: No palpable breast masses, lumpectomy site and sentinel biopsy site on the right breast are both well healed, no lymphadenopathy Resp Effort & Inspection: normal respiratory effort Assessment & Plan Assessment & Plan (1) Invasive ductal carcinoma of breast: Code(s): C50.919 - Malignant neoplasm of unspecified site of unspecified female breast Category: Medical Plan: Status post lumpectomy and sentinel biopsy of the right breast for a T1 N0 invasive ductal carcinoma, triple negative. She is undergoing adjuvant treatment with in [place] because of the triple negative cancer. She will undergo radiation thereafter I will see her in the office in about 6 months to see how she is doing She was reminded to make sure that she undergoes with the regular screening mammograms as well. Coding Level of Care Code Est Pt Level 2 (28638) Diagnoses Invasive ductal carcinoma of breast C50.919
[2025-04-28 10:04] VITALS: BP 134/63; PULSE 66
--- OUTSIDE RECORDS SUMMARY | 2025-04-28 10:45 | XMS_ITS | Encounter Summary ---
Author Organization [facility] Address [address] [place] [address] Phone Care Team Providers Care Waitress Name Role Phone Georges Chen MD Primary Care Provider [phone] Shasta Barakat MBBS Unavailable [phone] Dereck Dasilva MD Primary Care Provider [phone] Riya Carroll ACADEMIC ADVISING DIRECTOR Unavailable Encounter Details Date Type Department Care Team (Latest Contact Info) Description 01/18/2016 Transcribe Orders [facility] [address] [address] Oziel Swartz MD [address] [place] [address] ENT 2nd [place] [address] [email or web address] Vertigo (Primary Dx) Social History Tobacco Use Types Packs/Day Years Used Date Smoking Tobacco: Never Assessed Comments Unknown Sex and Gender Information Value Date Recorded Sex Assigned at Not on file Legal Sex Female 11:13 AM EDT Gender Identity Not on file Sexual Orientation Not on file documented as of this encounter Plan of Treatment Upcoming Encounters Date Type Department Care Team (Late st Contact Info) Description 05/06/2025 10:40 AM EDT Infusion [facility] [place] [address] [place] [address] Shasta Barakat MBBS [address] [place] [address] [email or web address] 05/06/2025 11:30 AM EDT Office Visit [facility] at [address] [address] Riya Carroll CNP [address] [place] [address] [email or web address] Inna Lentz, FOOD AND NUTRITION SUPERVISOR [address] [place] [address] [email or web address] 05/07/2025 11:20 AM EDT Infusion [facility] Center at [address] [address] Shasta Barakat MBBS [address] [place] [address] [email or web address] Erika Swan, TONIO [address] [place] [id number] [email or web address] 05/08/2025 3:00 PM EDT Infusion [facility] Center at [address] [address] Shasta Barakat MBBS [address] [place] [address] [email or web address] 05/19/2025 9:20 AM EDT Infusion [facility] at [address] [address] Shasta Barakat MBBS [address] [place] [address] [email or web address] 05/19/2025 10:00 AM EDT Office Visit [facility] at [address] [address] Shasta Barakat [address] [address] [email or web address] 05/22/2025 1:20 PM EDT Infusion [facility] at [address] [address] Shasta Barakat [address] [address] [email or web address] Kate Lucio RN [address] [place] [address] [email or web address] 05/23/2025 3:40 PM EDT Infusion [facility] at [address] [address] Shasta Barakat [address] [address] [email or web address] 06/03/2025 1:40 PM EDT Infusion [facility] at [address] [address] Shasta Barakat MBBS [address] [place] [address] [email or web address] 06/03/2025 2:30 PM EDT Office Visit [facility] at [address] [address] Inna Lentz FNP [address] [place] [address] [email or web address] 06/04/2025 10:40 AM EDT Infusion [facility] at [address] [address] Shasta Barakat, [address] [address] [email or web address] Pearl Saleem, TONIO [address] [place] [address] [email or web address] 06/09/2025 1:40 PM EDT Infusion [facility] at [address] [address] Shasta Barakat, [address] [address] [email or web address] 06/09/2025 2:40 PM EDT Office Visit [facility] at [address] [address] Shasta Barakat, [address] [address] [email or web address] 06/11/2025 9:20 AM EDT Infusion [facility] at [address] [address] Shasta Barakat, [address] [address] [email or web address] Heide Macias, TONIO [address] [place] [address] [email or web address] 06/17/2025 1:20 PM EDT Infusion [facility] at [address] [address] Shasta Barakat MBBS [address] [place] [address] [email or web address] 06/17/2025 2:30 PM EDT Office Visit [facility] at [address] [address] Inna Lentz FNP [address] [place] [address] [email or web address] 06/18/2025 1:20 PM EDT Infusion [facility] at [address] [address] Shasta Barakat MBBS [address] [place] [address] [email or web address] Narayan Kumar, Pearl Bender, RN [address] [place] [address] [email or web address] documented as of this encounter Visit Diagnoses Diagnosis Vertigo- Primary Dizziness and giddiness documented in this encounter Care Teams Waitress Relationship Specialty Start Date End Date Georges Chen MD [address] [place] [address] PCP - General Internal Medicine 01/06/16 03/05/25 Dereck Dasilva MD [address] [place] [address] PCP - General Internal Medicine 03/06/25 Shasta Barakat MBBS [address] [place] [address] [email or web address] Internal Medicine 02/10/25 Riya Carroll CNP [address] [place] [address] [email or web address] Nurse Practitioner 03/31/25 documented as of this encounter Additional Source Comments The information contained in this document represents components of the legal health record. It is not the complete legal health record.[facility]
--- OUTSIDE RECORDS SUMMARY | 2025-04-28 10:45 | XMS_ITS | Patient Health Record ---
Author Organization [facility] Address [address] [place] [address] Care Team Providers Care Buttermaker Name Role Phone Georges Chen MD Primary [...] Problem Status W/U Status Risk Notes Problem Vertigo ([id number]) Vertigo (R42) Active confirmed Problem Asymmetrical sensorineural hearing loss ([id number]) Asymmetrical sensorineural hearing loss (H90.5) Active confirmed Plan Of Treatment No Information Insurance Providers Payer Name Payer Address Payer Phone Subscriber Number Group Number Insured Name Patient Relationship to Insured Coverage Start Date Coverage End Date [facility] Plan [address] [place] [address] [id number] Kaley Moreira Self - patient is the insured Medical (General) History Medical History History ICD Code asthma depression Surgical History Surgery Date(Month/Year) 2 tubal pregnacies
== END 2025-04-28 10:19 | disposition home or self-care (01) ==
LOC: HO.HGS 09:54
PROVIDERS: PCP Internal Medicine; Visit Provider Surgery
DX: C50.919 Malignant neoplasm of unspecified site of unspecified female breast (principal)
CPT/HCPCS: 99024

== ENCOUNTER 2025-06-18 10:03 | Outpatient (AMB) | payer OTHER, SELFPAY ==
[2025-06-18 10:05] VITALS: BP 111/57; PULSE 103; TEMP 36.8; O2SAT 96
--- NOTE | 2025-06-18 10:05 | MHC.OFFVIS ---
Vital Signs 06/18/25 10:05 Weight 197 lb BP 111/57 L Blood Pressure Location Rt brachial Position Sitting Pulse 103 H Pulse Source Pulse Oximeter Temp 98.2 F Temp Source Temporal Artery Scan Pulse Oximetry (%) 96 Oxygen Delivery Method Room Air Intake Visit Reasons: Asthma/COPD Allergies amoxicillin (AMOXICILLIN) Allergy (Intermediate, Verified 04/28/25 10:06) RASH cefaclor (From CECLOR) Allergy (Intermediate, Verified 04/28/25 10:06) RASH Sulfa (Sulfonamide Antibiotics) Allergy (Intermediate, Verified 04/28/25 10:06) hives tolmetin (From TOLECTIN) Allergy (Intermediate, Verified 04/28/25 10:06) RASH HPI HPI Asthma/COPD: Details: 69-year-old lady, former approximately 30 pack-year smoker, quit 2014 followed for severe persistent asthma/COPD overlap syndrome and environmental allergies.? She has been using Dupixent with excellent control of her symptoms. She rarely requires to use her albuterol MDI. She did have an ER visit yesterday for what appears to be bronchitic symptoms and was started on Levaquin with her main complain now being cough. She is undergoing chemotherapy for underlying breast cancer. [facility] Medical History Invasive ductal carcinoma of breast Breast cancer, right Family history of breast cancer Breast mass, right Left breast mass Morbidly obese Osteoarthritis of right knee Right knee meniscal tear Spondylosis of lumbosacral spine without myelopathy Asthma Internal derangement of right knee Asthma-COPD overlap syndrome Gait disturbance Leg weakness Lumbar radiculopathy History of gangrene History of ectopic Surgical History History of lumpectomy of right breast History of repair of hiatal hernia History of colonoscopy History of appendectomy History of tonsillectomy Family History Father Mini stroke Vascular dementia Mother Breast cancer Sister Breast cancer Brother No problems noted. Brother No problems noted. Brother No problems noted. Sister No problems noted. Sister No problems noted. Sister No problems noted. 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 Cognitive needs: No Hearing needs: No Vision needs: No Review of Systems Const Denies daytime sleepiness, Denies excessive sweating, Denies fatigue, Reports fever(s), Denies lethargy, Denies malaise, Denies night sweats, Denies snoring and Denies weight loss Eyes Denies blurry vision and Denies itchy eyes ENT Denies nasal congestion, Denies post nasal drip, Denies sinus pain, Denies sinus pressure and Denies other ( Thrush) Card Denies chest pain, Denies pedal edema, Denies dyspnea, Denies orthopnea and Denies paroxysmal nocturnal dyspnea Resp Reports cough, Denies hemoptysis, Denies excessive phlegm production, Denies dyspnea, Denies snoring and Denies wheezing GI Denies abdominal pain and Denies heartburn Musc Denies myalgias, Denies arthralgias and Denies joint swelling Skin/Breast Denies rash Neuro Denies memory loss and Denies seizure-like activity Psych Denies abnormal sleep pattern, Denies anxiety and Denies memory loss Endo Denies excessive sweating, Denies fatigue and Denies heat intolerance Abhishek/Lymph Denies easy bruising Aller/Immun Denies itchy eyes, Denies seasonal rhinorrhea and Denies wheezing Physical Exam Vital Signs: Last Vital Signs Temp 98.2 F 06/18/25 10:05 Pulse 103 H 06/18/25 10:05 BP 111/57 L 06/18/25 10:05 Pulse Ox 96 06/18/25 10:05 Oxygen Delivery Method Room Air 06/18/25 10:05 Const General: no acute distress and alert Nutritional Appearance: not obese Orientation/consciousness: Other orientation findings ( oriented) HEENT Head: Yes atraumatic Eyes General: appearance normal, both eyes and all related structures Sclerae: sclerae normal EOM: EOMs intact bilaterally Neck Neck: Yes supple Lymphatic: no lymphadenopathy noted Resp Effort & Inspection: normal respiratory effort and no use of accessory muscles Auscultation: clear to auscultation bilaterally Cardio Rate: regular rate Rhythm: regular rhythm Heart sounds: no gallops, no murmurs and no rubs Skin General skin exam: other ( warm) Extrem General: No clubbing, No cyanosis and No edema Assessment & Plan Assessment & Plan (1) Asthma-COPD overlap syndrome: Code(s): J44.9 - Chronic obstructive pulmonary disease, unspecified Category: Medical Plan: Baseline controlled on Dupixent, albuterol MDI. Will add Breo. (2) Environmental allergies: Code(s): Z91.09 - Other allergy status, other than to drugs and biological substances Category: Medical Plan: Well control on Dupixent. Continue current regimen. (3) Personal history of nicotine dependence: Code(s): Z87.891 - Personal history of nicotine dependence Category: Medical Plan: Continue with lung cancer screening, next in July of 2025. (4) Acute bronchitis: Code(s): J20.9 - Acute bronchitis, unspecified Category: Medical Plan: Has been evaluated in ER yesterday and started on Levaquin. Patient to finish Levaquin. Will add codeine syrup for symptom control. Medications: New codeine-guaifenesin 10-100 mg/5 mL 10 mL PO Q4-6H PRN 473 mL 0RF cough Coding Level of Care Code Est Pt Level 4 (64956) Complex EM visit Add On G2211 Diagnoses Asthma-COPD overlap syndrome J44.9 Environmental allergies Z91.09 Personal history of nicotine dependence Z87.891 Acute bronchitis J20.9
== END 2025-06-18 10:29 | disposition home or self-care (01) ==
LOC: HO.HPS 10:03
PROVIDERS: PCP Internal Medicine; Visit Provider Internal Medicine Pulmonary Disease
DX: J44.9 Chronic obstructive pulmonary disease, unspecified (principal); Z91.09 Other allergy status, other than to drugs and biological substances; Z87.891 Personal history of nicotine dependence; J20.9 Acute bronchitis, unspecified
CPT/HCPCS: 99214

== ENCOUNTER → 2025-06-18 10:03 | Outpatient (BNVA) | payer OTHER, SELFPAY | PROVIDERS: PCP Internal Medicine; Visit Provider Internal Medicine Pulmonary Disease | DX: J44.9 Chronic obstructive pulmonary disease, unspecified (principal); Z91.09 Other allergy status, other than to drugs and biological substances; Z87.891 Personal history of nicotine dependence; J20.9 Acute bronchitis, unspecified | CPT/HCPCS: 99212 ==

== ENCOUNTER 2025-08-01 15:15 | Outpatient (REF) | payer OTHER, SELFPAY ==
--- NOTE | ~2025-08-01 | CT_ITS ---
EXAMINATION: CT LUNG SCREENING HISTORY: Z87.891 - Personal history of nicotine dependence TECHNIQUE: Low dose axial images were obtained from the sternal notch to upper abdomen without IV contrast per standard departmental protocol. Sagittal and coronal reformatted images were also obtained and reviewed. One or more of the following techniques was used for dose reduction: Automated exposure control, adjustment of the mA and/or kV according to patient size, use of iterative reconstruction technique. DLP: Previous chest CT scans most recently July 2024 mGy-cm COMPARISON: There are no prior studies available for comparison. FINDINGS: Lung nodules: 2 mm right upper lobe nodule axial image 82 series 3, stable. 3 mm calcified right upper lobe nodule axial image 1:15 series 3, stable. Mild scarring or subsegmental atelectasis in the posterior segment of the right upper lobe near the major fissure axial image 127 series 3, stable. 2 mm noncalcified posterior segment right upper lobe nodule axial image 171 series 3, stable. 4 mm calcified lingular nodule axial image 259 series 3, stable. Several 2 mm right lower lobe clustered nodules axial image to 39-42 and 250 series 3. Do not definitely seen on prior exam and may be new. There is a subsegmental atelectasis at the lung bases. Central airways are clear. Emphysema: mild Coronary Calcification: none Aortic Arch Calcification: none Mediastinum: Normal heart size. Trace pericardial effusion or thickening. Normal caliber thoracic aorta. No thyroid nodule. There may be a small esophageal hernia. Right jugular port with tip projecting over the SVC. There is a new small/trace right pleural effusion. No left pleural effusion. No pneumothorax. No chest wall mass. No enlarged axillary lymph nodes. Visualized upper abdomen: The visualized portions of the liver, spleen, and adrenals have an unremarkable unenhanced appearance. Degenerative changes of the spine. Old left rib fractures. CT/CT lung screening IMPRESSION: There are several small 2 mm cluster nodules in the right lower lobe measuring 2 mm that may be new. Otherwise pulmonary nodules are stable, largest a 4 mm calcified lingular nodule. Mild emphysema. New small/trace right pleural effusion. LUNG-RADS ASSESSMENT: Lung-RADS 2: Benign MANAGEMENT: Continue annual screening with LDCT in 12 months Category S: N/A Electronically signed by: Heide Fabian MD 08/01/2025 04:59 PM EST
--- OUTSIDE RECORDS SUMMARY | 2025-08-01 15:19 | XMS_ITS ---
Author Organization [facility] Address [address] [facility] [address] [place] [id number] Phone Care Team Providers Care Ordnance Keeper Name Role Phone Shasta Barakat MBBS Unavailable [phone] Dereck Dasilva MD Primary Care Provider [phone] Riya Carroll EAR NOSE THROAT SURGEON Unavailable Inna Lentz PRINT PRESS OPERATOR Unavailable [phone] Gemma Cai HANDS PARTER Unavailable Active Problems Problem Noted Date Diagnosed Date Malignant neoplasm of right breast in female, estrogen receptor positive 03/07/2025 Assessment & Plan (07/21/2025 1:51 PM EST): IMPRESSION: This is a 69-year-old woman with the following diagnosis: 01/15/2025: Right breast invasive ductal carcinoma, 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 Patient has been diagnosed with early stage although aggressive type of breast cancer. She has undergone surgical management with negative margin and no further surgery is indicated. She does not have any signs or symptoms suggestive of metastatic disease so staging scans are not indicated. Genetic testing was negative. I discussed adjuvant therapy as per current guidelines. For patients with triple negative breast cancer and tumor size of more than 0.5 cm, adjuvant chemotherapy is recommended. There are 2 options for adjuvant chemotherapy, 2 drug options with Taxotere and cyclophosphamide and 3 drug options with dose dense doxorubicin, cyclophosphamide and paclitaxel. Current guidelines favor doing 3 drug regimen in the setting. Patient is in good health and does not have any history of cardiac issues. She has very good performance status and is a reasonable candidate for current standard treatment options. Since patient underwent breast conservation therapy, she is a candidate for adjuvant radiation therapy. Side effects from chemotherapy were discussed. She has been tolerating current therapy without any significant side effects or complications and will continue as planned. 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 Patient has been diagnosed with early stage although aggressive type of breast cancer. She has undergone surgical management with negative margin and no further surgery is indicated. She does not have any signs or symptoms suggestive of metastatic disease so staging scans are not indicated. Genetic testing was negative. I discussed adjuvant therapy as per current guidelines. For patients with triple negative breast cancer and tumor size of more than 0.5 cm, adjuvant chemotherapy is recommended. There are 2 options for adjuvant chemotherapy, 2 drug options with Taxotere and cyclophosphamide and 3 drug options with dose dense doxorubicin, cyclophosphamide and paclitaxel. Current guidelines favor doing 3 drug regimen in the setting. Patient is in good health and does not have any history of cardiac issues. She has very good performance status and is a reasonable candidate for current standard treatment options. Since patient underwent breast conservation therapy, she is a candidate for adjuvant radiation therapy. Side effects from chemotherapy were discussed. She has been tolerating current therapy without any significant side effects or complications and will continue as planned. RECOMMENDATIONS: C4/12 of weekly paclitaxel chemotherapy on 07/09/2025 She is a candidate for adjuvant radiation therapy after completion of chemotherapy Return for follow-up in 1 week with labs Thank you very much for allowing me to participate in this patient's care Assessment & Plan (06/25/2025 8:43 PM EDT): IMPRESSION: This is a 69-year-old woman with the following diagnosis: 01/15/2025: Right breast invasive ductal carcinoma, grade 3 Triple negative - HER2 new 0 by IHC Ki-67 high Stage Anatomical IA (pT1b, pN0, cM0) Stage prognostic IB Patient is postmenopausal Patient is status post right breast elevation therapy with right lumpectomy and sentinel lymph node evaluation MyRisk static testing negative URI: DISCUSSION: I discussed overall impression, natural history of the disease, prognosis, stage of breast cancer, and further management in this regard. Patient has been diagnosed with early stage although aggressive type of breast cancer. She has undergone surgical management with negative margin and no further surgery is indicated. She does not have any signs or symptoms suggestive of metastatic disease so staging scans are not indicated. Genetic testing was negative. I discussed adjuvant therapy as per current guidelines. For patients with triple negative breast cancer and tumor size of more than 0.5 cm, adjuvant chemotherapy is recommended. There are 2 options for adjuvant chemotherapy, 2 drug options with Taxotere and cyclophosphamide and 3 drug options with dose dense doxorubicin, cyclophosphamide and paclitaxel. Current guidelines favor doing 3 drug regimen in the setting. Patient is in good health and does not have any history of cardiac issues. She has very good performance status and is a reasonable candidate for current standard treatment options. Since patient underwent breast conservation therapy, she is a candidate for adjuvant radiation therapy. Side effects from chemotherapy were discussed. She has been tolerating current therapy without any significant side effects or complications and will continue as planned. RECOMMENDATIONS: Continue to hold C3/12 of weekly paclitaxel chemotherapy at this time since patient has not recovered from recent illness yet Return for follow-up in 1 week for reevaluation regarding resuming chemotherapy Discussed [id number] symptomatic treatment for cough and congestion She is a candidate for adjuvant radiation therapy after completion of chemotherapy Return for follow-up in 1 week with labs Thank you very much for allowing me to participate in this patient's care Assessment & Plan (06/10/2025 9:22 AM EDT): IMPRESSION: This is a 69-year-old woman with the following diagnosis: 01/15/2025: Right breast invasive ductal carcinoma, 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 Patient has been diagnosed with early stage although aggressive type of breast cancer. She has undergone surgical management with negative margin and no further surgery is indicated. She does not have any signs or symptoms suggestive of metastatic disease so staging scans are not indicated. Genetic testing was negative. I discussed adjuvant therapy as per current guidelines. For patients with triple negative breast cancer and tumor size of more than 0.5 cm, adjuvant chemotherapy is recommended. There are 2 options for adjuvant chemotherapy, 2 drug options with Taxotere and cyclophosphamide and 3 drug options with dose dense doxorubicin, cyclophosphamide and paclitaxel. Current guidelines favor doing 3 drug regimen in the setting. Patient is in good health and does not have any history of cardiac issues. She has very good performance status and is a reasonable candidate for current standard treatment options. Since patient underwent breast conservation therapy, she is a candidate for adjuvant radiation therapy. Side effects from chemotherapy were discussed. She has been tolerating current therapy without any significant side effects or complications and will continue as planned. 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 Patient has been diagnosed with early stage although aggressive type of breast cancer. She has undergone surgical management with negative margin and no further surgery is indicated. She does not have any signs or symptoms suggestive of metastatic disease so staging scans are not indicated. Genetic testing was negative. I discussed adjuvant therapy as per current guidelines. For patients with triple negative breast cancer and tumor size of more than 0.5 cm, adjuvant chemotherapy is recommended. There are 2 options for adjuvant chemotherapy, 2 drug options with Taxotere and cyclophosphamide and 3 drug options with dose dense doxorubicin, cyclophosphamide and paclitaxel. Current guidelines favor doing 3 drug regimen in the setting. Patient is in good health and does not have any history of cardiac issues. She has very good performance status and is a reasonable candidate for current standard treatment options. Since patient underwent breast conservation therapy, she is a candidate for adjuvant radiation therapy. Side effects from chemotherapy were discussed. She has been tolerating current therapy without any significant side effects or complications and will continue as planned. RECOMMENDATIONS: C4D1 of chemotherapy on 05/22/2025 -last cycle of AC chemotherapy Since chemo is not due for another few days, will check CBCD on day of chemotherapy 2 weeks from 05/22, she will start her next phase of chemotherapy with weekly paclitaxel Future appointment already scheduled Thank you very much for allowing me to participate in this patient's care Assessment & Plan (04/22/2025 1:27 PM EDT): IMPRESSION: This is a 69-year-old woman with the following diagnosis: 01/15/2025: Right breast invasive ductal carcinoma, 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 Patient has been diagnosed with early stage although aggressive type of breast cancer. She has undergone surgical management with negative margin and no further surgery is indicated. She does not have any signs or symptoms suggestive of metastatic disease so staging scans are not indicated. Genetic testing was negative. I discussed adjuvant therapy as per current guidelines. For patients with triple negative breast cancer and tumor size of more than 0.5 cm, adjuvant chemotherapy is recommended. There are 2 options for adjuvant chemotherapy, 2 drug options with Taxotere and cyclophosphamide and 3 drug options with dose dense doxorubicin, cyclophosphamide and paclitaxel. Current guidelines favor doing 3 drug regimen in the setting. Patient is in good health and does not have any history of cardiac issues. She has very good performance status and is a reasonable candidate for current standard treatment options. Since patient underwent breast conservation therapy, she is a candidate for adjuvant radiation therapy. Side effects from chemotherapy were discussed. She has been tolerating current therapy without any significant side effects or complications and will continue as planned. 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 Patient has been diagnosed with early stage although aggressive type of breast cancer. She has undergone surgical management with negative margin and no further surgery is indicated. She does not have any signs or symptoms suggestive of metastatic disease so staging scans are not indicated. Genetic testing was negative. I discussed adjuvant therapy as per current guidelines. For patients with triple negative breast cancer and tumor size of more than 0.5 cm, adjuvant chemotherapy is recommended. There are 2 options for adjuvant chemotherapy, 2 drug options with Taxotere and cyclophosphamide and 3 drug options with dose dense doxorubicin, cyclophosphamide and paclitaxel. Current guidelines favor doing 3 drug regimen in the setting. Patient is in good health and does not have any history of cardiac issues. She has very good performance status and is a reasonable candidate for current standard treatment options. Since patient underwent breast conservation therapy, she is a candidate for adjuvant radiation therapy. Side effects from chemotherapy were discussed. RECOMMENDATIONS: Labs today Schedule port placement and echocardiogram Scheduled to start chemotherapy in about 4 weeks with dose dense AC followed by weekly paclitaxel Patient will undergo chemo teaching at this time consent will be obtained I have asked my office to obtain her genetic testing report from [facility] Return for follow-up on cycle 1 day 1 of chemotherapy Thank you very much for allowing me to participate in this patient's care Current Treatment and Therapy Plans AC-T WEEKLY - DOXORUBICIN 60 MG/M2/CYCLOPHOSPHAMIDE 600 MG/M2 EVERY 2 WEEKS/PACLITAXEL 80 MG/M2 WEEKLY* Plan Start Date:04/07/2025 Plan Provider:Shasta Barakat MBBS Linked Problems Malignant neoplasm of upper- outer quadrant of right breast in female, estrogen receptor positive Treatment Medications Current Day (Day 1 , Cycle 7 - Planned for 07/30/2025) Next Day (Day 8, Cycle 7 - Planned for 08/06/2025) cycloPHOSphamide (CYTOXAN) infusion 250 mL (liquid vial)DOXOrubicin (ADRIAMYCIN)PACLitaxel (TAXOL)PACLitaxel (TAXOL) IVPB in 250 mL (Doses >85 mg to 199 mg) PACLitaxeL (TAXOL) 150 mg in sodium chloride 0.9% (PVC Free) 295 mL IVPB PACLitaxeL (TAXOL) 150 mg in sodium chloride 0.9% (PVC Free) 295 mL IVPB Past Treatment and Therapy Plans No past plan information found. Lifetime Dose Tracking * Chemical Lifetime Dose Automatic Entry Manual Entr y doxorubicin 239.894 mg/m2 (448 mg) 239.894 mg/m2 (448 mg) 0 mg/m2 (0 mg) Invasive Cardiology Radiation Exposure 1 mGy 0 mGy 1 mGy 2. DAP 48.76 uGy-m2 0 uGy-m2 48.76 uGy-m2
--- OUTSIDE RECORDS SUMMARY | 2025-08-01 15:19 | XMS_ITS | Clinical Summary ---
Author Organization [facility] Address [address] [facility] [address] [place] [phone] Phone Care Team Providers Care Director Emergency Name Role Phone Shasta Barakat MBBS Unavailable [phone] Dereck Dasilva MD Primary Care Provider [phone] Riya Carroll ENTRY TECH Unavailable Inna Lentz CUT AND PRINT MACHINE OPERATOR Unavailable [phone] Gemma Cai SHOTGUN SHELL ASSEMBLY MACHINE ADJUSTER Unavailable [phone] Allergies Active Allergy Reactions Criticality Noted Date Comments Amoxicillin Rash,Unknown Low 11/15/1999 Cefaclor Rash,Unknown Low 11/15/1999 Sulfadiazine Itching 03/06/2025 Sulfur Anxiety,Hives Low 03/06/2025 Tolmetin Rash,Unknown Low 11/15/1999 Medications citalopram (CELEXA) 40 MG tablet Take 40 mg by mouth daily. 05/14/20 24 Active DUPIXENT PEN 300 mg/2 mL subcutaneous pen Inject 300 mg under the skin every 15 (fifteen) days. 03/03/20 25 Active esomeprazole (NEXIUM) 40 MG capsule Take 1 capsule by mouth daily before breakfast. 10/01/19 25 Active ibuprofen (ADVIL,MOTRIN) 600 MG tablet Take 600 mg by mouth every 6 (six) hours as needed. 03/04/20 25 Active dexAMETHasone (DECADRON) 4 MG tablet Take 1 tablet (4 mg total) by mouth 2 (two) times a day with meals. Take for 3 days after chemotherapy 24 tablet 03/26/20 25 Active prochlorperazine (COMPAZINE) 10 MG tablet Take 1 tablet (10 mg total) by mouth every 6 (six) hours as needed (nausea). 60 tablet 3 03/26/20 25 Active albuterol 90 mcg/actuation inhaler Inhale 2 puffs into the lungs every 4 (four) hours as needed. 04/11/20 25 Active nystatin (NYSTOP) powder Apply topically 4 (four) times a day. Underneath left breast for 7 days 15 g 04/22/20 25 Active levoFLOXacin (LEVAQUIN) 500 MG tablet Take 1 tablet (500 mg total) by mouth daily for 4 days. 4 tablet 06/18/20 25 025 Active Problems Problem Noted Date Diagnosed Date [...] week for reevaluation regarding resuming chemotherapy Discussed [id number] symptomatic treatment for cough and congestion She [...] [facility] DISCUSSION: I discussed overall [...] to obtain her genetic testing report from [facility] Return for follow-up on cycle 1 day 1 of chemotherapy Thank you very much for allowing me to participate in this patient's care Encounters Date Type Department Care Team Description 07/28/2025 Telephone [facility] at [address] [address] Shasta Barakat MBBS 07/25/2025 Orders Only [facility] at [address] [address] Gemma Cai NP 07/23/2025 2:00 PM EST Infusion [facility] at [address] [address] Shasta Barakat, Tia Lam, TONIO Malignant neoplasm of upper-outer quadrant of right breast in female, estrogen receptor positive (Primary Dx) 07/21/2025 2:20 PM EST Office Visit [facility] at [address] [address] Shasta Barakat MBBS Malignant neoplasm of upper-outer quadrant of right breast in female, estrogen receptor positive (Primary Dx) 07/21/2025 1:40 PM EST Infusion [facility] at [address] [address] Shasta Barakat, Riya Mckinnon, TONIO Malignant neoplasm of upper-outer quadrant of right breast in female, estrogen receptor positive 07/21/2025 Orders Only [facility] at [address] [address] Yakelin Choe Malignant neoplasm of upper-outer quadrant of right breast in female, estrogen receptor positive (Primary Dx) 07/16/2025 2:40 PM EST Infusion [facility] at [address] [address] Shasta Barakat, Becka Chua, TONIO Malignant neoplasm of upper-outer quadrant of right breast in female, estrogen receptor positive (Primary Dx) 07/16/2025 Orders Only [facility] at [address] [address] [place] Malignant neoplasm of upper-outer quadrant of right breast in female, estrogen receptor positive (Primary Dx) 07/15/2025 11:00 AM EST Office Visit [facility] at [address] [address] Inna Lentz, CUT AND PRINT MACHINE OPERATOR Malignant neoplasm of upper-outer quadrant of right breast in female, estrogen receptor positive (Primary Dx) 07/15/2025 10:00 AM EST Infusion [facility] at [address] [address] Shasta Barakat MBBS Examination prior to chemotherapy 07/09/2025 10:00 AM EDT Infusion [facility] at [address] [address] Shasta Barakat, Pearl Kline, RN Malignant neoplasm of upper-outer quadrant of right breast in female, estrogen receptor positive (Primary Dx) 07/07/2025 3:20 PM EDT Office Visit [facility] at [address] [address] Shasta Barakat, EHSAN Malignant neoplasm of upper-outer quadrant of right breast in female, estrogen receptor positive (Primary Dx) 07/07/2025 2:00 PM EDT Infusion [facility] at [address] [address] Shasta Barakat MBBS Examination prior to chemotherapy 07/02/2025 1:20 PM EDT Infusion [facility] at [address] [address] Shasta Barakat, Heide Martin, RN Malignant neoplasm of upper-outer quadrant of right breast in female, estrogen receptor positive (Primary Dx) 07/01/2025 1:30 PM EDT Office Visit [facility] at [address] [address] Mary Carmen, Inna A, CUT AND PRINT MACHINE OPERATOR Malignant neoplasm of upper-outer quadrant of right breast in female, estrogen receptor positive (Primary Dx); Chronic obstructive pulmonary disease, unspecified COPD type 07/01/2025 12:40 PM EDT Infusion [facility] at [address] [address] Shasta Barakat MBBS Examination prior to chemotherapy 06/25/2025 1:20 PM EDT Infusion [facility] at [address] [address] Shasta Barakat MBBS Brumbaugh, Benjamin, RN 06/25/2025 10:40 AM EDT Office Visit [facility] at [address] [address] Shasta Barakat MBBS Malignant neoplasm of upper-outer quadrant of right breast in female, estrogen receptor positive (Primary Dx) 06/25/2025 9:20 AM EDT Infusion [facility] at [address] [address] Shasta Barakat MBBS Brumbaugh, Benjamin, RN Examination prior to chemotherapy 06/17/2025 4:11 PM EDT - 06/17/2025 10:29 PM EDT Emergency [facility] [address] [place] [address] Leopoldo Willingham MD Discharge Disposition: Home or Self Care 06/17/2025 2:30 PM EDT Office Visit [facility] at [address] [address] Mary Carmen, Inna A, CUT AND PRINT MACHINE OPERATOR Malignant neoplasm of upper-outer quadrant of right breast in female, estrogen receptor positive (Primary Dx); Postural urinary incontinence; Chronic obstructive pulmonary disease, unspecified COPD type; Fever, unspecified fever cause 06/17/2025 1:20 PM EDT Infusion [facility] at [address] [address] Shasta Barakat MBBS Examination prior to chemotherapy 06/17/2025 Procedure Pass [facility], Ct Scan - [address] [address] 06/11/2025 9:20 AM EDT Infusion [facility] at [address] [address] Shasta Barakat, Heide Martin, RN Malignant neoplasm of upper-outer quadrant of right breast in female, estrogen receptor positive (Primary Dx) 06/09/2025 2:40 PM EDT Office Visit [facility] at [address] [address] Shasta Barakat MBBS Malignant neoplasm of upper-outer quadrant of right breast in female, estrogen receptor positive (Primary Dx) 06/09/2025 1:40 PM EDT Infusion [facility] at [address] [address] Shasta Barakat MBBS Examination prior to chemotherapy 06/04/2025 10:40 AM EDT Infusion [facility] at [address] [address] Shasta Barakat, Adrianna Trinidad, RN Malignant neoplasm of upper-outer quadrant of right breast in female, estrogen receptor positive (Primary Dx) 06/03/2025 2:30 PM EDT Office Visit [facility] at [address] [address] Inna Lentz, ISABEL Malignant neoplasm of upper-outer quadrant of right breast in female, estrogen receptor positive (Primary Dx); Candidiasis of breast; Examination prior to chemotherapy; Postural urinary incontinence; Dry mouth; Chronic obstructive pulmonary disease, unspecified COPD type 06/03/2025 1:20 PM EDT Infusion [facility] at [address] [address] Shasta Barakat MBBS Examination prior to chemotherapy 05/30/2025 [facility] at [address] [address] Dolly Potts RN 05/29/2025 2:04 PM EDT - 05/29/2025 11:59 PM EDT Hospital Encounter [address] [address] Riya Carroll CNP Discharge Disposition: Home or Self Care 05/28/2025 Orders Only [facility] at [address] [address] Riya Carroll CNP Urinary frequency (Primary Dx) 05/23/2025 3:40 PM EDT Infusion [facility] at [address] [address] Shasta Barakat MBBS Malignant neoplasm of upper-outer quadrant of right breast in female, estrogen receptor positive (Primary Dx) 05/23/2025 Orders Only [facility] at [address] [address] Shasta Barakat MBBS 05/22/2025 1:20 PM EDT Infusion [facility] at [address] [address] Shasta Barakat MBBS Clark, Hanna Louise, TONIO Malignant neoplasm of upper-outer quadrant of right breast in female, estrogen receptor positive (Primary Dx); Examination prior to chemotherapy 05/22/2025 Orders Only [facility] at [address] [address] Inna Lentz FNP 05/19/2025 10:00 AM EDT Office Visit [facility] at [address] [address] Shasta Barakat MBBS Malignant neoplasm of upper-outer quadrant of right breast in female, estrogen receptor positive (Primary Dx) 05/19/2025 9:20 AM EDT Infusion [facility] at [address] [address] Shasta Barakat MBBS Zononi, Karen, RN Examination prior to chemotherapy 05/08/2025 3:00 PM EDT Infusion [facility] at [address] [address] Shasta Barakat MBBS Malignant neoplasm of upper-outer quadrant of right breast in female, estrogen receptor positive (Primary Dx) 05/08/2025 Orders Only [facility] at [address] [address] Inna Lentz FNP 05/07/2025 11:20 AM EDT Infusion [facility] at [address] [address] Shasta Barakat MBBS McHugh, Susan Amy, RN Malignant neoplasm of upper-outer quadrant of right breast in female, estrogen receptor positive (Primary Dx) 05/06/2025 11:30 AM EDT Office Visit [facility] at [address] [address] Riya Carroll, Inna Hemphill, CUT AND PRINT MACHINE OPERATOR Malignant neoplasm of upper-outer quadrant of right breast in female, estrogen receptor positive (Primary Dx); Vaginal irritation; Drug-induced constipation; Burning sensation of feet; Candidiasis of breast 05/06/2025 10:40 AM EDT Infusion [facility] at [address] [address] Shasta Barakat MBBS Examination prior to chemotherapy from Last 3 Months Immunizations Immunization Administration Dates Next Due COVID-19 (Pre-07/03) Pfizer Vaccine, mRNA, PF Influenza Quadrivalent w/ Preservative IM 2018 Pneumococcal polysaccharide PPSV23 09/21/2017 Pneumococcal, Unspecified Formulation 11/20/2001 Tdap 09/21/2017 Social History Tobacco Use Types Packs/Day Years Used Date Smoking Tobacco: Never Smokeless Tobacco: Never Tobacco Cessation:Counseling Given: Not Answered Education Answer Date Recorded Are you interested in more education? Not on kavya e 02/10/2025 Are you concerned about learning? Not on file 02/10/2025 No 02/10/2025 No 02/10/2025 Food Answer Date Recorded Within the past 6 months we worried whether our food would run out before we got money to buy more. Never True 06/17/2025 Within the past 6 months the food we bought just didn't last and we didn't have enough money to get more. Never True Residential Stability Answer Date Recor ded What is your housing situation today? I have [facility] 06/17/2025 How many times have you move d in the past 12 months? Zero (I did not move) 06/17/2025 Paying for Meds Answer Date Recorded Do you have trouble paying for medicines? No 06/17/2025 Paying Utility Bills Answer Date Record ed Do you have trouble paying your heating or elect ricity bill? No 06/17/2025 Transportation Answer Date Recorded Has the lack of transportati on kept you from medical appointments or from getting medications? No 06/17/2025 Digital Access Answer Date Recorded No 06/17/2025 Yes 06/17/2025 Do you have reliable internet access at home? Ye s 06/17/2025 Do you have a device (e.g., phone, tablet, computer) with a working camera? Yes 06/17/2025 Intimate Partner Violence Answer Date R ecorded Are you denied basic needs s uch as food, clothing, or medical care? No 06/17/2025 In the past 12 months have y ou been in a relationship with a person who hurts, threatens, or tries to control you? No 06/17/2025 Are you denied basic needs s uch as food, clothing, or medical care? No 06/17/2025 In the past 12 months have y ou been in a relationship with a person who hurts, threatens, or tries to control you? No 06/17/2025 Comments Unknown Sex and Gender Information Value Date Recorded Sex Assigned at Not on file Legal Sex Female 11:13 AM EDT Gender Identity Not on file Sexual Orientation Not on file Last Filed Vital Signs Vital Sign Reading Time Taken Comments Blood Pressure 145/77 07/23/2025 2:12 PM EST Pulse 84 07/23/2025 2:12 PM EST Temperature 37.2 C (98.9 F) 07/23/2025 2:12 PM EST Respiratory Rate 18 07/09/2025 10:00 AM EDT Oxygen Saturation 96% 07/23/2025 2:12 PM EST Inhaled Oxygen Concentration - - Weight 88.6 kg (195 lb 6.4 oz) 07/21/2025 1:27 P M EST Height 155 cm (5' 1.02 ) 07/21/2025 1:27 PM EST Body Mass Index 36.89 07/21/2025 1:27 PM EST Plan of Treatment Upcoming Encounters Date Type Department Care Team (Late st Contact Info) Description 08/04/2025 3:00 PM EST Infusion [facility] at [address] [address] Shasta Barakat MBBS [address] [place] [address] [email or web address] 08/04/2025 3:40 PM EST Office Visit [facility] at [address] [address] Shasta Barakat MBBS [address] [place] [address] [email or web address] 08/06/2025 10:00 AM EST Infusion [facility] at [address] [address] Shasta Barakat MBBS [address] [place] [address] [email or web address] Heide Macias, TONIO [address] [place] [address] [email or web address] 08/11/2025 8:00 AM EST Infusion [facility] at [address] [address] Shasta Barakat MBBS [address] [place] [address] [email or web address] Walt Armendariz RN [address] [place] [address] [email or web address] 08/11/2025 9:00 AM EST Office Visit [facility] at [address] [address] Shasta Barakat [address] [address] [email or web address] 08/11/2025 10:00 AM EST Infusion [facility] at [address] [address] Shasta Barakat [address] [address] [email or web address] Becka Veliz RN [address] [place] [address] [email or web address] 08/18/2025 11:20 AM EST Infusion [facility] at [address] [address] Shasta Barakat [address] [address] [email or web address] 08/18/2025 1:00 PM EST Office Visit [facility] at [address] [address] Shasta Barakat [address] [address] [email or web address] 08/18/2025 2:40 PM EST Infusion [facility] at [address] [address] Shasta Barakat [address] [address] [email or web address] Heide Macias RN [address] [place] [address] 08/25/2025 3:20 PM EST Infusion [facility] at [address] [address] Shasta Barakat, JOHN[address] [address] [email or web address] Angelica Manzano RN [address] [place] [phone] 08/25/2025 4:00 PM EST Office Visit [facility] at [address] [address] Shasta Barakta [address] [address] [email or web address] 08/26/2025 8:40 AM EST Infusion [facility] at [address] [address] Shasta Barakat MBBS [address] [place] [address] [email or web address] Maris Lima, TONIO [address] [place] [address] 08/29/2025 8:00 AM EST Infusion [facility] at [address] [address] Shasta Barakat, EHSAN [address] [place] [address] [email or web address] Adrianna Beltrán, TONIO [address] [place] [address] [email or web address] 08/29/2025 9:30 AM EST Office Visit [facility] at [address] [address] Gemma Cai, OSCAR [address] [place] [address] [email or web address] 09/01/2025 8:40 AM EST Infusion [facility] at [address] [address] Shasta Barakat, EHSAN [address] [place] [address] [email or web address] Pearl Saleem, RN [address] [place] [address] [email or web address] 09/05/2025 1:00 PM EST Infusion [facility] at [address] [address] Shasta Barakat, EHSAN [address] [place] [address] [email or web address] 09/05/2025 2:30 PM EST Office Visit [facility] at [address] [address] Gemma Cai, OSCAR [address] [place] [address] 09/08/2025 1:20 PM EST Infusion [facility] [place] [address] [place] [address] Shasta Barakat MBBS [address] [place] [address] [email or web address] Narayan Kumar, Pearl Bender, RN [address] [place] [address] [email or web address] Health Maintenance Due Date Last Done Comments LIPID PANEL 1954 DEPRESSION SCREENING 1966 HEPATITIS C SCREENING 1972 ZOSTER VACCINES (1 of 2) 1973 COLOGUARD 1999 COLONOSCOPY 1999 COLORECTAL CANCER SCREENING 1999 FIT TEST 1999 FOBT 1999 SIGMOIDOSCOPY 1999 VIRTUAL COLONOSCOPY 1999 RSV VACCINE (1 - Risk 50-74 years 1-dose series) 2004 PNEUMOCOCCAL VACCINES (50+ years) (2 of 2 - PCV) 09/21/2018 09/21/2017 OSTEOPOROSIS SCREENING INITIAL (ONE-TIME) 2019 INFLUENZA VACCINE (#1) 2025 07/08/2019 COVID-19 VACCINE (2 - season) 2025 12/07/2020 MAMMOGRAM 02/10/2027 02/10/2025, 0509/2024, 01/15/2025, Additional history exists Adult Td,Tdap Booster 09/21/2027 09/21/2017 SMOKING STATUS SCREENING (Once After 26 Yrs) Completed 07/21/2025 HEPATITIS A VACCINES Aged Out No long er eligible based on patient's age to complete this topic HIB VACCINES Aged Out No longer eligi ble based on patient's age to complete this topic MENINGOCOCCAL VACCINES (ACWY) Aged Out No longer eligible based on patient's age to complete this topic MENINGOCOCCAL VACCINES (B) Aged Out N o longer eligible based on patient's age to complete this topic Medical Devices Implanted Type Area Flatwork Ironer Device Identifier Shelf Expiration Date Model / Serial / Lot Port Low 6.6fr Profile Silicone Filled Suture Holes Triniflex Catheter [facility] [id number] Implanted:Qty : 1 on 03/31/2025 by Brigid Madison PA-C at [facility] Catheter Right: Chest [employer] [id number] 09/10/2029 [id number] / / [id number] Description:Catheter cut to 21 cm Procedures Procedure Name Priority Date/Time Associated Diagnosis Comments CBC AND DIFFERENTIAL Routine 07/21/2025 1:48 PM EST Malignant neoplasm of upper-outer quadrant of right breast in female, estrogen receptor positive COMPREHENSIVE METABOLIC PANEL (CMP) Routine 07/21/2025 1:48 PM EST Malignant neoplasm of upper-outer quadrant of right breast in female, estrogen receptor positive CBC AND DIFFERENTIAL Routine 07/21/2025 1:48 PM EST Malignant neoplasm of upper-outer quadrant of right breast in female, estrogen receptor positive CBC AND DIFFERENTIAL Routine 07/15/2025 9:57 AM EST Examination prior to chemotherapy CBC AND DIFFERENTIAL Routine 07/15/2025 9:57 AM EST Examination prior to chemotherapy COMPREHENSIVE METABOLIC PANEL (CMP) Routine 07/15/2025 9:57 AM EST Examination prior to chemotherapy CBC AND DIFFERENTIAL Routine 07/07/2025 1:51 PM EDT Examination prior to chemotherapy COMPREHENSIVE METABOLIC PANEL (CMP) Routine 07/07/2025 1:51 PM EDT Examination prior to chemotherapy CBC AND DIFFERENTIAL Routine 07/01/2025 12:12 PM EDT Examination prior to chemotherapy COMPREHENSIVE METABOLIC PANEL (CMP) Routine 07/01/2025 12:12 PM EDT Examination prior to chemotherapy CBC AND DIFFERENTIAL Routine 06/25/2025 9:08 AM EDT Examination prior to chemotherapy COMPREHENSIVE METABOLIC PANEL (CMP) Routine 06/25/2025 9:08 AM EDT Examination prior to chemotherapy CT CHEST WITH CONTRAST Routine 06/17/2025 6:24 PM EDT BLOOD CULTURE, ROUTINE STAT 06/17/2025 4:14 PM EDT XR CHEST PA AND LATERAL 2 VIEWS STAT 06/17/2025 3:48 PM EDT PT-INR STAT 06/17/2025 3:45 PM EDT LACTIC ACID (LACTATE) STAT 06/17/2025 3:45 PM EDT LIPASE STAT 06/17/2025 3:45 PM EDT LFTS (HEPATIC PANEL) STAT 06/17/2025 3:45 PM EDT MAGNESIUM STAT 06/17/2025 3:45 PM EDT BASIC METABOLIC PANEL (BMP) STAT 06/17/2025 3:45 PM EDT CBC AND DIFFERENTIAL STAT 06/17/2025 3:45 PM EDT BLOOD CULTURE, ROUTINE STAT 06/17/2025 3:45 PM EDT URINALYSIS WITH REFLEX TO URINE CULTURE STAT 06/17/2025 3:35 PM EDT COVID PANDEMIC RESPIRATORY VIRAL ORDER (PRO) STAT 06/17/2025 3:22 PM EDT ECG 12-LEAD STAT 06/17/2025 3:19 PM EDT CBC AND DIFFERENTIAL Routine 06/17/2025 1:08 PM EDT Examination prior to chemotherapy COMPREHENSIVE METABOLIC PANEL (CMP) Routine 06/17/2025 1:08 PM EDT Examination prior to chemotherapy CBC AND DIFFERENTIAL Routine 06/09/2025 1:11 PM EDT Examination prior to chemotherapy COMPREHENSIVE METABOLIC PANEL (CMP) Routine 06/09/2025 1:11 PM EDT Examination prior to chemotherapy COMPREHENSIVE METABOLIC PANEL (CMP) Routine 06/03/2025 1:10 PM EDT Examination prior to chemotherapy CBC AND DIFFERENTIAL Routine 06/03/2025 1:10 PM EDT Examination prior to chemotherapy URINALYSIS WITH REFLEX TO URINE CULTURE Routine 05/29/2025 2:48 PM EDT Urinary frequency COMPREHENSIVE METABOLIC PANEL (CMP) Routine 05/29/2025 2:41 PM EDT Examination prior to chemotherapy CBC AND DIFFERENTIAL Routine 05/29/2025 2:41 PM EDT Examination prior to chemotherapy CBC AND DIFFERENTIAL Routine 05/19/2025 9:09 AM EDT Examination prior to chemotherapy COMPREHENSIVE METABOLIC PANEL (CMP) Routine 05/19/2025 9:09 AM EDT Examination prior to chemotherapy CBC AND DIFFERENTIAL Routine 05/06/2025 10:24 AM EDT Examination prior to chemotherapy COMPREHENSIVE METABOLIC PANEL (CMP) Routine 05/06/2025 10:24 AM EDT Examination prior to chemotherapy HM MAMMOGRAPHY Routine 02/10/2025 12:36 PM EDT from Last 3 Months or Most Recently Relevant to Health Maintenance Results * (ABNORMAL) Comprehensive Metabolic Panel (CMP) (07/21/2025 1:48 PM EST) Only the most recent of11 resultswithin the time period is included. [facility] Sodium 137 136 - 145 mmol/L 07/21/2025 2:57 PM EST [facility] Potassium 4.5 3.4 - 5.1 mmol/L 07/21/2025 2:57 PM [facility] Chloride 101 98 - 107 mmol/L 07/21/2025 2:57 PM [facility] CO2 27 20 - 31 mmol/L 07/21/2025 2:57 PM [facility] Anion Gap 9 3 - 17 mmol/L 07/21/2025 2:57 PM [facility] BUN 17 6 - 23 mg/dL 07/21/2025 2:57 PM [facility] Creatinine 0.70 0.50 - 1.00 mg/dL 07/21/2025 2:57 PM [facility] eGFR 93 >59 mL/min/1.7 3m2 07/21/2025 2:57 PM [facility] Comment:Estimated glomerular filtration rate calculated using the CKD-EPI refit equation. Glucose 112(H) 70 - 99 mg/dL 07/21/2025 2:57 PM [facility] Calcium 9.0 8.5 - 10.5 mg/dL 07/21/2025 2:57 PM [facility] AST 14 <33 U/L 07/21/2025 2:57 PM [facility] ALT 15 <34 U/L 07/21/2025 2:57 PM [facility] Alkaline Phosphatase 92 40 - 130 U/L 07/21/2025 2:57 PM [facility] Bilirubin, Total 0.2 0.0 - 1.2 mg/dL 07/21/2025 2:57 PM [facility] Total Protein 6.3(L) 6.4 - 8.3 g/dL 07/21/2025 2:57 PM [facility] Albumin 3.8 3.5 - 5.2 g/dL 07/21/2025 2:57 PM [facility] Globulin 2.5 1.9 - 4.1 g/dL 07/21/2025 2:57 PM [facility] Blood (Blood) Venipuncture / Unknown 07/21/2025 1:48 PM EST 07/21/2025 1:59 PM EST Ahmad D Barakat MBBS LAB BLOOD BKR ORDERABLES F inal Result [facility] [address] [place] [address] * (ABNORMAL) CBC and Differential (07/21/2025 1:48 PM EST) Only the most recent of2 resultswithin the time period is included. WBC 3.29(L) 4.00 - 11.00 K/uL 07/21/2025 2:02 PM [facility] RBC 3.52(L) 4.00 - 5.20 M/uL 07/21/2025 2:02 PM [facility] Hemoglobin 10.5(L) 12.0 - 16.0 g/dL 07/21/2025 2:02 PM [facility] Hematocrit 34.2(L) 36.0 - 46.0 % 07/21/2025 2:02 PM [facility] MCV 97.2 80.0 - 100.0 fL 07/21/2025 2:02 PM [facility] MCH 29.8 27.0 - 31.0 pg 07/21/2025 2:02 PM [facility] MCHC 30.7(L) 32.0 - 36.0 g/dL 07/21/2025 2:02 PM [facility] MPV 10.1 8.4 - 12.0 fL 07/21/2025 2:02 PM [facility] RDW-CV 16.9(H) 11.5 - 14.5 % 07/21/2025 2:02 PM [facility] PLT 282 150 - 450 K/uL 07/21/2025 2:02 PM [facility] Neutrophils 62.6 % 07/21/2025 2:02 PM [facility] Lymphocytes 22.2 % 07/21/2025 2:02 PM [facility] Monocytes 5.5 % 07/21/2025 2:02 PM [facility] Eosinophils 8.5 % 07/21/2025 2:02 PM [facility] Basophils 0.9 % 07/21/2025 2:02 PM [facility] Imm Grans 0.3 % 07/21/2025 2:02 PM [facility] NRBC 0.0 <=0.0 /100 WBCs 07/21/2025 2:02 PM [facility] Absolute Neutrophils 2.06 1.92 - 7.60 K/uL 07/21/2025 2:02 PM [facility] Absolute Lymphocytes 0.73 0.72 - 4.10 K/uL 07/21/2025 2:02 PM [facility] Absolute Monocytes 0.18 0.16 - 1.10 K/uL 07/21/2025 2:02 PM [facility] Absolute Eosinophils 0.28 0.00 - 0.50 K/uL 07/21/2025 2:02 PM [facility] Absolute Basophils 0.03 0.00 - 0.15 K/uL 07/21/2025 2:02 PM [facility] Absolute Imm Grans 0.01 0.00 - 0.09 K/uL 07/21/2025 2:02 PM [facility] Absolute NRBC 0.00 <=0.00 K cells/uL 07/21/2025 2:02 PM [facility] Absolute Neutrophils 2.06 1.92 - 7.60 K/uL 07/21/2025 2:02 PM [facility] Comment:Automated cell count . Manual ANC may differ if performed. Diff Type Auto 07/21/2025 2:02 PM [facility] Blood (Blood) Venipuncture / Unknown 07/21/2025 1:48 PM EST 07/21/2025 1:59 PM EST us Shasta LOPEZBS LAB BLOOD BKR ORDERABLES F inal Result [facility] [address] [place] [address] * (ABNORMAL) CBC and differential (07/07/2025 1:51 PM EDT) Only the most recent of10 resultswithin the time period is included. WBC 9.35 4.00 - 11.00 K/uL [facility] RBC 3.35(L) 4.00 - 5.20 M/uL [facility] HGB 9.8(L) 12.0 - 16.0 g/dL [facility] HCT 31.9(L) 36.0 - 46.0 % [facility] PLT 356 150 - 450 K/uL [facility] MCV 95.2 80.0 - 100.0 fL [facility] MCH 29.3 27.0 - 31.0 pg [facility] MCHC 30.7(L) 32.0 - 36.0 g/dL [facility] RDW 16.4(H) 11.5 - 14.5 % [facility] MPV 10.1 8.4 - 12.0 fL [facility] NRBC 0.00 0.00 /100 WBCs [facility] ABSOLUTE NRBC 0.00 0.00 K/uL [facility] DIFF METHOD Manual [facility] TOTAL CELLS COUNTED 100 [facility] NEUTS 69.0 48.0 - 76.0 % [facility] LYMPHS 8.0(L) 18.0 - 41.0 % [facility] MONOS 2.0(L) 4.0 - 11.0 % [facility] EOS 21.0(H) 0.0 - 5.0 % [facility] ABSOLUTE NEUTS 6.45 1.92 - 7.60 K/uL [facility] ABSOLUTE LYMPHS 0.75 0.72 - 4.10 K/uL [facility] ABSOLUTE MONOS 0.19 0.16 - 1.10 K/uL [facility] ABSOLUTE EOS 1.96(H) 0.00 - 0.50 K/uL [facility] Blood 07/07/2025 1:51 PM EDT 07/07/2025 2:07 PM EDT us Riya Carroll CNP LAB BLOOD BKR ORDERABLES Final R esult [facility] [address] [place] [address] * CT CHEST WITH CONTRAST (06/17/2025 6:24 PM EDT) Anatomical Region Laterality Modality Chest Computed Tomogra phy 06/17/2025 9:08 PM EDT Impressions 06/17/2025 9:17 PM EDT 1. Small right pleural effusion. Mild bilateral lower lobe atelectasis. 2. Small pericardial effusion. 3. Old left rib fractures. 4. Narrative 06/17/2025 9:[address] CHEST WITH CONTRAST Referring clinician's provided indication for this examination in [facility]: * Pneumonia, effusion or abscess suspected, xray done; fever, h/o breast cancer. abnormal cxr, CT recommended. TECHNIQUE: Multidetector CT of the chest was performed with intravenous contrast using tailored dose modulation techniques. Thin inspiratory, expiratory and inspiratory prone images were obtained as part of a high-resolution chest CT protocol. COMPARISON: Plain film from the same day FINDINGS: Devices/Tubes/Lines: Right Mediport catheter terminates at the SVC/RA junction. Lungs: Mild bilateral lower lobe atelectasis. There is also mild dependent atelectasis in the upper lobes. Mild bronchial thickening, suggests mild inflammation. No endobronchial lesion. Pleura: Small right pleural effusion. No pneumothorax. Mediastinum: The heart is normal in size. Small pericardial effusion. And pulmonary arteries are normal in size. Small hiatal hernia. Lymph Nodes: Small mediastinal nodes are present but not pathologically enlarged. Upper Abdomen: No acute abnormality in the upper abdomen. Chest Wall: No chest wall mass or adenopathy. Bones: Degenerative changes of the spine. Old left posterior sixth, seventh, eighth, ninth, 10th rib fractures. No acute osseous adenopathy. Procedure Note Angelnia Camarillo MD, PhD - 06/17/2025 CT CHEST WITH CONTRAST Referring clinician's provided indication for this examination in [facility]: *Pneumonia, effusion or abscess suspected, xray done; fever, h/o breastcancer. abnormal cxr, CT recommended. TECHNIQUE: Multidetector CT of the chest was performed with intravenouscontrast using tailored dose modulation techniques. Thin inspiratory,expiratory and inspiratory prone images were obtained as part of ahigh-resolution chest CT protocol. COMPARISON: Plain film from the same day FINDINGS: Devices/Tubes/Lines: Right Mediport catheter terminates at the SVC/RAjunction. Lungs: Mild bilateral lower lobe atelectasis. There is also mild dependentatelectasis in the upper lobes. Mild bronchial thickening, suggests mildinflammation. No endobronchial lesion. Pleura: Small right pleural effusion. No pneumothorax. Mediastinum: The heart is normal in size. Small pericardial effusion. Andpulmonary arteries are normal in size. Small hiatal hernia. Lymph Nodes: Small mediastinal nodes are present but not pathologicallyenlarged. Upper Abdomen: No acute abnormality in the upper abdomen. Chest Wall: No chest wall mass or adenopathy. Bones: Degenerative changes of the spine. Old left posterior sixth,seventh, eighth, ninth, 10th rib fractures. No acute osseous adenopathy. IMPRESSION: 1. Small right pleural effusion. Mild bilateral lower lobe atelectasis. 2. Small pericardial effusion. 3. Old left rib fractures. 4. us Leopoldo Willingham MD IMG CT CHEST Final Re sult * Blood Culture, Routine (06/17/2025 4:14 PM EDT) Only the most recent of2 resultswithin the time period is included. Special Requests None 06/17/2025 3:22 PM EDT [facility] BLOOD CULTURE NO GROWTH 5 DAYS 06/22/2025 4:40 PM EDT [facility] Blood (Blood) 06/17/2025 4:1 4 PM EDT 06/17/2025 4:19 PM EDT us Richard Styles MD LAB MICROBIOLOGY CULTURE OR DERABLES Final Result [facility] [address], [place] [id number] * XR CHEST PA AND LATERAL 2 VIEWS (06/17/2025 3:48 PM EDT) Anatomical Region Laterality Modality Chest Computed Radiogr aphy Impressions 06/17/2025 4:01 PM EDT Ill-defined opacities within the left lung may be infectious however given the history of breast cancer and no prior imaging available for comparison, further evaluation with a CT scan of the chest is recommended. Narrative 06/17/2025 4:01 PM EDT XR CHEST PORTABLE Referring clinician's provided indication for this examination in Epic: Fever COMPARISON: None FINDINGS: Devices/Tubes/Lines: The tip of the right chest wall Port-A-Cath projects over the cavoatrial junction. Lungs: Ill-defined opacities within the left lung. Pleura: No pleural effusion or pneumothorax. Heart/Mediastinum: The size of the cardiac silhouette is within normal limits. Bones/Soft Tissues: Chronic fracture deformity of the left posterior sixth rib. Richard Styles MD IMG XR CHEST Edited Resu lt - Final * (ABNORMAL) LFTs (hepatic panel) (06/17/2025 3:45 PM EDT) ALKALINE PHOSPHATASE 83 39 - 117 U/L [facility] TOTAL BILIRUBIN 0.3 0.0 - 1.2 mg/dL [facility] DIRECT BILIRUBIN 0.1 0.0 - 0.2 mg/dL [facility] Bilirubin (Indirect) NOT CALCULATED 0 - 1.5 mg/dL [facility] AST 19 0 - 37 U/L [facility] ALT 24 0 - 40 U/L [facility] TOTAL PROTEIN 6.7 6.5 - 8.0 g/dL [facility] ALBUMIN 3.8(L) 3.9 - 4.8 g/dL [facility] GLOBULIN 2.9 1 - 4.8 g/dL [facility] A/G Ratio 1.31 1.00 - 4.80 RATIO [facility] Blood 06/17/2025 3:45 PM EDT 06/17/2025 4:21 PM EDT Richard Styles MD LAB BLOOD BKR ORDERABLES Fi nal Result [facility] [address] [place] [address] * PT-INR (06/17/2025 3:45 PM EDT) PT 12.1 10.2 - 12.9 sec [facility] INR 1.0 0.9 - 1.1 [facility] Comment:Therapeutic range fo r oral Vitamin K antagonists: 2.0-3.5 Blood 06/17/2025 3:45 PM EDT 06/17/2025 4:21 PM EDT us Richard Styles MD LAB BLOOD BKR ORDERABLES Fi nal Result [address] [address] * Magnesium (06/17/2025 3:45 PM EDT) MAGNESIUM 2.1 1.6 - 2.6 mg/dL [facility] Blood 06/17/2025 3:45 PM EDT 06/17/2025 4:21 PM EDT Richard Styles MD LAB BLOOD BKR ORDERABLES Fi nal Result Performing Organization Address [facility]/ZIP Co de Phone Number [address] [address] * Lipase (06/17/2025 3:45 PM EDT) LIPASE 18 16 - 63 U/L [facility] Blood 06/17/2025 3:45 PM EDT 06/17/2025 4:21 PM EDT Richard Styles MD LAB BLOOD BKR ORDERABLES Fi nal Result Performing Organization Address City/[facility]/ZIP Co de Phone Number [address] [address] * Lactate (06/17/2025 3:45 PM EDT) LACTATE 1.22 0.50 - 2.20 mmol/L [facility] Blood 06/17/2025 3:45 PM EDT 06/17/2025 4:19 PM EDT Richard Styles MD LAB BLOOD BKR ORDERABLES Fi nal Result Performing Organization Address [facility] Co de Phone Number [address] [address] * (ABNORMAL) Basic metabolic panel (06/17/2025 3:45 PM EDT) SODIUM 135 133 - 146 mmol/L [facility] CHLORIDE 99 96 - 108 mmol/L [facility] POTASSIUM 4.4 3.3 - 5.1 mmol/L [facility] CO2 26 21 - 35 mmol/L [facility] BUN 15 6 - 19 mg/dL [facility] CREATININE 0.80 0.5 - 1.5 mg/dL [facility] GLUCOSE 124(H) 70 - 99 mg/dL [facility] CALCIUM 9.6 8.4 - 10.3 mg/dL [facility] EGFR 79 >59 mL/min/1.7 3m2 [facility] Comment:Estimated glomerular filtration rate calculated using the CKD-EPI refit equation. ANION GAP 14 10 - 20 mmol/L [facility] Blood 06/17/2025 3:45 PM EDT 06/17/2025 4:21 PM EDT Richard Styles MD LAB BLOOD BKR ORDERABLES Fi nal Result Performing Organization Address [facility]/ZIP Co de Phone Number [address] [address] * (ABNORMAL) Urinalysis w/reflex Urine Culture (06/17/2025 3:35 PM EDT) Only the most recent of2 resultswithin the time period is included. COLOR Yellow Yellow [facility] CLARITY Clear [facility] GLUCOSE Negative Negative [facility] BILI Negative Negative [facility] KETONES Trace(A) Negative [facility] SPECIFIC GRAVITY 1.020 1.005 - 1.030 [facility] BLOOD Negative Negative [facility] PH 5.5 5.0 - 8.0 [facility] Protein-UA Negative Negative [facility] NITRITE Negative Negative [facility] Leukocyte esterase, ur Negative Negative [facility] Urine (Urine) 06/17/2025 3:3 5 PM EDT 06/17/2025 3:41 PM EDT Richard Styles MD LAB URINE ORDERABLES Final Result Performing Organization Address [facility] de Phone Number [address] [address] * COVID Pandemic Respiratory Viral Order (PRO) (06/17/2025 3:22 PM EDT) Test Ordered Rapid COVID has been ordered [facility] Specimen Source/Description NASAL [facility] SARS-CoV 2 (COVID-19) PCR Not Detected Not Detected [facility] Comment: SARS-CoV-2 not detected Negative results do not preclude SARS-CoV-2 infection and should not be used as the sole basis for patient management decisions. Negative results must be combined with clinical observations, patient history, and epidemiological information. Other (Nasopharyngeal swab) 06/17/2025 3:22 PM EDT 06/17/2025 3:27 PM EDT Richard Styles MD LAB GENERAL ORDERABLES Frida l Result Performing Organization Address [facility] de Phone Number [address] [address] * ECG 12-LEAD (06/17/2025 3:19 PM EDT) Ventricular Rate EKG/MIN 96 BPM [facility] Atrial Rate 96 BPM [facility] IL Interval 118 ms [facility] QRS Duration 70 ms [facility] QT Interval 348 ms [facility] QTC Interval 439 ms [facility] P [place] 50 degrees [facility] R Wave [place] 15 degrees [facility] T Wave [place] 19 degrees [facility] 06/17/2025 3:19 PM EDT 06/18/2025 8:56 AM EDT Narrative [facility] - 06/18/2025 8:56 AM EDT Normal sinus rhythm Normal ECG No previous ECGs available Confirmed by Blake Condon ([id number]) on 06/18/2025 8:56:27 AM us Richard Styles MD ECG ORDERABLES Final Resul t [facility] * MAMMOGRAPHY FOR RESULT ENTRY ONLY (02/10/2025 12:36 PM EDT) us Historical Provider HEALTH MAINTENANCE Final Result from Last 3 Months or Most Recently Relevant to Health Maintenance [place] [address] [place] [address] [place] [address] [place] [address] HEALTH PLAN [facility] [place] [place] [address] PLAN [facility] HEALTH PLAN Care Teams Director Emergency Relationship Specialty Start Date End Date Dereck Dasilva MD [address] [place] [address] PCP - General Internal Medicine 03/06/25 Shasta Barakat MBBS [address] [place] [address] [email or web address] Primary Oncologist Medical Oncology 02/10/25 Riya Carroll CNP [address] [place] [phone] [email or web address] Nurse Practitioner Medical Oncology 03/31/25 Inna Lentz FNP [address] [place] [address] [email or web address] Registered Nurse Nurse Practitioner 04/29/25 Gemma Cai NP [address] [place] [address] [email or web address] Nurse Practitioner Nurse Practitioner 07/21/25 Additional Source Comments The information contained in this document represents components of the legal health record. It is not the complete legal health record.[facility]
--- OUTSIDE RECORDS SUMMARY | 2025-08-01 15:19 | XMS_ITS | Encounter Summary ---
Author Organization [facility] Address [address] [facility] [address] [place] [address] Phone Care Team Providers Care Sewage Reticulation Drafting Officer Name Role Phone Georges Chen MD Primary Care Provider [phone] Shasta Barakat MBBS Unavailable Dereck Dasilva MD Primary Care Provider [phone] Riya Carroll LEASE ADMINISTRATION ANALYST Unavailable Inna Lentz BOILERMAKER FITTER Unavailable [phone] Gemma Cai CELLULAR EQUIPMENT REPAIRER Unavailable Encounter Details Date Type Department Care Team (Latest Contact Info) Description 01/18/2016 Transcribe Orders [facility] Vestibular Lab [address] [address] Oziel Swartz MD [address] [place] [phone] [email or web address] Vertigo (Primary Dx) Social History Tobacco Use [...] Info) Description 08/04/2025 3:00 PM EST Infusion [facility] at [address] [address] Shasta Barakat MBBS [address] [place] [phone] [email or web address] 08/04/2025 3:40 PM EST Office Visit [facility] at [address] [address] Shasta Barakat, EHSAN [address] [place] [phone] [email or web address] 08/06/2025 10:00 AM EST Infusion [facility] at [address] [address] Shasta Barakat MBBS [address] [place] [address] [email or web address] Heide Macias RN [address] [place] [phone] [email or web address] 08/11/2025 8:00 AM EST Infusion [facility] at [address] [address] Shasta Barakat MBBS [address] [place] [address] [email or web address] Walt Armendariz RN [address] [place] [phone] [email or web address] 08/11/2025 9:00 AM EST Office Visit [facility] at [address] [address] Shasta Barakat MBBS [address] [place] [phone] [email or web address] 08/11/2025 10:00 AM EST [facility]fusion [facility] at [address] [address] Shasta Barakat, [address] [address] [email or web address] Becka Veliz, TONIO [address] [place] [phone] 08/18/2025 11:20 AM EST Infusion [facility] at [address] [address] Shasta Barakat, [address] [address] [email or web address] 08/18/2025 1:00 PM EST Office [facility] at [address] [address] Shasta Barakat, [address] [address] [email or web address] 08/18/2025 2:40 PM EST Infusion [facility] at [address] [address] Shasta Barakat, [address] [address] [email or web address] Heide Macias, TONIO [address] [place] [phone] 08/25/2025 3:20 PM EST Infusion [facility] at [address] [address] Shasta Barakat MBBS [address] [place] [address] [email or web address] Angelica Manzano RN [address] [place] [phone] [email or web address] 08/25/2025 4:00 PM EST Office Visit [facility] at [address] [address] Shasta Barakat MBBS [address] [place] [phone] [email or web address] 08/26/2025 8:40 AM EST Infusion [facility] at [address] [address] Shasta Barakat MBBS [address] [place] [phone] [email or web address] Maris Lima, TONIO [address] [place] [address] [email or web address] 08/29/2025 8:00 AM EST Infusion [facility] at [address] [address] Shasta Barakat MBBS [address] [place] [address] [email or web address] Adrianna Beltrán, TONIO [address] [place] [phone] [email or web address] 08/29/2025 9:30 AM EST Office [facility] at [address] [address] Gemma Cai, OSACR [address] [place] [address] [email or web address] 09/01/2025 8:40 AM EST Infusion [facility] at [address] [address] Shasta Barakat MBBS [address] [place] [address] [email or web address] Pearl Saleem RN [address] [place] [address] [email or web address] 09/05/2025 1:00 PM EST Infusion [facility] at [address] [address] Shasta Barakat MBBS [address] [place] [address] [email or web address] 09/05/2025 2:30 PM EST Office [facility] at [address] [address] Gemma Cai, OSCAR [address] [place] [address] [email or web address] 09/08/2025 1:20 PM EST Infusion [facility] at [address] [address] Shasta Barakat MBBS [address] [place] [address] [email or web address] Pearl Saleem, TONIO [address] [place] [phone] documented as of this encounter Visit Diagnoses Diagnosis Vertigo- Primary Dizziness and giddiness Malignant neoplasm of upper-outer quadrant of right breast in female, estrogen receptor positive- Primary documented in this encounter Additional Health Concerns Infection Onset Date Last Indicated Resolved Time CoV-Risk 06/17/2025 06/17/2025 06/28/2025 1:21 AM EDT documented as of this encounter Care Teams Sewage Reticulation Drafting Officer Relationship Specialty Start Date End Date Georges Chen MD [address] [place] [phone] PCP - General Internal Medicine 01/06/16 03/05/25 Dereck Dasilva MD [address] [place] [address] PCP - General Internal Medicine 03/06/25 Shasta Barakat MBBS [address] [place] [address] [email or web address] Primary Oncologist Medical Oncology 02/10/25 Riya Carroll CNP [address] [place] [address] Nurse Practitioner Medical Oncology 03/31/25 Inna Lentz FNP [address] [place] [address] Registered Nurse Nurse Practitioner 04/29/25 Gemma Cai, OSCAR [address] [place] [address] Nurse Practitioner Nurse Practitioner 07/21/25 documented as of this encounter Additional Source Comments The information contained in this document represents components of the legal health record. It is not the complete legal health record.[facility]
--- OUTSIDE RECORDS SUMMARY | 2025-08-01 15:20 | XMS_ITS | Encounter Summary ---
Author Organization [facility] Address [address] [place] [address] Phone Care Team Providers Care Ocean Import Representative Name Role Phone Shasta Barakat MBBS Unavailable Dereck Dasilva MD Primary Care Provider [phone] Riya Carroll DOUBLING MACHINE OPERATOR Unavailable Inna Lentz BLEACHER SULFITE PULP Unavailable [phone] Gemma Cai MISCELLANEOUS MACHINE OPERATOR Unavailable Encounter Details Date Type Department Care Team (Late st Contact Info) Description 03/13/2025 Procedure Pass [facility] [address] [place] [address] Social History Tobacco Use Types Packs/Day Years Used Date Smoking Tobacco: Never Smokeless Tobacco: Never Education Answer Date Recorded Are you interested in more education? Not on kavya e 02/10/2025 Are you concerned about learning? Not on file 02/10/2025 No 02/10/2025 No 02/10/2025 Digital Access Answer Date Recorded No 02/10/2025 No 02/10/2025 Reliable internet access at home? Not on file 02/10/2025 Device with a working camera? Not on file Comments Unknown Sex and Gender Information Value Date Recorded Sex Assigned at Not on file Legal Sex Female 11:13 AM EDT Gender Identity Not on file Sexual Orientation Not on file documented as of this encounter Plan of Treatment Upcoming Encounters Date Type Department Care Team (Late st Contact Info) Description 08/04/2025 3:00 PM EST Infusion [facility] at [address] [address] Shasta Barakat [address] [address] [email or web address] 08/04/2025 3:40 PM EST Office Visit [facility] at [address] [address] Shasta Barakat, JOHN[address] [address] [email or web address] 08/06/2025 10:00 AM EST Infusion [facility] at [address] [address] Shasta Barakat [address] [address] [email or web address] Heide Macias, TONIO [address] [place] [address] [email or web address] 08/11/2025 8:00 AM EST Infusion [facility] at [address] [address] Shasta Barakat, JOHN[address] [address] [email or web address] Walt Armendariz RN [address] [place] [address] [email or web address] 08/11/2025 9:00 AM EST Office Visit [facility] Center at [address] [address] Shasta Barakat, JOHN[address] [address] [email or web address] 08/11/2025 10:00 AM EST Infusion [facility] Center at [address] [address] Shasta Barakat, JOHN[address] [address] [email or web address] Becka Veliz RN [address] [place] [address] [email or web address] 08/18/2025 11:20 AM EST Infusion [facility] Center at [address] [address] Shasta Barakat, JOHN[address] [address] [email or web address] 08/18/2025 1:00 PM EST Office Visit [facility] Center at [address] [address] Shasta Barakat [address] [address] [email or web address] 08/18/2025 2:40 PM EST Infusion [facility] at [address] [address] Shasta Barakat [address] [address] [email or web address]@[facility] Heide Macias, TONIO [address] [place] [address] 08/25/2025 3:20 PM EST Infusion [facility] at [address] [address] Shasta Barakat [address] [address] [email or web address]@[facility] Angelica Manzano RN [address] [place] [address] 08/25/2025 4:00 PM EST Office Visit [facility] at [address] [address] Shasta Barakat [address] [address] [email or web address] 08/26/2025 8:40 AM EST Infusion [facility] at [address] [address] Shasta Barakat [address] [address] [email or web address] Maris Lima RN [address] [place] [address] [email or web address] 08/29/2025 8:00 AM EST Infusion [facility] at [address] [address] Shasta Barakat [address] [address] [email or web address] Adrianna Beltrán RN [address] [place] [address] 08/29/2025 9:30 AM EST Office Visit [facility] at [address] [address] Gemma Cai, OSCAR [address] [place] [address] [email or web address] 09/01/2025 8:40 AM EST Infusion [facility] at [address] [address] Shasta Barakat, EHSAN [address] [place] [address] [email or web address] Pearl Saleem, TONIO [address] [place] [address] [email or web address] 09/05/2025 1:00 PM EST Infusion [facility] at [address] [address] Shasta Barakat MBBS [address] [place] [address] [email or web address]@[facility] 09/05/2025 2:30 PM EST Office Visit [facility] at [address] [address] Gemma Cai, OSCAR [address] [place] [address] [email or web address] 09/08/2025 1:20 PM EST Infusion [facility] at [address] [address] Shasta Barakat MBBS [address] [place] [address] [email or web address]@[email or web address] Pearl Saleem, RN [address] [place] [address] [email or web address] documented as of this encounter Visit Diagnoses Not on filedocumented in this encounter Additional Health Concerns Infection Onset Date Last Indicated Resolved Time CoV-Risk 06/17/2025 06/17/2025 06/28/2025 1:21 AM EDT documented as of this encounter Care Teams Ocean Import Representative Relationship Specialty Start Date End Date Dereck Dasilva MD [address] [place] [address] PCP - General Internal Medicine 03/06/25 Shasta Barakat MBBS [address] [place] [address] [email or web address] Primary Oncologist Medical Oncology 02/10/25 Riya Carroll CNP [address] [place] [address] [email or web address] Nurse Practitioner Medical Oncology 03/31/25 Inna Lentz FNP [address] [place] [address] [email or web address] Registered Nurse Nurse Practitioner 04/29/25 Gemma Cai NP [address] [place] [address] [email or web address] Nurse Practitioner Nurse Practitioner 07/21/25 documented as of this encounter Additional Source Comments The information contained in this document represents components of the legal health record. It is not the complete legal health record.[facility]
--- OUTSIDE RECORDS SUMMARY | 2025-08-01 15:20 | XMS_ITS | Encounter Summary ---
Author Organization [facility] Address [address] [place] [address] Phone Care Team Providers Care Web Marketing Assistant Name Role Phone Shasta Barakat MBBS Unavailable Dereck Dasilva MD Primary Care Provider Riya Carroll SUPREME COURT JUDGE Unavailable Inna Lentz GAMBLING DEALER Unavailable Gemma Cai SIGNALS COLLECTION TECHNICIAN Unavailable Encounter Details Date Type Department Care Team (Late st Contact Info) Description 07/16/2025 Orders Only [facility] at [address] [address] [email or web address] Malignant neoplasm of upper-outer quadrant of right breast in female, estrogen receptor positive (Primary Dx) Social History Tobacco Use Types [...] your housing situation today? I have [facility] 06/17/2025 How many times have you move [...] Info) Description 08/04/2025 3:00 PM EST Infusion [facility] at [address] [address] Shasta Barakat, JOHN [address] [place] [address] [email or web address] 08/04/2025 3:40 PM EST Office Visit [facility] at [address] [address] Shasta Barakat, [address] [address] [email or web address] 08/06/2025 10:00 AM EST Infusion [facility] at [address] [address] Shasta Barakat, JOHN[address] [address] [email or web address] Heide Macias, TONIO [address] [place] [address] [email or web address] 08/11/2025 8:00 AM EST Infusion [facility] at [address] [address] Shasta Barakat, JOHN[address] [address] [email or web address]@[email or web address] Walt Armendariz RN [address] [place] [address] [email or web address] 08/11/2025 9:00 AM EST Office Visit [facility] at [address] [address] Shasta Barakat, EHSAN [address] [place] [address] [email or web address] 08/11/2025 10:00 AM EST Infusion [facility] at [address] [address] Shasta Barakat, EHSAN [address] [place] [address] [email or web address]@[facility] Becka Veliz, TONIO [address] [place] [address] [email or web address] 08/18/2025 11:20 AM EST Infusion [facility] at [address] [address] Shasta Barakat, [address] [address] [email or web address] 08/18/2025 1:00 PM EST Office Visit [facility] at [address] [address] Shasta Barakat, JOHN[address] [address] [email or web address]@[facility] 08/18/2025 2:40 PM EST Infusion [facility] at [address] [address] Shasta Barakat, JOHN[address] [address] [email or web address] Heide Macias, TONIO [address] [place] [address] [email or web address] 08/25/2025 3:20 PM EST Infusion [facility] at [address] [address] Shasta Barakat, JOHN[address] [address] [email or web address]@[facility] Angelica Manzano RN [address] [place] [address] [email or web address] 08/25/2025 4:00 PM EST Office Visit [facility] at [address] [address] Shasta Barakat MBBS [address] [place] [address] [email or web address] 08/26/2025 8:[address] [facility] at [address] [address] Shasta Barakat MBBS [address] [place] [address] [email or web address]@[facility] Maris Lima, TONIO [address] [place] [address] 08/29/2025 8:[address] [facility] at [address] [address] Shasta Barakat MBBS [address] [place] [address] [email or web address] Adrianna Beltrán, TONIO [address] [place] [address] 08/29/2025 9:30 AM EST Office Visit [facility] at [address] [address] Gemma Cai NP [address] [place] [address] 09/01/2025 8:40 AM EST Infusion [facility] at [address] [address] Shasta Barakat [address] [address] [email or web address] Pearl Saleem RN [address] [place] [address] 09/05/2025 1:[address] [facility] at [address] [address] Shasta Barakat [address] [address] [email or web address] 09/05/2025 2:30 PM EST Office Visit [facility] Center at [address] [address] Gemma Cai, OSCAR [address] [place] [address] [email or web address] 09/08/2025 1:20 PM EST Infusion [facility] at [address] [address] Shasta Barakat [address] [address] [email or web address] Pearl Saleem, TONIO [address] [place] [address] [email or web address] documented as of this encounter Results * (ABNORMAL) Comprehensive Metabolic Panel (CMP) (07/21/2025 1:48 PM EST) Sodium 137 136 - 145 mmol/L 07/21/2025 2:57 PM [facility] Potassium 4.5 3.4 - 5.1 mmol/L 07/21/2025 2:57 PM [facility] Chloride 101 98 - 107 mmol/L 07/21/2025 2:57 PM [facility] CO2 27 20 - 31 mmol/L 07/21/2025 2:57 PM [facility] Anion Gap 9 3 - 17 mmol/L 07/21/2025 2:57 PM [facility] BUN 17 6 - 23 mg/dL 07/21/2025 2:57 PM [facility] Creatinine 0.70 0.50 - 1.00 mg/dL 07/21/2025 2:57 PM [facility] eGFR 93 >59 mL/min/1.7 3m2 07/21/2025 2:57 PM [facility] Comment:Estimated glomerular filtration rate calculated using the CKD-EPI refit equation. Glucose 112(H) 70 - 99 mg/dL 07/21/2025 2:57 PM [facility] Calcium 9.0 8.5 - 10.5 mg/dL 07/21/2025 2:57 PM [facility] AST 14 <33 U/L 07/21/2025 2:57 PM [facility] ALT 15 <34 U/L 07/21/2025 2:57 PM [facility] Alkaline Phosphatase 92 40 - 130 U/L 07/21/2025 2:57 PM [facility] Bilirubin, Total 0.2 0.0 - 1.2 mg/dL 07/21/2025 2:57 PM [facility] Total Protein 6.3(L) 6.4 - 8.3 g/dL 07/21/2025 2:57 PM [facility] Albumin 3.8 3.5 - 5.2 g/dL 07/21/2025 2:57 PM [facility] Globulin 2.5 1.9 - 4.1 g/dL 07/21/2025 2:57 PM [facility] Blood (Blood) Venipuncture / Unknown 07/21/2025 1:48 PM EST 07/21/2025 1:59 PM EST Shasta MOSER LAB BLOOD BKR ORDERABLES F inal Result [address] [address] documented in this encounter Visit Diagnoses Diagnosis Malignant neoplasm of upper-outer quadrant of right breast in female, estrogen receptor positive- Primary Malignant neoplasm of upper-outer quadrant of right breast in female, estrogen receptor positive- Primary documented in this encounter Care Teams Web Marketing Assistant Relationship Specialty Start Date End Date Dereck Dasilva MD [address] [place] [address] PCP - General Internal Medicine 03/06/25 Shasta Barakat MBBS [address] [place] [address] [email or web address] Primary Oncologist Medical Oncology 02/10/25 Riya Carroll CNP [address] [place] [address] Nurse Practitioner Medical Oncology 03/31/25 Inna Lentz FNP [address] [place] [address] Registered Nurse Nurse Practitioner 04/29/25 Gemma Cai NP [address] [place] [address] [email or web address] Nurse Practitioner Nurse Practitioner 07/21/25 documented as of this encounter Additional Source Comments The information contained in this document represents components of the legal health record. It is not the complete legal health record.[facility]
--- OUTSIDE RECORDS SUMMARY | 2025-08-01 15:20 | XMS_ITS | Encounter Summary ---
Author Organization [facility] Address [address] [place] [address] Phone Care Team Providers Care Steel Roller Name Role Phone Shasta Barakat MBBS Unavailable Dereck Dasilva MD Primary Care Provider Riya Carroll ASSEMBLER MECHANICAL ORDNANCE Unavailable Inna Lentz THERAPEUTIC RADIOLOGIST Unavailable Gemma Cai DENTIST Unavailable Encounter Details Date Type Department Care Team (Late st Contact Info) Description 07/25/2025 Orders Only [facility] [address] [place] [address] Gemma Cai, DENTIST [address] [place] [address] Social History Tobacco Use Types Packs/Day Years [...] Info) Description 08/04/2025 3:00 PM EST Infusion [facility] [address] [place] [address] Shasta Barakat, [facility] [address] [place] [address] [email or web address]@[email or web address] 08/04/2025 3:40 PM EST Office Visit [facility] at [address] [address] Shasta Barakat, EHSAN [address] [place] [address] [email or web address]@[facility] 08/06/2025 10:00 AM EST Infusion [facility] at [address] [address] Shasta Barakat, EHSAN [address] [place] [address] [email or web address]@[facility] Heide Macias, TONIO [address] [place] [address] [email or web address] 08/11/2025 8:00 AM EST Infusion [facility] at [address] [address] Shasta Barakat, EHSAN [address] [place] [address] [email or web address]@[facility] Walt Armendariz, TONIO [address] [place] [address] heraclio@[email or web address] 08/11/2025 9:00 AM EST Office Visit [facility] at [address] [address] Shasta Barakat, EHSAN [address] [place] [address] maurice@[facility] 08/11/2025 10:00 AM EST Infusion [facility] at [address] [address] Shasta Barakat [address] [address] [email or web address]@[facility] Becka Veliz, TONIO [address] [place] [address] [email or web address] 08/18/2025 11:20 AM EST Infusion [facility] at [address] [address] Shasta Barakat, [address] [address] [email or web address]@[facility] 08/18/2025 1:00 PM EST Office Visit [facility] Center at [address] [address] Shasta Barakat [address] [address] maurice@[facility] 08/18/2025 2:40 PM EST Infusion [facility] at [address] [address] Shasta Barakat, [address] [address] [email or web address]@[facility] Heide Macias, TONIO [address] [place] [address] [email or web address] 08/25/2025 3:20 PM EST Infusion [facility] at [address] [address] Shasta Barakat [address] [address] [email or web address]@[facility] Angelica Manzano RN [address] [place] [address] [email or web address] 08/25/2025 4:00 PM EST Office Visit [facility] at [address] [address] Shasta Barakat MBBS [address] [place] [address] [email or web address]@[facility] 08/26/2025 8:40 AM EST Infusion [facility] at [address] [address] Shasta Barakat MBBS [address] [place] [address] [email or web address]@[facility] Maris Lima, TONIO [address] [place] [address] 08/29/2025 8:00 AM EST Infusion [facility] at [address] [address] Shasta Barakat MBBS [address] [place] [address] [email or web address]@[facility] Adrianna Beltrán, TONIO [address] [place] [address] 08/29/2025 9:30 AM EST Office Visit [facility] at [address] [address] Gemma Cai NP [address] [place] [address] 09/01/2025 8:40 AM EST Infusion [facility] at [address] [address] Shasta Barakat MBBS [address] [place] [address] [email or web address]@[email or web address] Pearl Saleem RN [address] [place] [address] 09/05/2025 1:00 PM EST Infusion [facility] at [address] [address] Shasta Barakat MBBS [address] [place] [address] [email or web address]@[facility] 09/05/2025 2:30 PM EST Office Visit [facility] at [address] [address] Gemma Cai NP [address] [place] [address] [email or web address] 09/08/2025 1:20 PM EST Infusion [facility] Center at [address] [address] Shasta Barakat MBBS [address] [place] [address] [email or web address]@[email or web address] Pearl Saleem RN [address] [place] [address] [email or web address] documented as of this encounter Visit Diagnoses Not on filedocumented in this encounter Care Teams Steel Roller Relationship Specialty Start Date End Date Dereck Dasilva MD [address] [place] [address] PCP - General Internal Medicine 03/06/25 Shasta Barakat MBBS [address] [place] [address] [email or web address]@[email or web address] Primary Oncologist Medical Oncology 02/10/25 Riya Carroll CNP [address] [place] [address] Nurse Practitioner Medical Oncology 03/31/25 Inna Lentz FNP [address] [place] [address] Registered Nurse Nurse Practitioner 04/29/25 Gemma Cai, OSCAR [address] [place] [address] [email or web address] Nurse Practitioner Nurse Practitioner 07/21/25 documented as of this encounter Additional Source Comments The information contained in this document represents components of the legal health record. It is not the complete legal health record.[facility]
--- OUTSIDE RECORDS SUMMARY | 2025-08-01 15:20 | XMS_ITS | Encounter Summary ---
Author Organization [facility] Address [address] [facility] [address] [place] [address] Phone Care Team Providers Care Computer Game Designer Name Role Phone Shasta Barakat MBBS Unavailable [phone] Dereck Dasilva MD Primary Care Provider Riya Carroll AVIATION TACTICAL READINESS OFFICER Unavailable Inna Lentz COMMERCIAL SALES SPECIALIST Unavailable [phone] Gemma Cai CONTINUOUS PROCESS TANNER ROTARY DRUM Unavailable Encounter Details Date Type Department Care Team (Late st Contact Info) Description 03/07/2025 Procedure Pass [facility] [address] [place] [address] Social History Tobacco Use Types Packs/Day Years [...] Info) Description 08/04/2025 3:00 PM EST Infusion [facility] at [address] [address] Shasta Barakat, JOHN[address] [address] [email or web address] 08/04/2025 3:40 PM EST Office Visit [facility] at [address] [address] Shasta Barakat, [address] [address] [email or web address] 08/06/2025 10:00 AM EST Infusion [facility] at [address] [address] Shasta Barakat, JOHN[address] [address] [email or web address] Heide Macias, TONIO [address] [place] [address] [email or web address] 08/11/2025 8:00 AM EST Infusion [facility] at [address] [address] Shasta Barakat, JOHN[address] [address] [email or web address] Walt Armendariz RN [address] [place] [address] [email or web address]@[email or web address] 08/11/2025 9:00 AM EST Office [facility] at [address] [address] Shasta Barakat, JOHN[address] [address] [email or web address] 08/11/2025 10:00 AM EST Infusion [facility] at [address] [address] Shasta Barakat, JOHN[address] [address] [email or web address] Becka Veliz RN [address] [place] [address] [email or web address] 08/18/2025 11:20 AM EST Infusion [facility] at [address] [address] Shasta Barakat, [address] [address] [email or web address] 08/18/2025 1:00 PM EST Office Visit [facility] at [address] [address] Shasta Barakat MB[address] [address] [email or web address] 08/18/2025 2:40 PM EST Infusion [facility] at [address] [address] Shasta Barakat MB[address] [address] [email or web address] Heide Macias, TONIO [address] [place] [address] 08/25/2025 3:20 PM EST Infusion [facility] at [address] [address] Shasta Barakat MB[address] [address] [email or web address] Angelica Manzano RN [address] [place] [address] 08/25/2025 4:00 PM EST Office Visit [facility] at [address] [address] Shasta Barakat MB[address] [address] [email or web address] 08/26/2025 8:40 AM EST Infusion [facility] at [address] [address] Shasta Barakat MB[address] [address] [email or web address] Maris Lima RN [address] [place] [address] [email or web address] 08/29/2025 8:00 AM EST Infusion [facility] at [address] [address] Shasta Barakat MB[address] [address] [email or web address]@[facility] Adrianna Beltrán RN [address] [place] [address] 08/29/2025 9:30 AM EST Office Visit [facility] at [address] [address] Gemma Cai, OSCAR [address] [place] [address] [email or web address] 09/01/2025 8:40 AM EST Infusion [facility] at [address] [address] Shasta Barakat, EHSAN [address] [place] [address] [email or web address]@[facility] Pearl Saleem, TONIO [address] [place] [address] [email or web address] 09/05/2025 1:00 PM EST Infusion [facility] at [address] [address] Shasta Barakat MBBS [address] [place] [address] [email or web address]@[facility] 09/05/2025 2:30 PM EST Office Visit [facility] at [address] [address] Gemma Cai, OSCAR [address] [place] [address] [email or web address] 09/08/2025 1:20 PM EST Infusion [facility] at [address] [address] Shasta Barakat MBBS [address] [place] [address] [email or web address]@[facility] Pearl Saleem, RN [address] [place] [address] [email or web address] documented as of this encounter Visit Diagnoses Not on filedocumented in this encounter Additional Health Concerns Infection Onset Date Last Indicated Resolved Time CoV-Risk 06/17/2025 06/17/2025 06/28/2025 1:21 AM EDT documented as of this encounter Care Teams Computer Game Designer Relationship Specialty Start Date End Date Dereck Dasilva MD [address] [place] [address] PCP - General Internal Medicine 03/06/25 Shasta Barakat MBBS [address] [place] [address] [email or web address] Primary Oncologist Medical Oncology 02/10/25 Riya Carroll CNP [address] [place] [address] [email or web address] Nurse Practitioner Medical Oncology 03/31/25 Inna Lentz FNP [address] [place] [address] [email or web address] Registered Nurse Nurse Practitioner 04/29/25 Gemma Cai NP [address] [place] [address] [email or web address] Nurse Practitioner Nurse Practitioner 07/21/25 documented as of this encounter Additional Source Comments The information contained in this document represents components of the legal health record. It is not the complete legal health record.[facility]
--- OUTSIDE RECORDS SUMMARY | 2025-08-01 15:20 | XMS_ITS | Encounter Summary ---
Author Organization [facility] Address [address] [facility] [address] [place] [address] Phone Care Team Providers Care Shorthand Teacher Name Role Phone Shasta Barakat MBBS Unavailable Dereck Dasilva MD Primary Care Provider [phone] Riya Carroll GUZZLER BUILDER Unavailable Inna Lentz PLATING INSPECTOR Unavailable [phone] Gemma Cai SALES ENABLEMENT CONSULTANT Unavailable Encounter Details Date Type Department Care Team (Late st Contact Info) Description 03/31/2025 Procedure Pass [facility] [address] [place] [address] Social History Tobacco Use Types Packs/Day Years [...] with a working camera? Not on file Intimate Partner Violence Answer Date R ecorded Are you denied basic needs s uch as food, clothing, or medical care? No 03/31/2025 In the past 12 months have y ou been in a relationship with a person who hurts, threatens, or tries to control you? No 03/31/2025 Are you denied basic needs s uch as food, clothing, or medical care? No 03/31/2025 In the past 12 months have y ou been in a relationship with a person who hurts, threatens, or tries to control you? No 03/31/2025 Comments Unknown Sex and Gender Information Value Date Recorded Sex Assigned at Not on file Legal Sex Female 11:13 AM EDT Gender Identity Not on file Sexual Orientation Not on file documented as of this encounter Plan of Treatment Upcoming Encounters Date Type Department Care Team (Late st Contact Info) Description 08/04/2025 3:00 PM EST Infusion [facility] at [address] [address] Shasta Barakat MBBS [address] [place] [address] [email or web address] 08/04/2025 3:40 PM EST Office Visit [facility] at [address] [address] Shasta Barakat MBBS [address] [place] [address] [email or web address]@[facility] 08/06/2025 10:00 AM EST Infusion [facility] at [address] [address] Shasta Barakat MBBS [address] [place] [address] [email or web address]@[facility] Heide Macias, TONIO [address] [place] [address] [email or web address] 08/11/2025 8:00 AM EST Infusion [facility] at [address] [address] Shasta Barakat [address] [address] [email or web address]@[email or web address] Walt Armendariz RN [address] [place] [address] [email or web address] 08/11/2025 9:00 AM EST Office Visit [facility] at [address] [address] Shasta Barakat [address] [address] [email or web address]@[facility] 08/11/2025 10:00 AM EST Infusion [facility] at [address] [address] Shasta Barakat [address] [address] [email or web address]@[facility] Becka Veliz RN [address] [place] [address] [email or web address] 08/18/2025 11:20 AM EST Infusion [facility] at [address] [address] Shasta Barakat [address] [address] [email or web address]@[facility] 08/18/2025 1:00 PM EST Office Visit [facility] at [address] [address] Shasta Barakat [address] [address] [email or web address]@[facility] 08/18/2025 2:40 PM EST Infusion [facility] at [address] [address] Shasta Barakat [address] [address] [email or web address]@[facility] Heide Macias RN [address] [place] [address] 08/25/2025 3:20 PM EST Infusion [facility] at [address] [address] Shasta Barakat [address] [address] [email or web address]@[facility] Angelica Manazno RN [address] [place] [address] 08/25/2025 4:00 PM EST Office Visit [facility] at [address] [address] Shasta Barakat MBBS [address] [place] [address] [email or web address]@[facility] 08/26/2025 8:40 AM EST Infusion [facility] at [address] [address] Shasta Barakat MBBS [address] [place] [address] [email or web address]@[facility] Maris Lima RN [address] [place] [address] 08/29/2025 8:00 AM EST Infusion [facility] at [address] [address] Shasta Barakat, EHSAN [address] [place] [address] [email or web address] Adrianna Beltrán, TONIO [address] [place] [address] 08/29/2025 9:30 AM EST Office Visit [facility] at [address] [address] Gemma Cai NP [address] [place] [address] [email or web address] 09/01/2025 8:40 AM EST Infusion [facility] at [address] [address] Shasta Barakat, EHSAN [address] [place] [address] [email or web address] Pearl Saleem, TONIO [address] [place] [address] 09/05/2025 1:00 PM EST Infusion [facility] at [address] [address] Shasta Barakat, EHSAN [address] [place] [address] [email or web address] 09/05/2025 2:30 PM EST Office Visit [facility] at [address] [address] Gemma Cai, OSCAR [address] [place] [address] [email or web address] 09/08/2025 1:20 PM [facility] [address] [place] [address] Shasta Barakat MBBS [address] [place] [address] [email or web address]@[email or web address] Pearl Saleem, TONIO [address] [place] [address] [email or web address] documented as of this encounter Visit Diagnoses Not on filedocumented in this encounter Additional Health Concerns Infection Onset Date Last Indicated Resolved Time CoV-Risk 06/17/2025 06/17/2025 06/28/2025 1:21 AM EDT documented as of this encounter Care Teams Shorthand Teacher Relationship Specialty Start Date End Date Dereck Dasilva MD [address] [place] [address] PCP - General Internal Medicine 03/06/25 Shasta Barakat MBBS [address] [place] [address] [email or web address] Primary Oncologist Medical Oncology 02/10/25 Riya Carroll CNP [address] [place] [address] [email or web address] Nurse Practitioner Medical Oncology 03/31/25 Inna Lentz FNP [address] [place] [address] Registered Nurse Nurse Practitioner 04/29/25 Gemma Cai NP [address] [place] [address] Nurse Practitioner Nurse Practitioner 07/21/25 documented as of this encounter Additional Source Comments The information contained in this document represents components of the legal health record. It is not the complete legal health record.[facility]
--- OUTSIDE RECORDS SUMMARY | 2025-08-01 15:20 | XMS_ITS | Encounter Summary ---
Author Organization [facility] Address [address] [facility] [place] [address] Phone Care Team Providers Care Crochet Machine Operator Name Role Phone Shasta Barakat MBBS Unavailable Dereck Dasilva MD Primary Care Provider Riya Carroll ADJUNCT PHILOSOPHY FACULTY Unavailable Inna Lentz PLATING TANK OPERATOR APPRENTICE Unavailable Gemma Cai NEEDLE CONTROL CHENILLER Unavailable Encounter Details Date Type Department Care Team (Late st Contact Info) Description 07/28/2025 Telephone [facility] [address] [place] [address] Shasta Barakat MBBS [address] [place], [place] [id number] [email or web address] [place] Social History Tobacco Use Types Packs/Day Years [...] on file documented as of this encounter Progress Notes * Afia Ryan - 07/28/2025 8:23 AM EST Spoke w/pt Pt canceled apts for today 07/28/25 as her mother . Pt states she will be back for her apts on 08/04/25 I adjusted apts documented in this encounter Plan of Treatment Upcoming Encounters Date Type Department Care Team (Late st Contact Info) Description 08/04/2025 3:00 PM EST Infusion [facility] at [address] [address] Shasta Barakat [address] [address] [email or web address] 08/04/2025 3:40 PM EST Office Visit [facility] at [address] [address] Shasta Barakat, HESAN [address] [place] [address] [email or web address]@[facility] 08/06/2025 10:00 AM EST Infusion [facility] at [address] [address] Shasta Barakat MBBS [address] [place] [address] [email or web address] Heide Macias, TONIO [address] [place] [address] [email or web address] 08/11/2025 8:00 AM EST Infusion [facility] at [address] [address] Shasta Barakat, EHSAN [address] [place] [address] [email or web address] Walt Armendariz, TONIO [address] [place] [address] [email or web address] 08/11/2025 9:00 AM EST [facility] at [address] [address] Shasta Barakat, [address] [address] [email or web address] 08/11/2025 10:00 AM EST Infusion [facility] at [address] [address] Shasta Barakat, [address] [address] [email or web address]@[facility] Becka Veliz RN [address] [place] [address] [email or web address] 08/18/2025 11:20 AM EST Infusion [facility] at [address] [address] Shasta Barakat, [address] [address] [email or web address] 08/18/2025 1:00 PM EST Office Visit [facility] at [address] [address] Shasta Barakat, [address] [address] [email or web address]@[facility] 08/18/2025 2:40 PM EST Infusion [facility] at [address] [address] Shasta Barakat, [address] [address] [email or web address]@[facility] Heide Macias, TONIO [address] [place] [address] 08/25/2025 3:20 PM EST Infusion [facility] at [address] [address] Shasta Barakat [address] [address] [email or web address] Angelica Manzano RN [address] [place] [address] 08/25/2025 4:00 PM EST Office Visit [facility] at [address] [address] Shasta Barakat [address] [address] [email or web address] 08/26/2025 8:40 AM EST Infusion [facility] at [address] [address] Shasta Barakat [address] [address] [email or web address]@[facility] Maris Lima RN [address] [place] [address] [email or web address] 08/29/2025 8:00 AM EST Infusion [facility] at [address] [address] Shasta Barakat [address] [address] [email or web address]@[facility] Adrianna Beltrán RN [address] [place] [address] 08/29/2025 9:30 AM EST Office Visit [facility] at [address] [address] Gemma Cai, OSCAR [address] [place] [address] [email or web address] 09/01/2025 8:40 AM EST Infusion [facility] at [address] [address] Shasta Barakat MBBS [address] [place] [address] [email or web address] Narayan Kumar, Pearl Bender, TONIO [address] [place] [address] [email or web address] 09/05/2025 1:00 PM EST Infusion [facility] at [address] [address] Shasta Barakat MBBS [address] [place] [address] [email or web address] 09/05/2025 2:30 PM EST Office Visit [facility] at [address] [address] Gemma Cai, OSCAR [address] [place] [address] [email or web address] 09/08/2025 1:20 PM EST Infusion [facility] at [address] [address] Shasta Barakat MBBS [address] [place] [address] [email or web address] Pearl Saleem, TONIO [address] [place] [address] [email or web address] documented as of this encounter Visit Diagnoses Not on filedocumented in this encounter Care Teams Crochet Machine Operator Relationship Specialty Start Date End Date Dereck Dasilva MD [address] [place] [address] PCP - General Internal Medicine 03/06/25 Shasta Barakat MBBS [address] [place] [address] [email or web address] Primary Oncologist Medical Oncology 02/10/25 Riya Carroll CNP [address] [place] [address] [email or web address] Nurse Practitioner Medical Oncology 03/31/25 Inna Lentz FNP [address] [place] [address] [email or web address] Registered Nurse Nurse Practitioner 04/29/25 Gemma Cai NP [address] [place] [address] [email or web address] Nurse Practitioner Nurse Practitioner 07/21/25 documented as of this encounter Additional Source Comments The information contained in this document represents components of the legal health record. It is not the complete legal health record.[facility]
--- OUTSIDE RECORDS SUMMARY | 2025-08-01 15:20 | XMS_ITS | Encounter Summary ---
Author Organization [facility] Address [address] [place] [address] Phone Care Team Providers Care Preventive Medicine Physician Name Role Phone Shasta Barakat MBBS Unavailable Dereck Dasilva MD Primary Care Provider Riya Carroll SILK SCREEN PRINTER Unavailable Inna Lentz GOODYEAR WELTER Unavailable Gemma Cai INFERTILITY NURSE Unavailable Encounter Details Date Type Department Care Team (Late st Contact Info) Description 07/21/2025 Orders Only [facility] at [address] [address] Yakelin Choe [address] [place] [phone] [email or web address] Malignant neoplasm of upper-outer quadrant of right [...] Info) Description 08/04/2025 3:00 PM EST Infusion [facility] at [address] [address] Shasta Barakat, JOHN [address] [place] [address] [email or web address] 08/04/2025 3:40 PM EST Office Visit [facility] at [address] [address] Shasta Barakat [address] [address] [email or web address] 08/06/2025 10:00 AM EST Infusion [facility] at [address] [address] Shasta Barakat, JOHN[address] [address] [email or web address] Heide Macias RN [address] [place] [address] [email or web address] 08/11/2025 8:00 AM EST Infusion [facility] at [address] [address] Shasta Barakat, JOHN[address] [address] [email or web address] Walt Armendariz RN [address] [place] [address] [email or web address] 08/11/2025 9:00 AM EST Office Visit [facility] at [address] [address] Shasta Barakat [address] [address] [email or web address] 08/11/2025 10:00 AM EST Infusion [facility] at [address] [address] Shasta Barakat [address] [address] [email or web address] Becka Veliz RN [address] [place] [address] [email or web address] 08/18/2025 11:20 AM EST Infusion [facility] at [address] [address] Shasta Barakat, JOHN[address] [address] [email or web address] 08/18/2025 1:00 PM EST Office Visit [facility] at [address] [address] Shasta Barakat [address] [address] [email or web address] 08/18/2025 2:40 PM EST Infusion [facility] at [address] [address] Shasta Barakat [address] [address] [email or web address] Heide Macias, TONIO [address] [place] [address] [email or web address] 08/25/2025 3:20 PM EST Infusion [facility] at [address] [address] Shasta Barakat MBBS [address] [place] [address] [email or web address] Angelica Manzano RN [address] [place] [address] [email or web address] 08/25/2025 4:00 PM EST Office Visit [facility] at [address] [address] Shasta Barakat MBBS [address] [place] [address] [email or web address] 08/26/2025 8:40 AM EST Infusion [facility] at [address] [address] Shasta Barakat MBBS [address] [place] [address] [email or web address] Maris Lima, TONIO [address] [place] [address] 08/29/2025 8:00 AM EST Infusion [facility] at [address] [address] Shasta Barakat MBBS [address] [place] [address] [email or web address] Adrianna Beltrán, TONIO [address] [place] [address] 08/29/2025 9:30 AM EST Office Visit [facility] at [address] [address] Gemma Cai, OSCAR [address] [place] [address] 09/01/2025 8:40 AM EST Infusion [facility] at [address] [address] Shasta Barakat MBBS [address] [place] [address] [email or web address] Pearl Saleem, TONIO [address] [place] [address] 09/05/2025 1:00 PM EST Infusion [facility] at [address] [address] Shasta Barakat [address] [address] [email or web address] 09/05/2025 2:30 PM EST Office Visit [facility] at [address] [address] Gemma Cai, OSCAR [address] [place] [address] [email or web address] 09/08/2025 1:20 PM EST Infusion [facility] at [address] [address] Shasta Barakat MBBS [address] [place] [address] [email or web address]vinb[facility] boswell medical centersherry [facility] Pearl Saleem, TONIO [address] [place] [address] [email or web address] Scheduled Orders Name Type Priority Associated Diagnoses Orde r Schedule CBC and Differential Lab Routine Malignant neoplasm of upper-outer quadrant of right breast in female, estrogen receptor positive Expected: 07/21/2025, Expires: 07/21/2026 Comprehensive Metabolic Panel (CMP) Lab Routine Malignant neoplasm of upper-outer quadrant of right breast in female, estrogen receptor positive Expected: 07/21/2025, Expires: 07/21/2026 documented as of this encounter Visit Diagnoses Diagnosis Malignant neoplasm of upper-outer quadrant of right breast in female, estrogen receptor positive- Primary Malignant neoplasm of upper-outer quadrant of right breast in female, estrogen receptor positive- Primary documented in this encounter Care Teams Preventive Medicine Physician Relationship Specialty Start Date End Date Dereck Dasilva MD [address] [place] [address] PCP - General Internal Medicine 03/06/25 Shasta Barakat MBBS [address] [place] [address] [email or web address] Primary Oncologist Medical Oncology 02/10/25 Riya Carroll CNP [address] [place] [address] Nurse Practitioner Medical Oncology 03/31/25 Inna Lentz FNP [address] [place] [address] Registered Nurse Nurse Practitioner 04/29/25 Gemma Cai NP [address] [place] [address] Nurse Practitioner Nurse Practitioner 07/21/25 documented as of this encounter Additional Source Comments The information contained in this document represents components of the legal health record. It is not the complete legal health record.[facility]
--- OUTSIDE RECORDS SUMMARY | 2025-08-01 15:20 | XMS_ITS | Encounter Summary ---
Author Organization [facility] Address [address] [place] [address] Phone Care Team Providers Care Supervisor Estimator And Drafter Name Role Phone RoshniCristytwyla Solorzano MBBS Unavailable Dereck Dasilva MD Primary Care Provider Riya Carroll GOSPEL SINGER Unavailable Inna Lentz SHIPYARD SUPERVISOR Unavailable [phone] Gemma Cai HAND PAINTER Unavailable Encounter Details Date Type Department Care Team (Late st Contact Info) Description 06/17/2025 Procedure Pass [facility], Ct Scan - [address] [address] Social History Tobacco Use Types Packs/Day Years [...] on file documented as of this encounter Functional Status * Calculated C-SSRS Risk Score (Lifetime/Recent) Answer Date of Assessment Author No Risk Indicated 06/17/2025 3:15 PM EDT Betina Bautista RN * [place] Suicide Severity Rating Scale (Screener/Recent Self-Report) Question Answer Date of Assessment Author 1. Wish to be (Past 1 Month) No 025 3:15 PM EDT Betina Bautista RN 2. Non-Specific Active Suici lilly Thoughts (Past 1 Month) No 06/17/2025 3:15 PM EDT Moris Bautista RN 6. Suicidal Behavior (Lifetime) No 3:15 PM EDT Betina Bautista RN documented as of this encounter Plan of Treatment Upcoming Encounters Date Type Department Care Team (Late st Contact Info) Description 08/04/2025 3:00 PM EST Infusion [facility] at [address] [address] Shasta Barakat, [address] [address] [email or web address] 08/04/2025 3:40 PM EST Office Visit [facility] at [address] [address] Shasta Barakat, [address] [address] [email or web address] 08/06/2025 10:00 AM EST Infusion [facility] at [address] [address] Shasta Barakat, [address] [address] [email or web address] Heide Macias RN [address] [place] [address] [email or web address] 08/11/2025 8:00 AM EST Infusion [facility] at [address] [address] Shasta Barakat, [address] [address] [email or web address] Walt Armendariz RN [address] [place] [address] [email or web address] [facility] 08/11/2025 9:00 AM EST Office Visit [facility] at [address] [address] Shasta Barakat, JOHN[address] [address] [email or web address] 08/11/2025 10:00 AM EST Infusion [facility] at [address] [address] Shasta Barakat, [address] [address] [email or web address] Becka Veliz, TONIO [address] [place] [address] [email or web address] 08/18/2025 11:20 AM EST Infusion [facility] at [address] [address] Shasta Barakat, [address] [address] [email or web address] 08/18/2025 1:00 PM EST Office Visit [facility] at [address] [address] Shasta Barakat [address] [address] [email or web address] 08/18/2025 2:40 PM EST Infusion [facility] [place] at [address] [address] Shasta Barakat [address] [address] [email or web address] Heide Macias, TONIO [address] [place] [address] [email or web address] 08/25/2025 3:20 PM EST Infusion [facility] at [address] [address] Shasta Barakat, JOHN[address] [address] [email or web address] [facility] Angelica Manzano RN [address] [place] [address] 08/25/2025 4:00 PM EST Office Visit [facility] at [address] [address] Shasta Barakat [address] [address] [email or web address] 08/26/2025 8:40 AM EST Infusion [facility] at [address] [address] Shasta Barakat [address] [address] [email or web address] Maris Lima, TONIO [address] [place] [address] 08/29/2025 8:00 AM EST Infusion [facility] at [address] [address] Shasta Barakat [address] [address] [email or web address] Adrianna Beltrán, TONIO [address] [place] [address] [email or web address] 08/29/2025 9:30 AM EST Office Visit [facility] at [address] [address] Gemma Cai, HAND PAINTER [address] [place] [address] 09/01/2025 8:40 AM EST Infusion [facility] at [address] [address] Shasta Barakat MBBS [address] [place] [address] [email or web address] Pearl Saleem, TONIO [address] [place] [address] [email or web address] 09/05/2025 1:00 PM EST Infusion [facility] at [address] [address] Shasta Barakat MBBS [address] [place] [address] [email or web address] 09/05/2025 2:30 PM EST Office Visit [facility] at [address] [address] Gemma Cai, HAND PAINTER [address] [place] [address] [email or web address] 09/08/2025 1:20 PM EST Infusion [facility] at [address] [address] Shasta Barakat MBBS [address] [place] [address] [email or web address] Narayan Kumar, Pearl Bender, RN [address] [place] [address] [email or web address] documented as of this encounter Visit Diagnoses Not on filedocumented in this encounter Additional Health Concerns Infection Onset Date Last Indicated Resolved Time CoV-Risk 06/17/2025 06/17/2025 06/28/2025 1:21 AM EDT documented as of this encounter Care Teams Supervisor Estimator And Drafter Relationship Specialty Start Date End Date Dereck Dasilva MD [address] [place] [address] PCP - General Internal Medicine 03/06/25 Shasta Barakat MBBS [address] [place] [address] [email or web address] Primary Oncologist Medical Oncology 02/10/25 Riya Carroll CNP [address] [place] [address] [email or web address] Nurse Practitioner Medical Oncology 03/31/25 Inna Lentz FNP [address] [place] [address] [email or web address] Registered Nurse Nurse Practitioner 04/29/25 Gemma Cai NP [address] [place] [address] [email or web address] Nurse Practitioner Nurse Practitioner 07/21/25 documented as of this encounter Additional Source Comments The information contained in this document represents components of the legal health record. It is not the complete legal health record.[facility]
== END 2025-08-01 15:16 | disposition home or self-care (01) ==
LOC: HO.CT 15:15
PROVIDERS: PCP Internal Medicine; Visit Provider Internal Medicine Pulmonary Disease
DX: Z12.2 Encounter for screening for malignant neoplasm of respiratory organs (principal); Z87.891 Personal history of nicotine dependence
CPT/HCPCS: 71271

== ENCOUNTER → 2025-08-01 15:17 | Outpatient (BNV) | payer OTHER, SELFPAY | PROVIDERS: PCP Internal Medicine; Visit Provider Radiology Diagnostic Radiology | DX: Z12.2 Encounter for screening for malignant neoplasm of respiratory organs (principal); Z87.891 Personal history of nicotine dependence; R91.8 Other nonspecific abnormal finding of lung field | CPT/HCPCS: 71271 ==